=== PATIENT | female | born 1930 | race Caucasian/White ===

== ENCOUNTER 2018-03-28 13:56 | Outpatient (CLI) | payer MEDICARE, OTHER | END 2018-03-28 13:57 | disposition critical access hospital (66) | LOC: EMS 13:56 | PROVIDERS: ATTEND Surgery | DX: R53.1 Weakness (principal); R53.83 Other fatigue | CPT/HCPCS: A0425; A0429 ==

== ENCOUNTER 2018-03-28 14:09 | Emergency (ER) | payer MEDICARE, OTHER ==
--- NOTE | 2018-03-28 14:53 | ED Physician Documentation ---
History of Present Illness - Stated complaint Stated Complaint: FEVER - Chief complaint Chief Complaint: Fever - History obtained from History obtained from: Family - History of Present Illness Timing: Today Pain level max: 0 Pain level now: 0 - Additonal information Additional information: 87-year-old female with history of hypertension, pericardial cyst, asthma here from [facility] via EMS with son and daughter at the bedside who reported that patient had a fever today and was acting "lethargic". Patient and family denies any report of coughing, vomiting, diarrhea, headache. Denies any recent trauma or travel. Patient also has history of dementia so is unable to give good history but family the bedside provided more information. Review of Systems Unable to obtain: Dementia Ten Systems: 10 systems reviewed and negative Constitutional: reports: Fever. denies: Chills, Myalgias Ears: denies: Ear pain Nose: denies: Rhinorrhea / runny nose, Congestion Throat: denies: Sore throat Cardiac: denies: Chest pain / pressure Respiratory: denies: Dyspnea, Cough GI: denies: Abdominal Pain, Nausea, Vomiting, Diarrhea : denies: Dysuria, Frequency Skin: denies: Rash Musculoskeletal: reports: Other (Uses cane for walking). denies: Neck pain, Back pain, Extremity pain, Joint pain Neurologic: reports: Confused (Chronic related to dementia but currently on on baseline per family). denies: Generalized weakness, Focal weakness, Difficulty speaking, Syncope, Seizure, Altered mental status, Unresponsive, Headache, Head injury, LOC PD PAST MEDICAL HISTORY - Past Medical History Cardiovascular: Hypertension, High cholesterol, Other Respiratory: Asthma Neuro: Dementia Endocrine/Autoimmune: None GI: None RAILCAR SWITCHER: None : None HEENT: None Musculoskeletal: None Other Past Medical History: pericardial cyst - Past Surgical History Past Surgical History: Yes Ortho: Knee replacement /RAILCAR SWITCHER: Mastectomy - Present Medications Home Medications: Ambulatory Orders Medication Instructions Recorded Confirmed Aspirin 03/28/18 Atorvastatin [Lipitor] 03/28/18 Calcium Carbonate/Vitamin D3 03/28/18 [Oyster Shell 250 mg + Vit D Tb] Cephalexin [Keflex] 500 mg PO TID 7 Days #21 capsule 03/28/18 Donepezil [Aricept] 10 mg PO DAILY 03/28/18 03/28/18 Fluticasone 44 Mcg [Flovent] 03/28/18 Fluticasone 44 Mcg [Flovent] 1 puffs INH BID 03/28/18 03/28/18 Ipratropium [Atrovent] 1 puffs INH Q6H 03/28/18 03/28/18 Lisinopril/Hydrochlorothiazide 03/28/18 [Lisinopril-Hctz 20-25 mg Tab] Memantine HCl 10 mg PO 03/28/18 Triamterene/Hydrochlorothiazid 03/28/18 [Triamterene-Hctz 75-50 mg Tab] - Allergies Allergies/Adverse Reactions: Allergies Allergy/AdvReac Type Severity Reaction Status Date / Time No Known Drug Allergies Allergy Verified 03/28/18 16:27 - Social History Does the pt smoke?: No Smoking Status: Never smoker Does the pt drink ETOH?: No Does the pt have substance abuse?: No - Immunizations Immunizations are current?: Yes - POLST Patient has POLST: No PD ED PE NORMAL - General General: No acute distress, Well developed/nourished, Other (Awake and alert. Oriented to her name and birthday and family members at the bedside.) - HEENT HEENT: Atraumatic, PERRL, EOMI, Moist mucous membranes, Pharynx benign - Neck Neck: Supple, no meningeal sign - Cardiac Cardiac: RRR, No murmur - Respiratory Respiratory: No respiratory distress, Clear bilaterally - Abdomen Abdomen: Normal bowel sounds, Soft, Non tender, Non distended - Derm Derm: Normal color, Warm and dry, No rash, Other (Right hand dorsum with purplish ecchymosis that is nontender and no drainage nor swelling.) - Extremities Extremities: No deformity, No tenderness to palpate, Normal ROM s pain, No edema - Neuro Neuro: No motor deficit, No sensory deficit, Normal speech, Other (Awake alert oriented to her name and children at the bedside. Follows simple directions.Cooperative and pleasant. Clear speech. No pronator drift. Strength all extremities 5/5.) Eye Opening: Spontaneous Motor: Obeys Commands Verbal: Confused GCS Score: 14 - Psych Psych: Normal mood, Normal affect Results - Vitals Vitals: Vital Signs - 24 hr 03/28/18 14:12 Temperature 37.8 C H Heart Rate 84 Respiratory 16 Rate Blood Pressure 159/66 H O2 Saturation 96 Oxygen O2 Source Room air - Labs Labs: Laboratory Tests 03/28/18 03/28/18 03/28/18 15:04 15:04 15:04 WBC 16.6 H RBC 4.29 Hgb 12.1 Hct 36.3 L MCV 84.6 MCH 28.3 MCHC 33.4 RDW 14.0 Plt Count 179 MPV 7.4 L Neut # (Auto) 15.2 H Lymph # (Auto) 0.3 L [place] # (Auto) 1.0 Eos # (Auto) 0.0 Baso # (Auto) 0.0 Absolute Nucleated RBC 0.00 Nucleated RBC % 0.0 Sodium 131 L Potassium 3.2 L Chloride 93 L Carbon Dioxide 27 Anion Gap 11.0 BUN 31 H Creatinine 1.2 H Estimated GFR (MDRD) 42 L Glucose 200 H Lactic Acid 2.0 Calcium 9.4 Total Bilirubin 0.7 AST 27 ALT 15 Alkaline Phosphatase 43 Total Protein 7.5 Albumin 3.7 Globulin 3.8 Albumin/Globulin Ratio 1.0 Lipase 25 Urine Color Urine Clarity Urine pH Ur Specific [place] Urine Protein Urine Glucose (UA) Urine Ketones Urine Occult Blood Urine Nitrite Urine Bilirubin Urine Urobilinogen Ur Leukocyte Esterase Urine RBC Urine WBC Ur Squamous Epith Cells Urine Bacteria Ur Microscopic Review Urine Culture Comments 03/28/18 15:48 WBC RBC Hgb Hct MCV MCH MCHC RDW Plt Count MPV Neut # (Auto) Lymph # (Auto) [place] # (Auto) Eos # (Auto) Baso # (Auto) Absolute Nucleated RBC Nucleated RBC % Sodium Potassium Chloride Carbon Dioxide Anion Gap BUN Creatinine Estimated GFR (MDRD) Glucose Lactic Acid Calcium Total Bilirubin AST ALT Alkaline Phosphatase Total Protein Albumin Globulin Albumin/Globulin Ratio Lipase Urine Color DARK YELLOW Urine Clarity HAZY Urine pH 6.0 Ur Specific [place] 1.020 Urine Protein TRACE Urine Glucose (UA) NEGATIVE Urine Ketones NEGATIVE Urine Occult Blood SMALL H Urine Nitrite NEGATIVE Urine Bilirubin NEGATIVE Urine Urobilinogen 0.2 (NORMAL) Ur Leukocyte Esterase TRACE H Urine RBC 0-5 Urine WBC 6-10 H Ur Squamous Epith Cells FEW Squamous Urine Bacteria None Seen Ur Microscopic Review INDICATED Urine Culture Comments INDICATED PD MEDICAL DECISION MAKING - ED course Complexity details: re-evaluated patient ([id number] ), considered differential (UTI, pneumonia, sepsis), d/w patient, d/w family Departure - Departure Disposition: 01 Home, Self Care Clinical Impression: Hypokalemia Fever Qualifiers: Encounter type: initial encounter UTI (urinary tract infection) Qualifiers: Urinary tract infection type: acute cystitis Hematuria presence: without hematuria Qualified Code(s): N30.00 - Acute cystitis without hematuria Condition: Stable Instructions: ED Fever Control, ED Potassium Deficiency, ED UTI Cystitis Female Prescriptions: Cephalexin [Keflex] 500 mg PO TID 7 Days #21 capsule Comments: Drink 6 glasses of water a day. Take the antibiotics for your urinary tract infection. Blood cultures and urine cultures are pending. Eat foods that are high in potassium. Have your primary doctor recheck your potassium level on Friday. If worse return to the emergency room.
[2018-03-28 15:20] LABS: BASOPHILS % (AUTO) 0.1 %; HGB - HEMOGLOBIN 12.1 g/dL (12.0-16.0); LYMPHOCYTES # (AUTO) 0.3 10^3/uL (1.5-3.5); LYMPHOCYTES % (AUTO) 2.1 %; MEAN CORPUSCULAR HEMOGLOBIN 28.3 pg (27.0-31.0); MEAN CORPUSCULAR HGB CONC 33.4 g/dL (32.0-36.0); MEAN CORPUSCULAR VOLUME 84.6 fL (81.0-99.0); MEAN PLATELET VOLUME 7.4 fL (7.9-10.8); MONOCYTES % (AUTO) 6.2 %; NEUTROPHILS # (AUTO) 15.2 10^3/uL (1.5-6.6); NEUTROPHILS % (AUTO) 91.6 %; PLT - PLATELET COUNT 179 10^3/uL (130-450); RED BLOOD COUNT 4.29 10^6/uL (4.20-5.40); WHITE BLOOD COUNT 16.6 x10^3/uL (4.8-10.8)
[2018-03-28 15:27] LABS: ALBUMIN 3.7 g/dL (3.2-5.5); BILIRUBIN,TOTAL 0.7 mg/dL (0.2-1.0); CALCIUM 9.4 mg/dL (8.5-10.3); CREATININE 1.2 mg/dL (0.4-1.0); TOTAL PROTEIN 7.5 g/dL (6.7-8.2)
--- NOTE | 2018-03-28 15:40 | XRAY Report ---
Reason: chest pain Procedure Date: 03/28/2018 Accession Number: [id number] / [id number] Procedure: XR - Chest 1 View X-Ray CPT Code: 79988 FULL RESULT: EXAM: CHEST RADIOGRAPHY EXAM DATE: 03/28/2018 03:10 PM. CLINICAL HISTORY: Chest pain. COMPARISON: None. TECHNIQUE: 1 view. FINDINGS: Lungs/Pleura: Right cardiophrenic angle fat pad versus atelectasis.. No pleural effusion. No pneumothorax. Plan the mid diaphragms. Mediastinum: Within exam limitations, the cardiomediastinal contour is normal. Other: None. IMPRESSION: Right basilar atelectasis versus fat pad RADIA
[2018-03-28 16:02] LABS: BILIRUBIN,URINE NEGATIVE (NEGATIVE); GLUCOSE, URINE (UA) NEGATIVE (NEGATIVE); KETONES,URINE (UA) NEGATIVE (NEGATIVE); LEUKOCYTE ESTERASE, URINE TRACE (NEGATIVE); NITRITE,URINE NEGATIVE (NEGATIVE); OCCULT BLOOD,URINE SMALL (NEGATIVE); PROTEIN,URINE TRACE mg/dL (NEGATIVE); UROBILINOGEN,URINE 0.2 (NORMAL) E.U./dL (NORMAL)
[2018-03-28 16:04] LABS: CLARITY,URINE HAZY (CLEAR)
[2018-03-28 16:13] LABS: BACTERIA,URINE None Seen /HPF (None Seen); RBC,URINE 0-5 /HPF (0-5); SQUAMOUS EPITHELIAL CELL,UR FEW Squamous (<= Few)
[2018-03-28] MEDS ORDERED: cefTRIAXone 1 GM in SODIUM CHLORIDE 0.9% MINIBAG 100 ML IV STA (16:16)
[2018-03-28] MEDS ORDERED: SODIUM CHLORIDE 0.9% 500 ML IV ONE (16:16)
[2018-03-28] MEDS ORDERED: POTASSIUM CHLORIDE 20 MEQ TABLET PO STA (16:17)
[2018-03-28] MEDS ORDERED: ACETAMINOPHEN 325 MG TABLET PO STA (17:22)
[2018-03-28 17:49] VITALS: BP 148/55
== END 2018-03-28 17:57 | disposition home or self-care (01) ==
LOC: EDUNIT# → ED 14:09
DX: E87.6 Hypokalemia (principal); R50.9 Fever, unspecified; N30.00 Acute cystitis without hematuria; I10 Essential (primary) hypertension; F03.90 Unspecified dementia, unspecified severity, without behavioral disturbance, psychotic disturbance, mood disturbance, and anxiety
CPT/HCPCS: 36415; 71045; 80053; 81001; 83605; 83690; 85025; 87040; 87086; 87181; 96365; 99283; A9270; 81003

== ENCOUNTER 2018-03-29 09:55 | Outpatient (CLI) | payer MEDICARE, OTHER | END 2018-03-29 09:56 | disposition critical access hospital (66) | LOC: EMS 09:55 | PROVIDERS: ATTEND Surgery | DX: R53.1 Weakness (principal); R41.0 Disorientation, unspecified | CPT/HCPCS: A0425; A0429 ==

== ENCOUNTER 2018-03-29 10:15 | Inpatient (IN) | payer MEDICARE, OTHER ==
[2018-03-29] MEDS ORDERED: VANCOMYCIN INJ 1.5 GM in SODIUM CHLORIDE 0.9% 500 ML IV STA (10:19)
--- NOTE | 2018-03-29 10:20 | ED Physician Documentation ---
History of Present Illness - Stated complaint Stated Complaint: WEAKNESS - History obtained from History obtained from: Patient, EMS - History of Present Illness Timing: Today (This is a leonard but demented 87-year-old woman who was called back from assisted living because she was seen last night with a fever and weakness. She had a white count of 16,000 and her blood cultures are both preliminarily positive for staph. She did have a fever this morning of 101. She is a poor historian, she complains of some breathing difficulties that been going on for years. When asked her if she has a cough she responds "not if I can help it." She does not remember being here last night.) Review of Systems Unable to obtain: Dementia PD PAST MEDICAL HISTORY - Past Medical History Cardiovascular: Hypertension, High cholesterol, Other Respiratory: Asthma Neuro: Dementia Endocrine/Autoimmune: None GI: None MR TEACHER: None : None HEENT: None Musculoskeletal: None - Past Surgical History Past Surgical History: Yes Ortho: Knee replacement /MR TEACHER: Mastectomy - Present Medications Home Medications: Ambulatory Orders Medication Instructions Recorded Confirmed Aspirin 03/28/18 Atorvastatin [Lipitor] 03/28/18 Calcium Carbonate/Vitamin D3 03/28/18 [Oyster Shell 250 mg + Vit D Tb] Cephalexin [Keflex] 500 mg PO TID 7 Days #21 capsule 03/28/18 Donepezil [Aricept] 10 mg PO DAILY 03/28/18 03/28/18 Fluticasone 44 Mcg [Flovent] 03/28/18 Fluticasone 44 Mcg [Flovent] 1 puffs INH BID 03/28/18 03/28/18 Ipratropium [Atrovent] 1 puffs INH Q6H 03/28/18 03/28/18 Lisinopril/Hydrochlorothiazide 03/28/18 [Lisinopril-Hctz 20-25 mg Tab] Memantine HCl 10 mg PO 03/28/18 Triamterene/Hydrochlorothiazid 03/28/18 [Triamterene-Hctz 75-50 mg Tab] - Allergies Allergies/Adverse Reactions: Allergies Allergy/AdvReac Type Severity Reaction Status Date / Time No Known Drug Allergies Allergy Verified 03/28/18 16:27 - Social History Does the pt smoke?: No Smoking Status: Never smoker Does the pt drink ETOH?: No Does the pt have substance abuse?: No - Immunizations Immunizations are current?: Yes - POLST Patient has POLST: No PD ED PE NORMAL - Vitals Vital signs reviewed: Yes - General General: Other (Alert, cooperative, NAD) - HEENT HEENT: PERRL, EOMI - Neck Neck: Supple, no meningeal sign, No bony TTP - Cardiac Cardiac: RRR, No murmur - Respiratory Respiratory: Other (Diminished at bases.) - Abdomen Abdomen: Soft, Non tender - Back Back: No CVA TTP, No spinal TTP - Derm Derm: Other (Some small picked at lesions on the legs without evidence of ce llulitis.) - Extremities Extremities: No edema, No calf tenderness / cord - Neuro 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 2-12 intact Eye Opening: Spontaneous Motor: Obeys Commands Verbal: Confused GCS Score: 14 - Psych Psych: Normal mood, Normal affect Results - Vitals Vitals: Vital Signs - 24 hr 03/29/18 03/29/18 03/29/18 10:19 10:25 11:06 Temperature 37.0 C 101.2 C H Heart Rate 100 87 Respiratory 16 24 Rate Blood Pressure 160/103 H 166/68 H O2 Saturation 94 98 Oxygen O2 Source Nasal cannula - Labs Labs: Laboratory Tests 03/29/18 03/29/18 03/29/18 10:34 10:34 10:34 WBC 12.2 H RBC 4.35 Hgb 12.4 Hct 37.2 MCV 85.5 MCH 28.6 MCHC 33.4 RDW 13.9 Plt Count 145 MPV 7.4 L Neut # (Auto) 10.9 H Lymph # (Auto) 0.5 L [place] # (Auto) 0.7 Eos # (Auto) 0.0 Baso # (Auto) 0.0 Absolute Nucleated RBC 0.01 Nucleated RBC % 0.1 Sodium 132 L Potassium 3.3 L Chloride 94 L Carbon Dioxide 28 Anion Gap 10.0 BUN 33 H Creatinine 1.1 H Estimated GFR (MDRD) 47 L Glucose 159 H Lactic Acid 1.5 Calcium 9.2 PD MEDICAL DECISION MAKING - ED course ED course: 87-year-old woman who returns as requested for positive blood cultures with staph. She appears well. Labs will repeat be repeated and she is placed on vancomycin. Spoke with Dr. Rincon for admission at 10:25 AM Departure - Departure Disposition: [facility] DC/Xfer Clinical Impression: Bacteremia Condition: Serious
[2018-03-29] MEDS ORDERED: oxyCODONE 5 MG TABLET PO PRN (10:44)
[2018-03-29] MEDS ORDERED: ONDANSETRON 4 MG/2 ML VIAL IVP PRN (10:44)
[2018-03-29] MEDS ORDERED: PROCHLORPERAZINE 10 MG/2 ML VIAL IVP PRN (10:44)
[2018-03-29] MEDS ORDERED: PROMETHAZINE 25 MG/1 ML VIAL IM PRN (10:44)
[2018-03-29 10:45] LABS: BASOPHILS % (AUTO) 0.1 %; HGB - HEMOGLOBIN 12.4 g/dL (12.0-16.0); LYMPHOCYTES # (AUTO) 0.5 10^3/uL (1.5-3.5); LYMPHOCYTES % (AUTO) 4.3 %; MEAN CORPUSCULAR HEMOGLOBIN 28.6 pg (27.0-31.0); MEAN CORPUSCULAR HGB CONC 33.4 g/dL (32.0-36.0); MEAN CORPUSCULAR VOLUME 85.5 fL (81.0-99.0); MEAN PLATELET VOLUME 7.4 fL (7.9-10.8); MONOCYTES # (AUTO) 0.7 10^3/uL (0.0-1.0); NEUTROPHILS # (AUTO) 10.9 10^3/uL (1.5-6.6); NEUTROPHILS % (AUTO) 89.6 %; PLT - PLATELET COUNT 145 10^3/uL (130-450); RED BLOOD COUNT 4.35 10^6/uL (4.20-5.40); RED CELL DISTRIBUTION WIDTH 13.9 % (12.0-15.0); WHITE BLOOD COUNT 12.2 x10^3/uL (4.8-10.8)
[2018-03-29 10:52] LABS: CALCIUM 9.2 mg/dL (8.5-10.3); CREATININE 1.1 mg/dL (0.4-1.0)
[2018-03-29] MEDS ORDERED: VANCOMYCIN 1 GM VIAL ONE (10:52)
[2018-03-29] MEDS ORDERED: SODIUM CHLORIDE 0.9% 500 ML IV ONE (10:53)
[2018-03-29] MEDS ORDERED: IPRATROPIUM/ALBUTEROL 3 ML NEB INH STA (11:09)
[2018-03-29] MEDS ORDERED: cefTRIAXone 1 GM in SODIUM CHLORIDE 0.9% MINIBAG 100 ML IV SCH (13:00)
[2018-03-29] MEDS: NS W/20 MEQ KCL 1,000 ML IV SCH (14:09)
--- NOTE | 2018-03-29 16:32 | HISTORY & PHYSICAL EXAMINATION ---
Chief Complaint - Chief Complaint Chief Complaint: Fever History of Present Illness - Admitted From Admitted From:: Emergency Department - History Obtained From Records Reviewed: Yes History obtained from: Patient and medical records Exam Limitations: Patient has dementia and is a poor historian - History of Present Illness HPI Comment/Other: Patient is an 87-year-old female with a past medical history significant for hyp ertension, hyperlipidemia, pericardial cyst, dementia, history of breast cancer status post mastectomy, osteoarthritis status post knee replacement and asthma who lives at [facility] on [facility] and presented to the emergency department with fever. The patient is a poor historian secondary to her dementia and most of the history is provided by the medical records. The patient was in her normal state of health until yesterday afternoon when the patient appeared lethargic at her assisted living facility. At that time the patient was also noted to have a fever of 103 F. She was sent from the assisted living facility to the emergency department. On arrival to the emergency department the patient was found to have a leukocytosis of 16.6 but was afebrile in the emergency department and had a lactic acid of just 1.5. The patient did have a mild renal failure with a creatinine of 1.2 and BUN of 31. The patient's workup revealed that she had a urinary tract infection therefore she was given a dose of IV antibiotics in the emergency department and IV fluids. The patient appeared to have perked up and was discharged back to the assisted living facility with oral antibiotics. During the workup in the emergency department the patient did have blood cultures drawn. This morning the lab called the emergency department to report that the patient's blood cultures were positive for gram-positive cocci in clusters likely to be staph aureus. The emergency room physician called [facility] and asked for the patient to be brought back to the emergency department given her positive blood cultures. The [facility] facility reported that this morning the patient was slightly hypoxic with oxygen saturation of 87% and continued to be febrile. The patient herself does not know why she is in the hospital and does not even know that she is in the hospital as she states she thinks that she is still at [facility]. She does not have any complaints and is alert when I spoke with her. The patient denies any headaches, blurred vision, runny nose, sore throat, nasal congestion, chest pain, shortness of air, cough, orthopnea, PND, increased lower extremity swelling, abdominal pain, nausea, vomiting, dysuria, diarrhea, increased urinary frequency, muscle aches, joint pain, joint swelling, back pain, neck stiffness, recent unintentional weight loss, changes in her appetite, skin changes, skin rash, polyuria, polydipsia, night sweats or any focal neurologic deficits. On presentation to the emergency department the patient was febrile with a temperature of 101.2 F, tachycardic with a heart rate of 100 and slightly hypertensive with a blood pressure 160/103 3. The patient was saturating at 94% on room air but then did drop her oxygen saturation to 84% and was placed on 2 L of oxygen. The patient underwent routine lab work and was found to have a leukocytosis with a WBC of 12.2, mild hyponatremia with a sodium of 132, hypokalemia with a potassium of 3.3 and a mildly elevated creatinine of 1.1 with a BUN of 33. The patient did have a chest x-ray from the prior day which showed a right basilar atelectasis versus fat pad. No x-ray was done in the emergency department today despite her hypoxia. The patient was admitted to the [facility] for bacteremia with staph aureus. She did not have any obvious cellulitis or source for a staph aureus bacteremia. She will undergo an echocardiogram and further blood cultures during her hospitalization. She was given a dose of IV vancomycin in the emergency department. History - Past Medical History Cardiovascular: reports: Hypertension, High cholesterol, Other Respiratory: reports: Asthma Neuro: reports: Dementia Endocrine/Autoimmune: reports: None GI: reports: None ESCROW AGENT: reports: None : reports: None HEENT: reports: None Musculoskeletal: reports: Osteoarthritis Other Past Medical History: Breast cancer status post mastectomy. Pericardial cyst - Past Surgical History Ortho: reports: Knee replacement /ESCROW AGENT: reports: Mastectomy - Family & Social History Family History: Mother: (Father at a young age of coronary artery disease), CAD, Father: , CAD, Sister: Living arrangement: Assisted living Living Situation: With caregiver(s) Social History Notes: The patient lives at an assisted living facility called [facility]. She previously lived with her son in [place] but was moved to the assisted living facility due to worsening dementia. The patient is and has 2 children 1 son and 1 daughter. 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 She was born in [place] where she went to high school and then moved to [facility] as her dad moved here to work in shipyards. She has never smoked, she does not drink alcohol and denies any illicit drug use. - POLST Patient has POLST: No POLST Status: DNR Meds/Allgy - Home Medications Home Medications: Ambulatory Orders Medication Instructions Recorded Confirmed Aspirin 81 mg PO DAILY 03/28/18 03/29/18 Atorvastatin [Lipitor] 10 mg PO QPM 03/28/18 03/29/18 Donepezil [Aricept] 10 mg PO QPM 03/28/18 03/29/18 Ipratropium [Atrovent] 1 puffs INH BID 03/28/18 03/29/18 Memantine HCl 10 mg PO DAILY 03/28/18 03/29/18 Triamterene/Hydrochlorothiazid 1 tab PO DAILY 03/28/18 03/29/18 [Triamterene-Hctz 75-50 mg Tab] Albuterol Sulf [Ventolin Hfa 2 puffs INH QID PRN 03/29/18 03/29/18 Inhaler] Calcium Carbonate/Vitamin D3 1 tab PO TID 03/29/18 03/29/18 [Calcium 500-Vit D3 200 Tablet] Cholecalciferol (Vitamin D3) 400 unit PO BID 03/29/18 03/29/18 [Vitamin D3] Fluticasone 110 Mcg [Flovent] 2 puffs INH BID 03/29/18 03/29/18 Lisinopril 20 mg PO BID 03/29/18 03/29/18 amLODIPine [Norvasc] 2.5 mg PO DAILY 03/29/18 03/29/18 - Allergies Allergies/Adverse Reactions: Allergies Allergy/AdvReac Type Severity Reaction Status Date / Time No Known Drug Allergies Allergy Verified 03/28/18 16:27 Review of Systems - Other Findings Other Findings: A comprehensive review of systems was performed the pertinent positives and negatives are stated above in the HPI and the remainder of the review of systems is negative. Prior Level of Functionality: The patient has dementia and is mostly dependent for her activities of daily living. She lives at an assisted living facility [facility]. Exam - Vital Signs Reviewed Vital Signs: Yes Vital Signs: Vital Signs x48h Temp Pulse Pulse Resp BP BP Pulse Ox 03/29/18 15:34 36.5 C 89 147/55 H 98 03/29/18 14:53 101.2 C H 81 17 98 03/29/18 12:00 81 17 149/55 H 98 03/29/18 11:22 91 18 03/29/18 11:06 87 24 166/68 H 98 03/29/18 10:25 101.2 C H 03/29/18 10:19 37.0 C 100 16 160/103 H 94 - Physical Exam General Appearance: positive: No acute distress, Alert Eyes Bilateral: positive: Normal inspection, PERRL, EOMI, No lid inflammation, Conjunctivae nml, No scleral icterus ENT: positive: ENT inspection nml, Pharynx nml, Dry mucous membranes. negative: Purulent nasal drainage, Pharyngeal erythema, Oral lesions Neck: positive: Nml inspection, Thyroid nml, No JVD, Trachea midline. negative: Thyromegaly, Lymphadenopathy (R), Lymphadenopathy (L), Carotid bruit, Tracheal deviation Respiratory: positive: Chest non-tender, No respiratory distress, Rales (Bases) Cardiovascular: positive: Regular rate & rhythm, No gallop, Systolic murmur Peripheral Pulses: positive: 2+ Abdomen: positive: Non-tender, No organomegaly, Nml bowel sounds, No distention. negative: Guarding, Rebound, Hepatomegaly Back: positive: Nml inspection. negative: CVA tenderness (R), CVA tenderness (L) Skin: positive: Color nml, No rash, Warm, Dry. negative: Cyanosis, Diaphoresis, Pallor Extremities: positive: Non-tender, Full ROM, Nml appearance, No pedal edema Neurologic/Psychiatric: positive: CN's nml (2-12), Motor nml, Sensation nml, Mood/affect nml, Disoriented to place, Disoriented to time Conclusion/Plan - Problem List (1) Bacteremia due to Gram-positive bacteria Conclusion/Plan: Patient presented with fever and leukocytosis as well as decreased level of consciousness yesterday. Patient was thought to have urinary tract infection and responded well to IV antibiotics and fluids and was sent back to assisted living facility. At that time patient underwent blood culture which returned back positive today and patient was brought back to the emergency department. The patient continues to have fevers. Patient's blood cultures are growing gram-positive cocci in clusters likely staph aureus. Patient given vancomycin IV in the emergency department and admitted. The source of the staph aureus bacteremia is unclear at this point. The patient's urine culture from yesterday is polymicrobial and she does not have any skin soft tissue infections that are obvious. The patient does have a history of a pericardial cyst which makes me wonder if patient could have endocarditis as the source. Plan: IV vancomycin IV fluids Repeat blood cultures daily Await culture and sensitivities to de-escalate antibiotics Echocardiogram Repeat chest x-ray Patient will need 14 days of antibiotics from date of negative blood culture. (2) UTI (urinary tract infection) Conclusion/Plan: The patient was found to have a positive urine analysis on presentation to the emergency department yesterday and was given IV ceftriaxone and discharged back to her assisted living facility with Keflex orally. It appears that the culture from yesterday is growing less than 10,000 polymicrobial growth which likely suggests a contaminant in her urine culture. Given that the patient did have presentation with fever and does have bacteremia we will treat her for possible urinary tract infection with ceftriaxone IV. We will follow-up blood cultures and de-escalate antibiotics accordingly. Qualifiers: Urinary tract infection type: acute cystitis Hematuria presence: without hematuria Qualified Code(s): N30.00 - Acute cystitis without hematuria (3) AASHISH (acute kidney injury) Conclusion/Plan: The patient appeared to be dehydrated on examination with hypo-natremia and hypokalemia patient's BUN was also elevated and is elevated at 1.1. Patient appears to have acute kidney injury likely due to ongoing infection and bacteremia. Patient will be given IV fluids and we will continue to monitor the patient's creatinine. We will avoid any nephrotoxic agents. (4) Hypokalemia Conclusion/Plan: The patient is hypokalemic on presentation with a potassium of 3.3. This is likely secondary to the patient being slightly dehydrated from her infection. The patient's potassium will be replaced and will continue to monitor her potassium while she is hospitalized. (5) Hyponatremia Conclusion/Plan: Patient's sodium on presentation is 132. Patient has hypovolemic hyponatremia. Patient was given IV fluids and we will continue to monitor the patient's sodium. (6) Dementia Conclusion/Plan: The patient has a history of dementia and is on Aricept and memantine at home. We will continue these medications while she is hospitalized. We will need to watch out for delirium and sundowning. The patient will need to be frequently oriented. She has very poor memory. Qualifiers: Dementia type: unspecified type Dementia behavioral disturbance: without behavioral disturbance Qualified Code(s): F03.90 - Unspecified dementia without behavioral disturbance (7) Hypertension Conclusion/Plan: The patient has a history of hypertension and patient's blood pressure is elevated on presentation. Despite the patient being bacteremic she does not appear to be septic at this time as her blood pressure is elevated and lactic acid is normal. Patient will be continued on her antihypertensive medications for now. We will continue to monitor the patient's blood pressure and titrate medications as needed. Qualifiers: Hypertension type: essential hypertension Qualified Code(s): I10 - Essential (primary) hypertension (8) Asthma Conclusion/Plan: The patient has a history of asthma and is on albuterol as needed, Atrovent as needed along with Flovent at home. While the patient is hospitalized we will place the patient on budesonide nebulizer twice daily along with duo nebs as needed. Currently the patient is on 2 L of oxygen as she was hypoxic on presentation. She is not wheezing on examination. We will repeat a chest x-ray to confirm that the patient does not have a pneumonia as the initial chest x- ray did not show evidence of pneumonia. Qualifiers: Asthma severity: unspecified severity Asthma persistence: unspecified Asthma complication type: unspecified Qualified Code(s): J45.909 - Unspecified asthma, uncomplicated (9) Hyperlipidemia Conclusion/Plan: The patient has a history of hyperlipidemia and is on Lipitor at home. Currently she appears to be stable and we will continue her home dose of Lipitor. Qualifiers: Hyperlipidemia type: unspecified Qualified Code(s): E78.5 - Hyperlipidemia, unspecified - Lab Results Lab results reviewed: Yes Fish Bones: 03/29/18 10:34 03/29/18 10:34 Other Lab Results: Laboratory Results WBC 12.2 x10^3/uL (4.8-10.8) H 03/29/18 10:34 RBC 4.35 10^6/uL (4.20-5.40) 03/29/18 10:34 Hgb 12.4 g/dL (12.0-16.0) 03/29/18 10:34 Hct 37.2 % (37.0-47.0) 03/29/18 10:34 MCV 85.5 fL (81.0-99.0) 03/29/18 10:34 MCH 28.6 pg (27.0-31.0) 03/29/18 10:34 MCHC 33.4 g/dL (32.0-36.0) 03/29/18 10:34 RDW 13.9 % (12.0-15.0) 03/29/18 10:34 Plt Count 145 10^3/uL (130-450) 03/29/18 10:34 MPV 7.4 fL (7.9-10.8) L 03/29/18 10:34 Neut # (Auto) 10.9 10^3/uL (1.5-6.6) H 03/29/18 10:34 Lymph # (Auto) 0.5 10^3/uL (1.5-3.5) L 03/29/18 10:34 Quay # (Auto) 0.7 10^3/uL (0.0-1.0) 03/29/18 10:34 Eos # (Auto) 0.0 10^3/uL (0.0-0.7) 03/29/18 10:34 Baso # (Auto) 0.0 10^3/uL (0.0-0.1) 03/29/18 10:34 Absolute Nucleated RBC 0.01 x10^3/uL 03/29/18 10:34 Nucleated RBC % 0.1 /100WBC 03/29/18 10:34 Sodium 132 mmol/L (135-145) L 03/29/18 10:34 Potassium 3.3 mmol/L (3.5-5.0) L 03/29/18 10:34 Chloride 94 mmol/L (101-111) L 03/29/18 10:34 Carbon Dioxide 28 mmol/L (21-32) 03/29/18 10:34 Anion Gap 10.0 (6-13) 03/29/18 10:34 BUN 33 mg/dL (6-20) H 03/29/18 10:34 Creatinine 1.1 mg/dL (0.4-1.0) H 03/29/18 10:34 Estimated GFR (MDRD) 47 (>89) L 03/29/18 10:34 Glucose 159 mg/dL (70-100) H 03/29/18 10:34 Lactic Acid 1.5 mmol/L (0.5-2.2) 03/29/18 10:34 Calcium 9.2 mg/dL (8.5-10.3) 03/29/18 10:34 - Diagnostic Imaging Results Diagnostic Imaging Results: positive: Final report reviewed Diagnostic Imaging Results Comments: Chest x-ray Impression: Right basilar atelectasis versus fat pad Core Measures - Anticipated LOS I expect patient to be DC'd or transferred within 96 hours.: Yes - DVT/VTE - Prophylaxis VTE/DVT Prophylaxis med ordered at admit?: Yes
[2018-03-29] MEDS: SODIUM CHLORIDE FLUSH 0.9% 10 ML SYRINGE IVP SCH (17:46)
[2018-03-29] MEDS: cefTRIAXone 1 GM in SODIUM CHLORIDE 0.9% MINIBAG 100 ML IV SCH (17:46)
[2018-03-29] MEDS: SACCHAROMYCES BOULARDII 250 MG CAPSULE PO SCH (17:46)
[2018-03-29] MEDS: IBUPROFEN 600 MG TABLET PO PRN (18:55)
--- NOTE | 2018-03-29 19:28 | XRAY Report ---
Reason: Hypoxia Procedure Date: 03/29/2018 Accession Number: [id number] / [id number] Procedure: XR - Chest 1 View X-Ray CPT Code: 26065 FULL RESULT: EXAM: CHEST RADIOGRAPHY EXAM DATE: 03/29/2018 04:48 PM. CLINICAL HISTORY: Worsening hypoxia.. COMPARISON: CHEST 1 VIEW 03/28/2018 3:10 PM. TECHNIQUE: 1 view. FINDINGS: Lungs/Pleura: Mild increasing linear opacities at the right base, otherwise no focal opacities evident. No pleural effusion. No pneumothorax. Mediastinum: Within exam limitations, the cardiomediastinal contour is normal. Other: No acute bony abnormalities noted. IMPRESSION: Worsening right base atelectasis. RADIA
[2018-03-29] MEDS: CHOLECALCIFEROL 400 UNIT TABLET PO SCH (20:39)
[2018-03-29] MEDS: FAMOTIDINE 20 MG TABLET PO SCH (20:39)
[2018-03-29] MEDS: LISINOPRIL 20 MG TABLET PO SCH (20:39)
[2018-03-29] MEDS: ATORVASTATIN 10 MG TABLET PO SCH (20:39)
[2018-03-30] MEDS: NS W/20 MEQ KCL 1,000 ML IV SCH ×3 (00:39→12:24)
[2018-03-30] MEDS: BUDESONIDE 0.5 MG/2 ML NEB INH SCH ×3 (01:31→20:04)
[2018-03-30] MEDS: SODIUM CHLORIDE FLUSH 0.9% 10 ML SYRINGE IVP SCH ×3 (02:20→16:04)
[2018-03-30] MEDS: VANCOMYCIN INJ 1 GM in SODIUM CHLORIDE 0.9% 250 ML IV SCH ×2 (04:18→23:01)
[2018-03-30 05:45] LABS: BASOPHILS % (AUTO) 0.3 %; EOSINOPHILS % (AUTO) 0.6 %; HGB - HEMOGLOBIN 11.1 g/dL (12.0-16.0); LYMPHOCYTES # (AUTO) 0.7 10^3/uL (1.5-3.5); LYMPHOCYTES % (AUTO) 10.1 %; MEAN CORPUSCULAR HEMOGLOBIN 28.4 pg (27.0-31.0); MEAN CORPUSCULAR HGB CONC 32.9 g/dL (32.0-36.0); MEAN CORPUSCULAR VOLUME 86.3 fL (81.0-99.0); MEAN PLATELET VOLUME 7.7 fL (7.9-10.8); MONOCYTES # (AUTO) 0.8 10^3/uL (0.0-1.0); MONOCYTES % (AUTO) 11.5 %; NEUTROPHILS # (AUTO) 5.2 10^3/uL (1.5-6.6); NEUTROPHILS % (AUTO) 77.5 %; PLT - PLATELET COUNT 119 10^3/uL (130-450); RED BLOOD COUNT 3.92 10^6/uL (4.20-5.40); RED CELL DISTRIBUTION WIDTH 14.1 % (12.0-15.0); WHITE BLOOD COUNT 6.8 x10^3/uL (4.8-10.8)
[2018-03-30 05:53] LABS: ALBUMIN 2.6 g/dL (3.2-5.5); ALBUMIN/GLOBULIN RATIO 0.8 (1.0-2.2); BILIRUBIN,TOTAL 0.6 mg/dL (0.2-1.0); CREATININE 0.8 mg/dL (0.4-1.0); TOTAL PROTEIN 5.8 g/dL (6.7-8.2)
[2018-03-30] MEDS: MEMANTINE 5 MG TABLET PO SCH (08:51)
[2018-03-30] MEDS: POLYETHYLENE GLYCOL 3350 17 GM PACKET PO SCH (08:51)
[2018-03-30] MEDS: CHOLECALCIFEROL 400 UNIT TABLET PO SCH ×2 (08:51→21:23)
[2018-03-30] MEDS: amLODIPine 5 MG TABLET PO SCH (08:51)
[2018-03-30] MEDS: SACCHAROMYCES BOULARDII 250 MG CAPSULE PO SCH ×2 (08:51→16:06)
[2018-03-30] MEDS: ASPIRIN CHEW 81 MG TABLET PO SCH (08:51)
[2018-03-30] MEDS: LISINOPRIL 20 MG TABLET PO SCH ×2 (08:51→22:01)
[2018-03-30] MEDS: TRIAMT/HCTZ 37.5 MG/25 MG CAPSULE PO SCH (08:52)
[2018-03-30] MEDS: ENOXAPARIN 40 MG/0.4 ML SYRINGE SUBQ SCH (08:57)
[2018-03-30] MEDS: DONEPEZIL 5 MG TABLET PO SCH (08:57)
[2018-03-30] MEDS: cefTRIAXone 1 GM in SODIUM CHLORIDE 0.9% MINIBAG 100 ML IV SCH (16:03)
--- NOTE | 2018-03-30 19:15 | PROVIDER PROGRESS NOTE ---
Assessment/Plan - Problem List (1) Bacteremia due to Gram-positive bacteria Assessment/Plan: Patient presented with fever and leukocytosis as well as decreased level of consciousness yesterday. Patient was thought to have urinary tract infection and responded well to IV antibiotics and fluids and was sent back to assisted living facility. At that time patient underwent blood culture which returned back positive and patient was brought back to the emergency department. The patient continued to have fevers. Patient's blood cultures are growing staph aureus with sensitives to follow. The patient's urine culture growing polymicrobial and she does not have any skin soft tissue infections that are obvious. The patients echo does not show endocarditis. Plan: Continue IV vancomycin IV fluids Repeat blood cultures positive Awaiting sensitivities to de-escalate antibiotics Echocardiogram Repeat chest x-ray Patient will need at least 14 days of antibiotics from date of negative blood culture. (2) UTI (urinary tract infection) Conclusion/Plan: The patient was found to have a positive urine analysis on presentation to the emergency department yesterday and was given IV ceftriaxone and discharged back to her assisted living facility with Keflex orally. It appears that the culture from yesterday is growing less than 10,000 polymicrobial growth which likely suggests a contaminant in her urine culture. Given that the patient did have presentation with fever and does have bacteremia we will treat her for possible urinary tract infection with ceftriaxone IV. We will follow-up blood cultures and de-escalate antibiotics accordingly. Qualifiers: Urinary tract infection type: acute cystitis Hematuria presence: without hematuria Qualified Code(s): N30.00 - Acute cystitis without hematuria (3) AASHISH (acute kidney injury) Conclusion/Plan: Resolved with IVFs (4) Hypokalemia Conclusion/Plan: Worse today down to 3.1 Replace Monitor (5) Hyponatremia Conclusion/Plan: Patient's sodium on presentation is 132 down to 130 today. Patient has hypo volemic hyponatremia. Patient will continue on IV fluids and we will continue to monitor the patient's sodium. (6) Dementia Conclusion/Plan: The patient has a history of dementia and is on Aricept and memantine at home. We will continue these medications while she is hospitalized. We will need to watch out for delirium and sundowning. The patient will need to be frequently oriented. She has very poor memory. Qualifiers: Dementia type: unspecified type Dementia behavioral disturbance: without b ehavioral disturbance Qualified Code(s): F03.90 - Unspecified dementia without behavioral disturbance (7) Hypertension Conclusion/Plan: The patient has a history of hypertension and patient's blood pressure is elevated on presentation. Despite the patient being bacteremic she does not appear to be septic at this time as her blood pressure is elevated and lactic acid is normal. Patient will be continued on her antihypertensive medications for now. We will continue to monitor the patient's blood pressure and titrate medications as needed. Qualifiers: Hypertension type: essential hypertension Qualified Code(s): I10 - Essential (primary) hypertension (8) Asthma Conclusion/Plan: The patient has a history of asthma and is on albuterol as needed, Atrovent as needed along with Flovent at home. While the patient is hospitalized we will place the patient on budesonide nebulizer twice daily along with duo nebs as needed. Currently the patient is on 2 L of oxygen as she was hypoxic on presentation. She is not wheezing on examination. We will repeat a chest x-ray to confirm that the patient does not have a pneumonia as the initial chest x-ray did not show evidence of pneumonia. Qualifiers: Asthma severity: unspecified severity Asthma persistence: unspecified Asthma complication type: unspecified Qualified Code(s): J45.909 - Unspecified asthma, uncomplicated (9) Hyperlipidemia Conclusion/Plan: The patient has a history of hyperlipidemia and is on Lipitor at home. Currently she appears to be stable and we will continue her home dose of Lipitor. Qualifiers: Hyperlipidemia type: unspecified Qualified Code(s): E78.5 - Hyperlipidemia, unspecified - Current Meds Current Meds: Current Medications Generic Name Dose Route Start Last Admin Trade Name Mtq PRN Reason Stop Dose Admin Amlodipine Besylate 2.5 mg 03/30/18 09:00 03/30/18 08:51 Norvasc PO 2.5 mg DAILY ZAY Administration Aspirin 81 mg 03/30/18 09:00 03/30/18 08:51 [facility] [place] Aspirin PO 81 mg DAILY ZAY Administration Atorvastatin Calcium 10 mg 03/29/18 21:00 03/29/18 20:39 Lipitor PO 10 mg QPM ZAY Administration Budesonide 0.5 mg 03/29/18 19:00 03/30/18 08:07 Pulmicort INH 0.5 mg RTBID ZAY Administration Cholecalciferol 400 unit 03/29/18 21:00 03/30/18 08:51 Vitamin D3 PO 400 unit BID ZAY Administration Donepezil HCl 10 mg 03/30/18 09:00 03/30/18 08:57 Aricept PO 10 mg DAILY ZAY Administration Enoxaparin Sodium 40 mg 03/30/18 09:00 03/30/18 08:57 Lovenox SUBQ 40 mg DAILY ZAY Administration Famotidine 20 mg 03/29/18 21:00 03/29/18 20:39 Pepcid PO 20 mg QPM ZAY Administration Potassium Chloride/Sodium Chloride 1,000 mls @ 100 mls/hr 03/29/18 11:00 03/30/18 12:24 Normal Saline 0.9% W/20 Meq Kcl IV 100 mls/hr .Q10H ZAY Administration Vancomycin HCl 1 gm/ Sodium 250 mls @ 167 mls/hr 03/30/18 05:00 03/30/18 06:00 Chloride IV Infused Q18H ZAY Infusion Protocol Ceftriaxone Sodium 1 gm/ 100 mls @ 200 mls/hr 03/29/18 16:00 03/30/18 16:35 Sodium Chloride IV Infused Q24H ZAY Infusion Ibuprofen 600 mg 03/29/18 10:44 03/29/18 18:55 Motrin PO 600 mg Q6HR PRN Administration Pain 1 to 4 Lisinopril 20 mg 03/29/18 21:00 03/30/18 08:51 Zestril PO 20 mg BID ZAY Administration Memantine 10 mg 03/30/18 09:00 03/30/18 08:51 Namenda PO 10 mg DAILY ZAY Administration Polyethylene Glycol 17 gm 03/30/18 09:00 03/30/18 08:51 Miralax PO 17 gm DAILY ZAY Administration Saccharomyces Boulardii 250 mg 03/29/18 17:00 03/30/18 16:06 Florastor PO 250 mg BIDWM ZAY Administration Sodium Chloride 10 ml 03/29/18 17:00 03/30/18 16:04 Normal Saline Flush 0.9% IVP 10 ml 0100,0900,1700 ZAY Administration Triamterene/HCTZ 2 cap 03/30/18 09:00 03/30/18 08:52 Dyazide PO 2 cap DAILY ZAY Administration - Lab Result Lab results reviewed: Yes Fish Bone Diagrams: 03/30/18 05:28 03/30/18 05:28 - Diagnostic Imaging Results Diagnostic Imaging Results: Final report reviewed - Additional Planning Condition/Complexity: Guarded My Orders: My Active Orders 03/29/18 19:00 Budesonide [Pulmicort] 0.5 mg INH RTBID 03/29/18 21:00 Atorvastatin [Lipitor] 10 mg PO QPM Cholecalciferol [Vitamin D3] 400 unit PO BID Famotidine [Pepcid] 20 mg PO QPM Lisinopril [Zestril] 20 mg PO BID 03/30/18 05:00 Vancomycin Inj [Vancomycin] 1 gm Sodium Chloride 0.9% [Normal Saline 0.9%] 250 ml IV Q18H 03/30/18 09:00 Aspirin Chewable [[facility] Is[facility]ro Aspirin] 81 mg PO DAILY Donepezil [Aricept] 10 mg PO DAILY Enoxaparin [Lovenox] 40 mg SUBQ DAILY Memantine [Namenda] 10 mg PO DAILY Polyethylene Glycol 3350 [Miralax] 17 gm PO DAILY Triamterene/Hdyrochlor 37.5/25 [Dyazide] 2 cap PO DAILY amLODIPine [Norvasc] 2.5 mg PO DAILY 03/30/18 14:15 CULTURE, BLOOD #1 [RM] Routine 03/30/18 16:02 Echo Transthoracic Complete [ECHO] Routine 03/30/18 16:10 CULTURE, BLOOD #2 [RM] Routine 03/31/18 05:00 CBC - COMP BLD CT W/AUTO DIFF [HEME] DAILYLAB COMPREHENSIVE METABOLIC PANEL [CHEM] DAILYLAB 03/31/18 16:30 VANCOMYCIN TROUGH [CHEM] Timed 04/01/18 05:00 CBC - COMP BLD CT W/AUTO DIFF [HEME] DAILYLAB COMPREHENSIVE METABOLIC PANEL [CHEM] DAILYLAB Plan Discussed with:: Patient Time Spent: 31-60 minutes Subjective - Subjective Patient Reports: Feeling Better, Resting Comfortably, Cough, Other (No fevers overnight.) Nursing Reports: No Complaints Objective Vital Signs: Vital Signs - 24 hr 03/29/18 03/30/18 03/30/18 20:42 00:00 06:45 Temperature 37.0 C 36.5 C Heart Rate Heart Rate [ 74 64 Brachial] Respiratory 16 18 Rate Blood Pressure 127/45 L 113/57 L [Right Brachial artery] O2 Saturation 96 95 95 03/30/18 03/30/18 03/30/18 08:00 15:54 16:54 Temperature 36.2 C L 37.1 C Heart Rate 75 Heart Rate [ 65 92 94 Brachial] Respiratory 20 24 Rate Blood Pressure 131/60 H 190/73 H 141/66 H [Right Brachial artery] O2 Saturation 100 96 Oxygen O2 Source Nasal cannula I&O (Last 24 Hrs): Intake and Output Totals x24h 03/28/18 03/29/18 03/30/18 23:59 23:59 23:59 Intake Total 2340 3510 Balance 2340 3510 General: Alert, Cooperative, No acute distress, Other (Oriented x2) HEENT: Atraumatic, PERRLA, EOMI, Other (Dry mucus membranes) Neck: Supple, No JVD, No thyromegaly, +2 carotid pulse wo bruit, No LAD Lymphatic: no adenopathy Neuro: Alert, Non Focal, CN 2-12 Grossly Intact Cardiovascular: Regular rate, Normal S1, Normal S2, No murmurs Respiratory: Chest non-tender, No respiratory distress, Breath sounds nml Abdomen: Normal bowel sounds, Soft, No tenderness, No hepatospenomegaly Extremities: No clubbing, No cyanosis, No edema, Normal pulses Skin: No rashes, No breakdown - Results Results: Laboratory Results WBC 6.8 x10^3/uL (4.8-10.8) 03/30/18 05:28 RBC 3.92 10^6/uL (4.20-5.40) L 03/30/18 05:28 Hgb 11.1 g/dL (12.0-16.0) L 03/30/18 05:28 Hct 33.9 % (37.0-47.0) L 03/30/18 05:28 MCV 86.3 fL (81.0-99.0) 03/30/18 05:28 MCH 28.4 pg (27.0-31.0) 03/30/18 05:28 MCHC 32.9 g/dL (32.0-36.0) 03/30/18 05:28 RDW 14.1 % (12.0-15.0) 03/30/18 05:28 Plt Count 119 10^3/uL (130-450) L 03/30/18 05:28 MPV 7.7 fL (7.9-10.8) L 03/30/18 05:28 Neut # (Auto) 5.2 10^3/uL (1.5-6.6) 03/30/18 05:28 Lymph # (Auto) 0.7 10^3/uL (1.5-3.5) L 03/30/18 05:28 Zavala # (Auto) 0.8 10^3/uL (0.0-1.0) 03/30/18 05:28 Eos # (Auto) 0.0 10^3/uL (0.0-0.7) 03/30/18 05:28 Baso # (Auto) 0.0 10^3/uL (0.0-0.1) 03/30/18 05:28 Absolute Nucleated RBC 0.00 x10^3/uL 03/30/18 05:28 Nucleated RBC % 0.0 /100WBC 03/30/18 05:28 Sodium 130 mmol/L (135-145) L 03/30/18 05:28 Potassium 3.1 mmol/L (3.5-5.0) L 03/30/18 05:28 Chloride 100 mmol/L (101-111) L 03/30/18 05:28 Carbon Dioxide 26 mmol/L (21-32) 03/30/18 05:28 Anion Gap 4.0 (6-13) L 03/30/18 05:28 BUN 33 mg/dL (6-20) H 03/30/18 05:28 Creatinine 0.8 mg/dL (0.4-1.0) 03/30/18 05:28 Estimated GFR (MDRD) 68 (>89) L 03/30/18 05:28 Glucose 120 mg/dL (70-100) H 03/30/18 05:28 Lactic Acid 1.5 mmol/L (0.5-2.2) 03/29/18 10:34 Calcium 8.0 mg/dL (8.5-10.3) L 03/30/18 05:28 Total Bilirubin 0.6 mg/dL (0.2-1.0) 03/30/18 05:28 AST 27 IU/L (10-42) 03/30/18 05:28 ALT 20 IU/L (10-60) 03/30/18 05:28 Alkaline Phosphatase 36 IU/L (42-121) L 03/30/18 05:28 Total Protein 5.8 g/dL (6.7-8.2) L 03/30/18 05:28 Albumin 2.6 g/dL (3.2-5.5) L 03/30/18 05:28 Globulin 3.2 g/dL (2.1-4.2) 03/30/18 05:28 Albumin/Globulin Ratio 0.8 (1.0-2.2) L 03/30/18 05:28 ABX Reporting Has patient been on IV antibiotics over the past 48 hours?: No Current Medications - Current Medications Current Medications: Active Medications Generic Name Dose Route Start Last Admin Trade Name Freq PRN Reason Stop Dose Admin Acetaminophen 650 mg 03/29/18 10:44 Tylenol PO Q4HR PRN Pain 1 to 4 Albuterol/Ipratropium 3 ml 03/29/18 10:44 Duoneb INH Q4HR PRN Wheezing Amlodipine Besylate 2.5 mg 03/30/18 09:00 03/30/18 08:51 Norvasc PO 2.5 mg DAILY ZAY Administration Aspirin 81 mg 03/30/18 09:00 03/30/18 08:51 [facility] [place] Aspirin PO 81 mg DAILY ZAY Administration Atorvastatin Calcium 10 mg 03/29/18 21:00 03/29/18 20:39 Lipitor PO 10 mg QPM ZAY Administration Budesonide 0.5 mg 03/29/18 19:00 03/30/18 08:07 Pulmicort INH 0.5 mg RTBID ZAY Administration Cholecalciferol 400 unit 03/29/18 21:00 03/30/18 08:51 Vitamin D3 PO 400 unit BID ZAY Administration Donepezil HCl 10 mg 03/30/18 09:00 03/30/18 08:57 Aricept PO 10 mg DAILY ZAY Administration Enoxaparin Sodium 40 mg 03/30/18 09:00 03/30/18 08:57 Lovenox SUBQ 40 mg DAILY ZAY Administration Famotidine 20 mg 03/29/18 21:00 03/29/18 20:39 Pepcid PO 20 mg QPM ZAY Administration Potassium Chloride/Sodium Chloride 1,000 mls @ 100 mls/hr 03/29/18 11:00 03/30/18 12:24 Normal Saline 0.9% W/20 Meq Kcl IV 100 mls/hr .Q10H ZAY Administration Vancomycin HCl 1 gm/ Sodium 250 mls @ 167 mls/hr 03/30/18 05:00 03/30/18 06:00 Chloride IV Infused Q18H ZAY Infusion Protocol Ceftriaxone Sodium 1 gm/ 100 mls @ 200 mls/hr 03/29/18 16:00 03/30/18 16:35 Sodium Chloride IV Infused Q24H ZAY Infusion Ibuprofen 600 mg 03/29/18 10:44 03/29/18 18:55 Motrin PO 600 mg Q6HR PRN Administration Pain 1 to 4 Lisinopril 20 mg 03/29/18 21:00 03/30/18 08:51 Zestril PO 20 mg BID ZAY Administration Memantine 10 mg 03/30/18 09:00 03/30/18 08:51 Namenda PO 10 mg DAILY ZAY Administration Ondansetron HCl 4 mg 03/29/18 10:44 Zofran Inj IVP Q6HR PRN Nausea / Vomiting Oxycodone HCl 5 mg 03/29/18 10:44 Roxicodone PO Q4HR PRN Pain 5 to 7 Polyethylene Glycol 17 gm 03/30/18 09:00 03/30/18 08:51 Miralax PO 17 gm DAILY ZAY Administration Prochlorperazine Edisylate 10 mg 03/29/18 10:44 Compazine Inj IVP Q6HR PRN Nausea / Vomiting Promethazine HCl 25 mg 03/29/18 10:44 Phenergan Inj IM Q6HR PRN Nausea / Vomiting Saccharomyces Boulardii 250 mg 03/29/18 17:00 03/30/18 16:06 Florastor PO 250 mg BIDWM ZAY Administration Sodium Chloride 10 ml 03/29/18 10:44 Normal Saline Flush 0.9% IVP PRN PRN NEEDED PER PROVIDER ORDERS Sodium Chloride 10 ml 03/29/18 17:00 03/30/18 16:04 Normal Saline Flush 0.9% IVP 10 ml 0100,0900,1700 ZAY Administration Triamterene/HCTZ 2 cap 03/30/18 09:00 03/30/18 08:52 Dyazide PO 2 cap DAILY ZAY Administration Aspirin 81 mg PO DAILY 03/28/18 Atorvastatin [Lipitor] 10 mg PO QPM 03/28/18 Donepezil [Aricept] 10 mg PO QPM 03/28/18 Ipratropium [Atrovent] 1 puffs INH BID 03/28/18 Memantine HCl 10 mg PO DAILY 03/28/18 Triamterene/Hydrochlorothiazid [Triamterene-Hctz 75-50 mg Tab] 1 tab PO DAILY 03/28/18 Albuterol Sulf [Ventolin Hfa Inhaler] 2 puffs INH QID PRN 03/29/18 Calcium Carbonate/Vitamin D3 [Calcium 500-Vit D3 200 Tablet] 1 tab PO TID 03/29/18 Cholecalciferol (Vitamin D3) [Vitamin D3] 400 unit PO BID 03/29/18 Fluticasone 110 Mcg [Flovent] 2 puffs INH BID 03/29/18 Lisinopril 20 mg PO BID 03/29/18 amLODIPine [Norvasc] 2.5 mg PO DAILY 03/29/18
[2018-03-30] MEDS: IPRATROPIUM/ALBUTEROL 3 ML NEB INH PRN (20:04)
[2018-03-30] MEDS: FAMOTIDINE 20 MG TABLET PO SCH (21:23)
[2018-03-30] MEDS: ATORVASTATIN 10 MG TABLET PO SCH (21:23)
[2018-03-30] MEDS ORDERED: FUROSEMIDE 20 MG/2 ML VIAL IVP SCH (23:21)
[2018-03-31] MEDS: SODIUM CHLORIDE FLUSH 0.9% 10 ML SYRINGE IVP SCH ×3 (00:42→19:10)
[2018-03-31] MEDS: NS W/20 MEQ KCL 1,000 ML IV SCH ×3 (02:12→18:55)
[2018-03-31 06:32] LABS: BASOPHILS % (AUTO) 0.1 %; EOSINOPHILS % (AUTO) 0.1 %; HGB - HEMOGLOBIN 10.8 g/dL (12.0-16.0); LYMPHOCYTES # (AUTO) 0.7 10^3/uL (1.5-3.5); LYMPHOCYTES % (AUTO) 9.5 %; MEAN CORPUSCULAR HEMOGLOBIN 28.1 pg (27.0-31.0); MEAN CORPUSCULAR HGB CONC 32.6 g/dL (32.0-36.0); MEAN CORPUSCULAR VOLUME 86.2 fL (81.0-99.0); MEAN PLATELET VOLUME 8.5 fL (7.9-10.8); NEUTROPHILS # (AUTO) 5.9 10^3/uL (1.5-6.6); NEUTROPHILS % (AUTO) 77.3 %; PLT - PLATELET COUNT 121 10^3/uL (130-450); RED BLOOD COUNT 3.84 10^6/uL (4.20-5.40); RED CELL DISTRIBUTION WIDTH 14.1 % (12.0-15.0); WHITE BLOOD COUNT 7.6 x10^3/uL (4.8-10.8)
[2018-03-31 06:44] LABS: ALBUMIN 2.6 g/dL (3.2-5.5); ALBUMIN/GLOBULIN RATIO 0.8 (1.0-2.2); BILIRUBIN,TOTAL 0.8 mg/dL (0.2-1.0); CALCIUM 8.1 mg/dL (8.5-10.3); CREATININE 0.8 mg/dL (0.4-1.0); TOTAL PROTEIN 5.9 g/dL (6.7-8.2)
[2018-03-31] MEDS: BUDESONIDE 0.5 MG/2 ML NEB INH SCH ×2 (07:45→21:13)
[2018-03-31] MEDS: IPRATROPIUM/ALBUTEROL 3 ML NEB INH PRN ×2 (07:45→21:13)
[2018-03-31] MEDS ORDERED: IOVERSOL 320 100 ML VIAL IVP ONE ×3 (09:00→13:44)
--- NOTE | 2018-03-31 09:27 | XRAY Report ---
Reason: Bacteremia Procedure Date: 03/31/2018 Accession Number: [id number] / [id number] Procedure: XR - Chest 1 View X-Ray CPT Code: 45504 FULL RESULT: EXAM: CHEST RADIOGRAPHY EXAM DATE: 03/31/2018 09:03 AM. CLINICAL HISTORY: Bacteremia. COMPARISON: CHEST 1 VIEW 03/29/2018 4:37 PM. TECHNIQUE: 1 view. FINDINGS: Evaluation of lung bases is precluded by overlying pannus. Lungs/Pleura: There are questionable air bronchograms in the left infrahilar region. No pleural effusion. No pneumothorax. Lung volumes appear high. Mediastinum: Within exam limitations, the cardiomediastinal contour is normal. Other: None. IMPRESSION: Question interval development of airspace disease in the left infrahilar region, possible pneumonia. Otherwise, stable appearance of the limited radiograph with impression of high lung volumes. RAD[facility]
[2018-03-31] MEDS: MEMANTINE 5 MG TABLET PO SCH (10:13)
[2018-03-31] MEDS: amLODIPine 5 MG TABLET PO SCH (10:14)
[2018-03-31] MEDS: SACCHAROMYCES BOULARDII 250 MG CAPSULE PO SCH ×2 (10:14→18:18)
[2018-03-31] MEDS: DONEPEZIL 5 MG TABLET PO SCH (10:14)
[2018-03-31] MEDS: ASPIRIN CHEW 81 MG TABLET PO SCH (10:15)
[2018-03-31] MEDS: LISINOPRIL 20 MG TABLET PO SCH ×2 (10:15→20:52)
[2018-03-31] MEDS: CHOLECALCIFEROL 400 UNIT TABLET PO SCH ×2 (10:15→20:52)
[2018-03-31] MEDS: ENOXAPARIN 40 MG/0.4 ML SYRINGE SUBQ SCH (10:16)
[2018-03-31] MEDS: TRIAMT/HCTZ 37.5 MG/25 MG CAPSULE PO SCH (10:16)
[2018-03-31] MEDS: POTASSIUM CHLOR 10 MEQ/100 ML 10 MEQ/100 ML BAG IV SCH ×2 (10:17→19:11)
[2018-03-31] MEDS: POLYETHYLENE GLYCOL 3350 17 GM PACKET PO SCH (10:30)
[2018-03-31] MEDS ORDERED: POTASSIUM CHLORIDE INJ 40 MEQ in SODIUM CHLORIDE 0.9% 500 ML IV ONE (11:30)
[2018-03-31] MEDS ORDERED: IOVERSOL 320 50 ML VIAL ONE (11:32)
[2018-03-31] MEDS ORDERED: IOVERSOL 320 50 ML VIAL PO ONE (13:44)
[2018-03-31 14:28] LABS: BILIRUBIN,URINE NEGATIVE (NEGATIVE); GLUCOSE, URINE (UA) NEGATIVE (NEGATIVE); KETONES,URINE (UA) NEGATIVE (NEGATIVE); LEUKOCYTE ESTERASE, URINE NEGATIVE (NEGATIVE); NITRITE,URINE NEGATIVE (NEGATIVE); OCCULT BLOOD,URINE TRACE-LYSE (NEGATIVE); PROTEIN,URINE NEGATIVE (NEGATIVE); UROBILINOGEN,URINE 0.2 (NORMAL) E.U./dL (NORMAL)
[2018-03-31 14:33] LABS: CLARITY,URINE CLEAR (CLEAR)
--- NOTE | 2018-03-31 14:41 | CT Report ---
Reason: Staph aureus persistent bacteremia - no source Procedure Date: 03/31/2018 Accession Number: [id number] / [id number] Procedure: CT - Abdomen/Pelvis W/ CPT Code: FULL RESULT: EXAM: CT ABDOMEN AND PELVIS EXAM DATE: 03/31/2018 01:42 PM. CLINICAL HISTORY: Staph aureus persistent bacteremia - no source. COMPARISONS: None. TECHNIQUE: Routine helical CT imaging was performed through the abdomen and pelvis. IV contrast: ISOVUE 300 100mL. Enteric contrast: No. Reconstructions: Coronal and sagittal. In accordance with CT protocol optimization, one or more of the following dose reduction techniques were utilized for this exam: automated exposure control, adjustment of mA and/or KV based on patient size, or use of iterative reconstructive technique. FINDINGS: Lung Bases: Trace pleural effusions with minimal right basilar consolidation. There is a right subpulmonic loculated effusion anteriorly. Liver: Normal. No masses. Gallbladder/Bile Ducts: Unremarkable. Spleen: Normal. Pancreas: Normal. Adrenal Glands: Normal. Kidneys: Normal. No masses or hydronephrosis. Peritoneal Cavity/Bowel: There is a periumbilical hernia which contains a portion of colon, approximately 2 cm neck. Diverticulosis without diverticulitis. No free fluid, free air or adenopathy. No masses or acute inflammatory process. Pelvic Organs: Normal. The bladder and visualized pelvic organs are within normal limits. Vasculature: No aneurysms or other significant abnormality. Bones: No significant abnormality. Other: None. IMPRESSION: Loculated predominantly right subpulmonic effusion with scant consolidation. Periumbilical hernia containing a portion of colon, approximately 2 cm neck. RADIA
--- NOTE | 2018-03-31 16:16 | PROVIDER PROGRESS NOTE ---
Assessment/Plan - Problem List (1) Bacteremia due to Gram-positive bacteria Assessment/Plan: Patient presented with fever and leukocytosis as well as decreased level of consciousness yesterday. Patient was thought to have urinary tract infection and responded well to IV antibiotics and fluids and was sent back to assisted living facility. At that time patient underwent blood culture which returned back positive and patient was brought back to the emergency department. The patient continued to have fevers. Patient's blood cultures are growing staph aureus with sensitives to follow. The patient's urine culture growing polymicrobial and she does not have any skin soft tissue infections that are obvious. The patients echo does not show endocarditis. Patient has persistently positive blood cultures from 03/28, 03/29 and 03/30 Cultures from 03/28 and 03/29 are growing Staph Aureus which is resistant to Penicillin Cultures from 03/30 are showing gram positive cocci different from Staph Aureus Only possible source found so far is loculated predominantly right subpulmonic effusion with consolidation We will get X rays of bilateral knees as patient had knee pain prior to hospitalization and had left knee replacement Plan: Change abx to IV Levaquin and stop vanco and ceftriaxone Repeat blood cultures daily Patient will need at least 14 days of antibiotics from date of negative blood culture. (2) Pneumonia Conclusion/Plan: Patient has been having worsening cough and hypoxia over the last 2 days Repeat CXR today showed possible pneumonia and CT abd showed a right subpulmonic loculated effusion which is likely a parapneumonic effusion Patient on 1L of O2 Possible source of bacteremia Plan: Repeat Blood cx IV levaquin Supplemental O2 Thoracentesis with pleural fluid cx, cell count and diff, cytology (3) UTI (urinary tract infection) Conclusion/Plan: The patient was found to have a positive urine analysis on presentation to the emergency department yesterday and was given IV ceftriaxone and discharged back to her assisted living facility with Keflex orally. It appears that the culture from yesterday is growing less than 10,000 polymicrobial growth which likely suggests a contaminant in her urine culture. Given that the patient did have presentation with fever and does have bacteremia we will treat her for possible urinary tract infection with Levaquin. Repeat UA is negative. Qualifiers: Urinary tract infection type: acute cystitis Hematuria presence: without hematuria Qualified Code(s): N30.00 - Acute cystitis without hematuria (4) AASHISH (acute kidney injury) Conclusion/Plan: Resolved with IVFs (5) Hypokalemia Conclusion/Plan: Worse today down to 3.0 Replace with IV and PO potassium Monitor (6) Hyponatremia Conclusion/Plan: Patient's sodium on presentation is 132 down to 130 today. Patient has hypovolemic hyponatremia. Patient will continue on IV fluids and we will continue to monitor the patient's sodium. Could also be secondary to pneumonia and parapneumonic effusion which could be causing SIADH. (7) Dementia Conclusion/Plan: The patient has a history of dementia and is on Aricept and memantine at home. We will continue these medications while she is hospitalized. We will need to watch out for delirium and sundowning. The patient will need to be frequently oriented. She has very poor memory. Qualifiers: Dementia type: unspecified type Dementia behavioral disturbance: without behavioral disturbance Qualified Code(s): F03.90 - Unspecified dementia without behavioral disturbance (8) Hypertension Conclusion/Plan: The patient has a history of hypertension and patient's blood pressure is elevated on presentation. Despite the patient being bacteremic she does not appear to be septic at this time as her blood pressure is elevated and lactic acid is normal. Patient will be continued on her antihypertensive medications for now. We will continue to monitor the patient's blood pressure and titrate medications as needed. Qualifiers: Hypertension type: essential hypertension Qualified Code(s): I10 - Essential (primary) hypertension (9) Asthma Conclusion/Plan: The patient has a history of asthma and is on albuterol as needed, Atrovent as needed along with Flovent at home. While the patient is hospitalized we will place the patient on budesonide nebulizer twice daily along with duo nebs as needed. X ray showed Pneumonia will manage as above. Qualifiers: Asthma severity: unspecified severity Asthma persistence: unspecified Asthma complication type: unspecified Qualified Code(s): J45.909 - Unspecified asthma, uncomplicated (10) Hyperlipidemia Conclusion/Plan: The patient has a history of hyperlipidemia and is on Lipitor at home. Currently she appears to be stable and we will continue her home dose of Lipit or. Qualifiers: Hyperlipidemia type: unspecified Qualified Code(s): E78.5 - Hyperlipidemia, unspecified - Current Meds Current Meds: Current Medications Generic Name Dose Route Start Last Admin Trade Name Freq PRN Reason Stop Dose Admin Albuterol/Ipratropium 3 ml 03/29/18 10:44 03/31/18 07:45 Duoneb INH 3 ml Q4HR PRN Administration Wheezing Amlodipine Besylate 2.5 mg 03/30/18 09:00 03/31/18 10:14 Norvasc PO 2.5 mg DAILY ZAY Administration Aspirin 81 mg 03/30/18 09:00 03/31/18 10:15 [facility] Is[place]ro Aspirin PO 81 mg DAILY ZAY Administration Atorvastatin Calcium 10 mg 03/29/18 21:00 03/30/18 21:23 Lipitor PO 10 mg QPM ZAY Administration Budesonide 0.5 mg 03/29/18 19:00 03/31/18 07:45 Pulmicort INH 0.5 mg RTBID ZAY Administration Cholecalciferol 400 unit 03/29/18 21:00 03/31/18 10:15 Vitamin D3 PO 400 unit BID ZAY Administration Donepezil HCl 10 mg 03/30/18 09:00 03/31/18 10:14 Aricept PO 10 mg DAILY ZAY Administration Enoxaparin Sodium 40 mg 03/30/18 09:00 03/31/18 10:16 Lovenox SUBQ 40 mg DAILY ZAY Administration Famotidine 20 mg 03/29/18 21:00 03/30/18 21:23 Pepcid PO 20 mg QPM ZAY Administration Vancomycin HCl 1 gm/ Sodium 250 mls @ 167 mls/hr 03/30/18 05:00 03/31/18 00:40 Chloride IV Infused Q18H ZAY Infusion Protocol Ceftriaxone Sodium 1 gm/ 100 mls @ 200 mls/hr 03/29/18 16:00 03/30/18 16:35 Sodium Chloride IV Infused Q24H ZAY Infusion Potassium Chloride/Sodium Chloride 1,000 mls @ 75 mls/hr 03/31/18 08:06 03/31/18 10:16 Normal Saline 0.9% W/20 Meq Kcl IV 75 mls/hr .[id number] ZAY Administration Ibuprofen 600 mg 03/29/18 10:44 03/29/18 18:55 Motrin PO 600 mg Q6HR PRN Administration Pain 1 to 4 Lisinopril 20 mg 03/29/18 21:00 03/31/18 10:15 Zestril PO 20 mg BID ZAY Administration Memantine 10 mg 03/30/18 09:00 03/31/18 10:13 Namenda PO 10 mg DAILY ZAY Administration Polyethylene Glycol 17 gm 03/30/18 09:00 03/31/18 10:30 Miralax PO 17 gm DAILY ZAY Administration Saccharomyces Shefalidii 250 mg 03/29/18 17:00 03/31/18 10:14 Florastor PO 250 mg BIDWM ZAY Administration Sodium Chloride 10 ml 03/29/18 17:00 03/31/18 10:17 Normal Saline Flush 0.9% IVP Not Given 0100,0900,1700 ZAY Triamterene/HCTZ 2 cap 03/30/18 09:00 03/31/18 10:16 Dyazide PO 2 cap DAILY ZAY Administration - Lab Result Lab results reviewed: Yes Fish Bone Diagrams: 03/31/18 06:05 03/31/18 06:05 - Diagnostic Imaging Results Diagnostic Imaging Results: Final report reviewed Diagnostic Imaging Results Comments: EXAM: CHEST RADIOGRAPHY EXAM DATE: 03/31/2018 09:03 AM. CLINICAL HISTORY: Bacteremia. COMPARISON: CHEST 1 VIEW 03/29/2018 4:37 PM. TECHNIQUE: 1 view. FINDINGS: Evaluation of lung bases is precluded by overlying pannus. Lungs/Pleura: There are questionable air bronchograms in the left infrahilar region. No pleural effusion. No pneumothorax. Lung volumes appear high. Mediastinum: Within exam limitations, the cardiomediastinal contour is normal. Other: None. IMPRESSION: Question interval development of airspace disease in the left infrahilar region, possible pneumonia. Otherwise, stable appearance of the limited radiograph with impression of high lung volumes. EXAM: [id number] CT/ABPEW ([id number]) Reason: Staph aureus persistent bacteremia - no source Procedure Date: 03/31/2018 Accession Number: [id number] / [id number] Procedure: CT - Abdomen/Pelvis W/ CPT Code: FULL RESULT: EXAM: CT ABDOMEN AND PELVIS EXAM DATE: 03/31/2018 01:42 PM. CLINICAL HISTORY: Staph aureus persistent bacteremia - no source. COMPARISONS: None. TECHNIQUE: Routine helical CT imaging was performed through the abdomen and pelvis. IV contrast: ISOVUE 300 100mL. Enteric contrast: No. Reconstructions: Coronal and sagittal. In accordance with CT protocol optimization, one or more of the following dose reduction techniques were utilized for this exam: automated exposure control, adjustment of mA and/or KV based on patient size, or use of iterative reconstructive technique. FINDINGS: Lung Bases: Trace pleural effusions with minimal right basilar consolidation. There is a right subpulmonic loculated effusion anteriorly. Liver: Normal. No masses. Gallbladder/Bile Ducts: Unremarkable. Spleen: Normal. Pancreas: Normal. Adrenal Glands: Normal. Kidneys: Normal. No masses or hydronephrosis. Peritoneal Cavity/Bowel: There is a periumbilical hernia which contains a portion of colon, approximately 2 cm neck. Diverticulosis without diverticulitis. No free fluid, free air or adenopathy. No masses or acute inflammatory process. Pelvic Organs: Normal. The bladder and visualized pelvic organs are within normal limits. Vasculature: No aneurysms or other significant abnormality. Bones: No significant abnormality. Other: None. IMPRESSION: Loculated predominantly right subpulmonic effusion with scant consolidation. Periumbilical hernia containing a portion of colon, approximately 2 cm neck. - Additional Planning Condition/Complexity: Guarded My Orders: My Active Orders 03/30/18 16:02 Echo Transthoracic Complete [ECHO] Routine 03/30/18 16:10 CULTURE, BLOOD #2 [RM] Routine 03/31/18 CULTURE, BLOOD #1 [RM] Stat CULTURE, BLOOD #2 [RM] Stat 03/31/18 08:06 Ns W/20 Meq KCl [Normal Saline 0.9% W/20 Meq KCl] 1,000 ml IV 75 mls/hr 03/31/18 15:03 Knee 2 View BILAT [XR] Stat 03/31/18 16:30 VANCOMYCIN TROUGH [CHEM] Timed 04/01/18 CELL COUNT, BF [BF] Stat CUL, ANAEROBIC (QUEST) [REFLAB] Stat 04/01/18 05:00 CBC - COMP BLD CT W/AUTO DIFF [HEME] DAILYLAB COMPREHENSIVE METABOLIC PANEL [CHEM] DAILYLAB 04/01/18 09:00 Thoracentesis Puncture [US] Stat CULTURE, BLOOD #2 [RM] DAILY 04/02/18 09:00 CULTURE, BLOOD #2 [RM] DAILY 04/03/18 09:00 CULTURE, BLOOD #2 [RM] DAILY 04/04/18 09:00 CULTURE, BLOOD #2 [RM] DAILY Plan Discussed with:: Patient, Family Time Spent: 31-60 minutes Subjective - Subjective Patient Reports: Feeling Better, Resting Comfortably, Shortness of Breath (Mild), Other (Poor memory. She denies any fever, chest pain or other pain.) Nursing Reports: No Complaints Objective Vital Signs: Vital Signs - 24 hr 03/30/18 03/30/18 03/30/18 15:54 16:54 20:04 Temperature 37.1 C Heart Rate 88 Heart Rate [ 92 94 Brachial] Respiratory 24 20 Rate Blood Pressure [Left Brachial artery] Blood Pressure 190/73 H 141/66 H [Right Brachial artery] O2 Saturation 96 03/31/18 03/31/18 03/31/18 00:00 07:45 11:11 Temperature 37.6 C H 37.3 C Heart Rate 66 Heart Rate [ 77 70 Brachial] Respiratory 22 16 18 Rate Blood Pressure 117/68 [Left Brachial artery] Blood Pressure 145/54 H [Right Brachial artery] O2 Saturation 98 98 03/31/18 15:31 Temperature 37.1 C Heart Rate Heart Rate [ 68 Brachial] Respiratory 16 Rate Blood Pressure 125/53 L [Left Brachial artery] Blood Pressure [Right Brachial artery] O2 Saturation 98 Oxygen O2 Source Nasal cannula I&O (Last 24 Hrs): Intake and Output Totals x24h 03/29/18 03/30/18 03/31/18 23:59 23:59 23:59 Intake Total 2340 4461.667 1323.333 Output Total 1625 Balance 2340 4461.667 -301.667 General: Alert, Cooperative, Mild distress (Short of breath), Other (Oriented x 2) HEENT: Atraumatic, PERRLA, EOMI, Other (Dry mucus membranes) Neck: Supple, No JVD, No thyromegaly, +2 carotid pulse wo bruit, No LAD Lymphatic: no adenopathy Neuro: Alert, Non Focal, CN 2-12 Grossly Intact, Other (Oriented x2) Cardiovascular: Regular rate, Normal S1, Normal S2, No murmurs Respiratory: Chest non-tender, Rhonchi (Right lower lung) Abdomen: Normal bowel sounds, Soft, No tenderness, No hepatospenomegaly, No masses Extremities: No clubbing, No cyanosis, No edema, Normal pulses Skin: No rashes, No breakdown - Results Results: Laboratory Results WBC 7.6 x10^3/uL (4.8-10.8) 03/31/18 06:05 RBC 3.84 10^6/uL (4.20-5.40) L 03/31/18 06:05 Hgb 10.8 g/dL (12.0-16.0) L 03/31/18 06:05 Hct 33.1 % (37.0-47.0) L 03/31/18 06:05 MCV 86.2 fL (81.0-99.0) 03/31/18 06:05 MCH 28.1 pg (27.0-31.0) 03/31/18 06:05 MCHC 32.6 g/dL (32.0-36.0) 03/31/18 06:05 RDW 14.1 % (12.0-15.0) 03/31/18 06:05 Plt Count 121 10^3/uL (130-450) L 03/31/18 06:05 MPV 8.5 fL (7.9-10.8) 03/31/18 06:05 Neut # (Auto) 5.9 10^3/uL (1.5-6.6) 03/31/18 06:05 Lymph # (Auto) 0.7 10^3/uL (1.5-3.5) L 03/31/18 06:05 [place] # (Auto) 1.0 10^3/uL (0.0-1.0) 03/31/18 06:05 Eos # (Auto) 0.0 10^3/uL (0.0-0.7) 03/31/18 06:05 Baso # (Auto) 0.0 10^3/uL (0.0-0.1) 03/31/18 06:05 Absolute Nucleated RBC 0.00 x10^3/uL 03/31/18 06:05 Nucleated RBC % 0.0 /100WBC 03/31/18 06:05 Sodium 130 mmol/L (135-145) L 03/31/18 06:05 Potassium 3.0 mmol/L (3.5-5.0) L 03/31/18 06:05 Chloride 97 mmol/L (101-111) L 03/31/18 06:05 Carbon Dioxide 27 mmol/L (21-32) 03/31/18 06:05 Anion Gap 6.0 (6-13) 03/31/18 06:05 BUN 24 mg/dL (6-20) H 03/31/18 06:05 Creatinine 0.8 mg/dL (0.4-1.0) 03/31/18 06:05 Estimated GFR (MDRD) 68 (>89) L 03/31/18 06:05 Glucose 131 mg/dL (70-100) H 03/31/18 06:05 Lactic Acid 1.5 mmol/L (0.5-2.2) 03/29/18 10:34 Calcium 8.1 mg/dL (8.5-10.3) L 03/31/18 06:05 Total Bilirubin 0.8 mg/dL (0.2-1.0) 03/31/18 06:05 AST 32 IU/L (10-42) 03/31/18 06:05 ALT 29 IU/L (10-60) 03/31/18 06:05 Alkaline Phosphatase 55 IU/L (42-121) 03/31/18 06:05 Total Protein 5.9 g/dL (6.7-8.2) L 03/31/18 06:05 Albumin 2.6 g/dL (3.2-5.5) L 03/31/18 06:05 Globulin 3.3 g/dL (2.1-4.2) 03/31/18 06:05 Albumin/Globulin Ratio 0.8 (1.0-2.2) L 03/31/18 06:05 Urine Color YELLOW 03/31/18 10:41 Urine Clarity CLEAR (CLEAR) 03/31/18 10:41 Urine pH 6.0 PH (5.0-7.5) 03/31/18 10:41 Ur Specific [place] 1.020 (1.002-1.030) 03/31/18 10:41 Urine Protein NEGATIVE mg/dL (NEGATIVE) 03/31/18 10:41 Urine Glucose (UA) NEGATIVE mg/dL (NEGATIVE) 03/31/18 10:41 Urine Ketones NEGATIVE mg/dL (NEGATIVE) 03/31/18 10:41 Urine Occult Blood TRACE-LYSE (NEGATIVE) 03/31/18 10:41 Urine Nitrite NEGATIVE (NEGATIVE) 03/31/18 10:41 Urine Bilirubin NEGATIVE (NEGATIVE) 03/31/18 10:41 Urine Urobilinogen 0.2 (NORMAL) E.U./dL (NORMAL) 03/31/18 10:41 Ur Leukocyte Esterase NEGATIVE (NEGATIVE) 03/31/18 10:41 Ur Microscopic Review NOT INDICATED 03/31/18 10:41 Urine Culture Comments NOT INDICATED 03/31/18 10:41 ABX Reporting Has patient been on IV antibiotics over the past 48 hours?: Yes Current Medications - Current Medications Current Medications: Laboratory Results WBC 7.6 x10^3/uL (4.8-10.8) 03/31/18 06:05 RBC 3.84 10^6/uL (4.20-5.40) L 03/31/18 06:05 Hgb 10.8 g/dL (12.0-16.0) L 03/31/18 06:05 Hct 33.1 % (37.0-47.0) L 03/31/18 06:05 MCV 86.2 fL (81.0-99.0) 03/31/18 06:05 MCH 28.1 pg (27.0-31.0) 03/31/18 06:05 MCHC 32.6 g/dL (32.0-36.0) 03/31/18 06:05 RDW 14.1 % (12.0-15.0) 03/31/18 06:05 Plt Count 121 10^3/uL (130-450) L 03/31/18 06:05 MPV 8.5 fL (7.9-10.8) 03/31/18 06:05 Neut # (Auto) 5.9 10^3/uL (1.5-6.6) 03/31/18 06:05 Lymph # (Auto) 0.7 10^3/uL (1.5-3.5) L 03/31/18 06:05 [place] # (Auto) 1.0 10^3/uL (0.0-1.0) 03/31/18 06:05 Eos # (Auto) 0.0 10^3/uL (0.0-0.7) 03/31/18 06:05 Baso # (Auto) 0.0 10^3/uL (0.0-0.1) 03/31/18 06:05 Absolute Nucleated RBC 0.00 x10^3/uL 03/31/18 06:05 Nucleated RBC % 0.0 /100WBC 03/31/18 06:05 Sodium 130 mmol/L (135-145) L 03/31/18 06:05 Potassium 3.0 mmol/L (3.5-5.0) L 03/31/18 06:05 Chloride 97 mmol/L (101-111) L 03/31/18 06:05 Carbon Dioxide 27 mmol/L (21-32) 03/31/18 06:05 Anion Gap 6.0 (6-13) 03/31/18 06:05 BUN 24 mg/dL (6-20) H 03/31/18 06:05 Creatinine 0.8 mg/dL (0.4-1.0) 03/31/18 06:05 Estimated GFR (MDRD) 68 (>89) L 03/31/18 06:05 Glucose 131 mg/dL (70-100) H 03/31/18 06:05 Lactic Acid 1.5 mmol/L (0.5-2.2) 03/29/18 10:34 Calcium 8.1 mg/dL (8.5-10.3) L 03/31/18 06:05 Total Bilirubin 0.8 mg/dL (0.2-1.0) 03/31/18 06:05 AST 32 IU/L (10-42) 03/31/18 06:05 ALT 29 IU/L (10-60) 03/31/18 06:05 Alkaline Phosphatase 55 IU/L (42-121) 03/31/18 06:05 Total Protein 5.9 g/dL (6.7-8.2) L 03/31/18 06:05 Albumin 2.6 g/dL (3.2-5.5) L 03/31/18 06:05 Globulin 3.3 g/dL (2.1-4.2) 03/31/18 06:05 Albumin/Globulin Ratio 0.8 (1.0-2.2) L 03/31/18 06:05 Urine Color YELLOW 03/31/18 10:41 Urine Clarity CLEAR (CLEAR) 03/31/18 10:41 Urine pH 6.0 PH (5.0-7.5) 03/31/18 10:41 Ur Specific [place] 1.020 (1.002-1.030) 03/31/18 10:41 Urine Protein NEGATIVE mg/dL (NEGATIVE) 03/31/18 10:41 Urine Glucose (UA) NEGATIVE mg/dL (NEGATIVE) 03/31/18 10:41 Urine Ketones NEGATIVE mg/dL (NEGATIVE) 03/31/18 10:41 Urine Occult Blood TRACE-LYSE (NEGATIVE) 03/31/18 10:41 Urine Nitrite NEGATIVE (NEGATIVE) 03/31/18 10:41 Urine Bilirubin NEGATIVE (NEGATIVE) 03/31/18 10:41 Urine Urobilinogen 0.2 (NORMAL) E.U./dL (NORMAL) 03/31/18 10:41 Ur Leukocyte Esterase NEGATIVE (NEGATIVE) 03/31/18 10:41 Ur Microscopic Review NOT INDICATED 03/31/18 10:41 Urine Culture Comments NOT INDICATED 03/31/18 10:41
--- NOTE | 2018-03-31 16:22 | XRAY Report ---
Reason: Bacteremia, knee pain concern for knee effusion Procedure Date: 03/31/2018 Accession Number: [id number] / [id number] Procedure: XR - Knee 2 View BILAT CPT Code: FULL RESULT: EXAMS: 1. Right Knee Radiography 2. Left Knee Radiography EXAM DATE:03/31/2018 03:45 PM. CLINICAL HISTORY:Bacteremia, knee pain concern for knee effusion. COMPARISON: None. TECHNIQUE: 2 views each. FINDINGS: Right Knee: Bones: Osteopenia. No definite fracture or other bone lesion. Joints: 3 compartment joint space narrowing worst in the medial compartment with sclerosis and marginal osteophytosis. No definite effusion. Chondrocalcinosis, compatible with pseudogout. Soft Tissues: Vascular calcifications. Soft tissue calcifications adjacent to the lateral epicondyle. Otherwise unremarkable. Left Knee: Bones: Osteopenia. No definite fracture or other bone lesion. Joints: Medial hemiarthroplasty in anatomic alignment. No abnormal lucency associated with the prosthesis. Joint space narrowing elsewhere with marginal osteophytes and chondrocalcinosis. No definite effusion. Soft Tissues: Vascular calcifications. IMPRESSION: 1. Postoperative changes on the left. 2. Marked degenerative changes bilaterally. 3. Calcific periarthritis on the right. RADIA
[2018-03-31] MEDS ORDERED: POTASSIUM CHLOR 10 MEQ/100 ML 10 MEQ/100 ML BAG IV SCH (18:00)
[2018-03-31] MEDS: levoFLOXacin 750 MG/150 ML 750 MG/150 ML BAG IV SCH (20:52)
[2018-03-31] MEDS: FAMOTIDINE 20 MG TABLET PO SCH (20:52)
[2018-03-31] MEDS: ATORVASTATIN 10 MG TABLET PO SCH (20:52)
[2018-03-31] MEDS: SODIUM CHLORIDE FLUSH 0.9% 10 ML SYRINGE IVP PRN (21:00)
[2018-04-01] MEDS: SODIUM CHLORIDE FLUSH 0.9% 10 ML SYRINGE IVP SCH ×3 (01:23→18:11)
[2018-04-01 05:45] LABS: BASOPHILS % (AUTO) 0.2 %; EOSINOPHILS % (AUTO) 0.5 %; LYMPHOCYTES # (AUTO) 1.2 10^3/uL (1.5-3.5); LYMPHOCYTES % (AUTO) 13.1 %; MEAN CORPUSCULAR HEMOGLOBIN 28.1 pg (27.0-31.0); MEAN CORPUSCULAR HGB CONC 32.7 g/dL (32.0-36.0); MEAN CORPUSCULAR VOLUME 85.7 fL (81.0-99.0); MONOCYTES # (AUTO) 1.3 10^3/uL (0.0-1.0); MONOCYTES % (AUTO) 15.1 %; NEUTROPHILS # (AUTO) 6.3 10^3/uL (1.5-6.6); NEUTROPHILS % (AUTO) 71.1 %; PLT - PLATELET COUNT 131 10^3/uL (130-450); RED BLOOD COUNT 3.57 10^6/uL (4.20-5.40); RED CELL DISTRIBUTION WIDTH 14.1 % (12.0-15.0); WHITE BLOOD COUNT 8.8 x10^3/uL (4.8-10.8)
[2018-04-01 06:09] LABS: ALBUMIN 2.4 g/dL (3.2-5.5); ALBUMIN/GLOBULIN RATIO 0.8 (1.0-2.2); BILIRUBIN,TOTAL 0.7 mg/dL (0.2-1.0); CREATININE 0.7 mg/dL (0.4-1.0); TOTAL PROTEIN 5.6 g/dL (6.7-8.2)
[2018-04-01 06:32] LABS: PLATELET ESTIMATE, MANUAL NORMAL (130-450,000) (NORMAL); RBC MORPHOLOGY (MULTIPLE) NORMAL APPEARANCE (NORMAL)
[2018-04-01 06:33] LABS: DIFFERENTIAL COMMENT MANUAL=AUTO DIFF
[2018-04-01] MEDS: POLYETHYLENE GLYCOL 3350 17 GM PACKET PO SCH (08:11)
[2018-04-01] MEDS: ENOXAPARIN 40 MG/0.4 ML SYRINGE SUBQ SCH ×2 (08:11→08:21)
[2018-04-01] MEDS: CHOLECALCIFEROL 400 UNIT TABLET PO SCH ×2 (08:12→20:08)
[2018-04-01] MEDS: SACCHAROMYCES BOULARDII 250 MG CAPSULE PO SCH ×2 (08:12→18:11)
[2018-04-01] MEDS: LISINOPRIL 20 MG TABLET PO SCH ×2 (08:12→20:08)
[2018-04-01] MEDS: DONEPEZIL 5 MG TABLET PO SCH (08:12)
[2018-04-01] MEDS: amLODIPine 5 MG TABLET PO SCH (08:12)
[2018-04-01] MEDS: TRIAMT/HCTZ 37.5 MG/25 MG CAPSULE PO SCH (08:13)
[2018-04-01] MEDS: ASPIRIN CHEW 81 MG TABLET PO SCH (08:13)
[2018-04-01] MEDS: MEMANTINE 5 MG TABLET PO SCH (08:13)
[2018-04-01 09:15] LABS: INR 1.3 (0.8-1.2); PT - PROTHROMBIN TIME 14.7 secs (9.9-12.6)
[2018-04-01] MEDS ORDERED: BACITRACIN OINT TOP PRN (10:45)
[2018-04-01] MEDS: IPRATROPIUM/ALBUTEROL 3 ML NEB INH PRN (11:20)
[2018-04-01] MEDS: BUDESONIDE 0.5 MG/2 ML NEB INH SCH ×2 (11:20→19:48)
[2018-04-01 14:58] LABS: BF COLOR YELLOW; BF SOURCE PLEURAL; CC,BF RBC 682 /mm^3; EOSINOPHILS %,BODY FLUID 0 %; LYMPHOCYTES %,BODY FLUID 6; MACROPHAGES %,BODY FLUID 10 %; MESOTHELIAL %, BF 4 %; MONOCYTES %,BODY FLUID 5 %
[2018-04-01 15:01] LABS: CC,BF RBC 6558 /mm^3; LYMPHOCYTES %,BODY FLUID 4
[2018-04-01 15:02] LABS: BF COLOR YELLOW; BF SOURCE PLEURAL; MACROPHAGES %,BODY FLUID 2 %; MESOTHELIAL %, BF 2 %
--- NOTE | 2018-04-01 15:07 | PROVIDER PROGRESS NOTE ---
Assessment/Plan - Problem List (1) Bacteremia due to Gram-positive bacteria Assessment/Plan: Patient presented with fever and leukocytosis as well as decreased level of consciousness yesterday. Patient was thought to have urinary tract infection and responded well to IV antibiotics and fluids and was sent back to assisted living facility. At that time patient underwent blood culture which returned back positive and patient was brought back to the emergency department. The patient continued to have fevers. Patient's blood cultures are growing staph aureus with sensitives to follow. The patient's urine culture growing polymicrobial and she does not have any skin soft tissue infections that are o bvious. The patients echo does not show endocarditis. Bilateral Knee x rays negative for effusion. Patient has persistently positive blood cultures from 03/28, 03/29 and 03/30 Cultures from 03/28, 03/29 and 03/30 are growing Staph Aureus which is resistant to Penicillin Cultures from 03/31 still pending today but not positive so far Likely source found so far is loculated predominantly right subpulmonic effusion with consolidation Plan: IV Levaquin Repeat blood cultures daily Patient will need at least 14 days of antibiotics from date of negative blood culture. Thoracentesis done today with fluid taken from both right and left pleural effusions if positive for infection may need chest tube and General surgery says this would need sub-specialty care not available at this hospital (2) Pneumonia Conclusion/Plan: Patient has been having worsening cough and hypoxia over the last 2 days Repeat CXR today showed possible pneumonia and CT abd showed a right subpulmonic loculated effusion which is likely a parapneumonic effusion Patient on 1L of O2 Possible source of bacteremia Plan: Repeat Blood cx daily IV levaquin Supplemental O2 Thoracentesis with pleural fluid cx, cell count and diff, cytology bilateral done today Awaiting peritoneal fluid studies (3) UTI (urinary tract infection) Conclusion/Plan: The patient was found to have a positive urine analysis on presentation to the emergency department yesterday and was given IV ceftriaxone and discharged back to her assisted living facility with Keflex orally. It appears that the culture from yesterday is growing less than 10,000 polymicrobial growth which likely suggests a contaminant in her urine culture. Given that the patient did have presentation with fever and does have bacteremia we will treat her for possible urinary tract infection with Levaquin. Repeat UA is negative. Qualifiers: Urinary tract infection type: acute cystitis Hematuria presence: without hematuria Qualified Code(s): N30.00 - Acute cystitis without hematuria (4) AASHISH (acute kidney injury) Conclusion/Plan: Resolved with IVFs (5) Hypokalemia Conclusion/Plan: Resolved with K replacement Monitor (6) Hyponatremia Conclusion/Plan: Worsening today down to 127. Appears to be euvolemic. 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 Stop IVFs and monitor. (7) Dementia Conclusion/Plan: The patient has a history of dementia and is on Aricept and memantine at home. We will continue these medications while she is hospitalized. We will need to watch out for delirium and sundowning. The patient will need to be frequently oriented. She has very poor memory. Qualifiers: Dementia type: unspecified type Dementia behavioral disturbance: without behavioral disturbance Qualified Code(s): F03.90 - Unspecified dementia without behavioral disturbance (8) Hypertension Conclusion/Plan: The patient has a history of hypertension and patient's blood pressure is elevated on presentation. Despite the patient being bacteremic she does not appear to be septic at this time as her blood pressure is elevated and lactic acid is normal. Patient will be continued on her antihypertensive medications for now. We will continue to monitor the patient's blood pressure and titrate medications as needed. Well controlled Qualifiers: Hypertension type: essential hypertension Qualified Code(s): I10 - Essential (primary) hypertension (9) Asthma Conclusion/Plan: The patient has a history of asthma and is on albuterol as needed, Atrovent as needed along with Flovent at home. While the patient is hospitalized we will place the patient on budesonide nebulizer twice daily along with duo nebs as needed. X ray showed Pneumonia will manage as above. Qualifiers: Asthma severity: unspecified severity Asthma persistence: unspecified Asthma complication type: unspecified Qualified Code(s): J45.909 - Unspecified asthma, uncomplicated (10) Hyperlipidemia Conclusion/Plan: The patient has a history of hyperlipidemia and is on Lipitor at home. Currently she appears to be stable and we will continue her home dose of Lipitor. Qualifiers: Hyperlipidemia type: unspecified Qualified Code(s): E78.5 - Hyperlipidemia, unspecified - Current Meds Current Meds: Current Medications Generic Name Dose Route Start Last Admin Trade Name Freq PRN Reason Stop Dose Admin Albuterol/Ipratropium 3 ml 11/18/18 10:44 04/01/18 11:20 Duoneb INH 3 ml Q4HR PRN Administration Wheezing Amlodipine Besylate 2.5 mg 03/30/18 09:00 04/01/18 08:12 Norvasc PO 2.5 mg DAILY ZAY Administration Aspirin 81 mg 03/30/18 09:00 04/01/18 08:13 [facility] Aspirin PO 81 mg DAILY ZAY Administration Atorvastatin Calcium 10 mg 03/29/18 21:00 03/31/18 20:52 Lipitor PO 10 mg QPM ZAY Administration Budesonide 0.5 mg 03/29/18 19:00 04/01/18 11:20 Pulmicort INH 0.5 mg RTBID ZAY Administration Cholecalciferol 400 unit 03/29/18 21:00 04/01/18 08:12 Vitamin D3 PO 400 unit BID ZAY Administration Donepezil HCl 10 mg 03/30/18 09:00 04/01/18 08:12 Aricept PO 10 mg DAILY ZAY Administration Enoxaparin Sodium 40 mg 03/30/18 09:00 04/01/18 08:21 Lovenox SUBQ Not Given DAILY [facility] Famotidine 20 mg 03/29/18 21:00 03/31/18 20:52 Pepcid PO 20 mg QPM ZAY Administration Levofloxacin 750 mg in 150 mls @ 100 mls/hr 03/31/18 16:00 03/31/18 22:22 Levaquin 750 Mg/150 Ml IV Infused Q48H ZAY Infusion Ibuprofen 600 mg 03/29/18 10:44 03/29/18 18:55 Motrin PO 600 mg Q6HR PRN Administration Pain 1 to 4 Lisinopril 20 mg 03/29/18 21:00 04/01/18 08:12 Zestril PO 20 mg BID ZAY Administration Memantine 10 mg 03/30/18 09:00 04/01/18 08:13 Namenda PO 10 mg DAILY ZAY Administration Polyethylene Glycol 17 gm 03/30/18 09:00 04/01/18 08:11 Miralax PO 17 gm DAILY ZAY Administration Saccharomyces Boulardii 250 mg 03/29/18 17:00 04/01/18 08:12 Florastor PO 250 mg BIDWM ZAY Administration Sodium Chloride 10 ml 03/29/18 10:44 03/31/18 21:00 Normal Saline Flush 0.9% IVP 10 ml PRN PRN Administration NEEDED PER PROVIDER ORDERS Sodium Chloride 10 ml 03/29/18 17:00 04/01/18 08:14 Normal Saline Flush 0.9% IVP Not Given 0100,0900,1700 ZAY Triamterene/HCTZ 2 cap 03/30/18 09:00 04/01/18 08:13 Dyazide PO 2 cap DAILY ZAY Administration - Lab Result Lab results reviewed: Yes Fish Bone Diagrams: 04/01/18 05:30 04/01/18 05:30 - Diagnostic Imaging Results Diagnostic Imaging Results: Final report reviewed - Additional Planning Condition/Complexity: Guarded My Orders: My Active Orders 03/31/18 16:00 levoFLOXacin 750 MG/150 ML [Levaquin 750 mg/150 ml] 750 mg in 150 ml IV Q48H 03/31/18 17:00 CULTURE, BLOOD #1 [RM] Stat 03/31/18 17:08 CULTURE, BLOOD #2 [RM] Stat 04/01/18 05:00 LDH - LACTATE DEHYDROGENASE [CHEM] Urgent 04/01/18 08:46 Miscellaneous Laboratory Order [LAB] Urgent 04/01/18 09:00 Thoracentesis Puncture [US] Stat CULTURE, BLOOD #2 [RM] DAILY 04/01/18 10:45 Bacitracin Oint [Bacitracin] 1 packet TOP PRN PRN 04/01/18 12:00 CELL COUNT, BF [BF] Stat CELL COUNT, BF [BF] Stat CUL, ANAEROBIC (QUEST) [REFLAB] Stat CUL, ANAEROBIC (QUEST) [REFLAB] Stat CUL,BODY FLUID(AEROBIC) [RM] Stat MISC TEST QUEST REFRIG [REFLAB] Routine MISC TEST QUEST REFRIG [REFLAB] Routine MISC TEST QUEST REFRIG [REFLAB] Routine MISC TEST QUEST REFRIG [REFLAB] Routine MISC TEST QUEST REFRIG [REFLAB] Routine MISC TEST QUEST REFRIG [REFLAB] Routine 04/01/18 12:01 CUL,BODY FLUID(AEROBIC) [RM] Stat 04/01/18 12:02 Thoracentesis Puncture [US] Stat 04/01/18 13:42 Miscellaneous Laboratory Order [LAB] Urgent 04/02/18 09:00 CULTURE, BLOOD #2 [RM] DAILY 04/03/18 09:00 CULTURE, BLOOD #2 [RM] DAILY 04/04/18 09:00 CULTURE, BLOOD #2 [RM] DAILY Plan Discussed with:: Patient, Family Time Spent: Greater than 60 minutes Subjective - Subjective Patient Reports: Feeling Better, Resting Comfortably, No Complaints, Cough (She does have cough but no current complants of cough.), Shortness of Breath (No SOB) Nursing Reports: No Complaints Objective Vital Signs: Vital Signs - 24 hr 03/31/18 03/31/18 03/31/18 15:31 20:48 21:14 Temperature 37.1 C 37.5 C Heart Rate 65 Heart Rate [ 68 66 Brachial] Respiratory 16 24 16 Rate Blood Pressure 125/53 L 138/48 H [Left Brachial artery] Blood Pressure [Right Brachial artery] O2 Saturation 98 94 03/31/18 04/01/18 04/01/18 23:30 08:00 11:20 Temperature 37.1 C 37.1 C Heart Rate 78 Heart Rate [ 75 71 Brachial] Respiratory 16 22 16 Rate Blood Pressure [Left Brachial artery] Blood Pressure 116/52 L 124/56 L [Right Brachial artery] O2 Saturation 99 94 Oxygen O2 Source Room air I&O (Last 24 Hrs): Intake and Output Totals x24h 03/30/18 03/31/18 04/01/18 23:59 23:59 23:59 Intake Total 4461.667 4002.083 2031.25 Output Total 2225 1200 Balance 4461.667 1777.083 831.25 General: Alert, Cooperative, No acute distress, Other (Oriented x1, pleasantly demented) HEENT: Atraumatic, PERRLA, EOMI, Mucous membr. moist/pink Neck: Supple, No JVD, No thyromegaly, +2 carotid pulse wo bruit, No LAD Lymphatic: no adenopathy Neuro: Alert, CN 2-12 Grossly Intact, Other (Oriented x 1) Cardiovascular: Regular rate, Normal S1, Normal S2, No murmurs Respiratory: Chest non-tender, No respiratory distress, Rhonchi (Bilateral lower lobes) Abdomen: Normal bowel sounds, Soft, No tenderness, No hepatospenomegaly Extremities: No clubbing, No cyanosis, No edema, Normal pulses Skin: No rashes, No breakdown - Results Results: Laboratory Results WBC 8.8 x10^3/uL (4.8-10.8) 04/01/18 05:30 RBC 3.57 10^6/uL (4.20-5.40) L 04/01/18 05:30 Hgb 10.0 g/dL (12.0-16.0) L 04/01/18 05:30 Hct 30.6 % (37.0-47.0) L 04/01/18 05:30 MCV 85.7 fL (81.0-99.0) 04/01/18 05:30 MCH 28.1 pg (27.0-31.0) 04/01/18 05:30 MCHC 32.7 g/dL (32.0-36.0) 04/01/18 05:30 RDW 14.1 % (12.0-15.0) 04/01/18 05:30 Plt Count 131 10^3/uL (130-450) 04/01/18 05:30 MPV 8.0 fL (7.9-10.8) 04/01/18 05:30 Neut # (Auto) 6.3 10^3/uL (1.5-6.6) 04/01/18 05:30 Lymph # (Auto) 1.2 10^3/uL (1.5-3.5) L 04/01/18 05:30 [place] # (Auto) 1.3 10^3/uL (0.0-1.0) H 04/01/18 05:30 Eos # (Auto) 0.0 10^3/uL (0.0-0.7) 04/01/18 05:30 Baso # (Auto) 0.0 10^3/uL (0.0-0.1) 04/01/18 05:30 Absolute Nucleated RBC 0.01 x10^3/uL 04/01/18 05:30 Band Neuts % (Manual) Not Reportable 04/01/18 05:30 Abnorm Lymph % (Manual) Not Reportable 04/01/18 05:30 Nucleated RBC % 0.1 /100WBC 04/01/18 05:30 Neutrophils # (Manual) Not Reportable 04/01/18 05:30 Lymphocytes # (Manual) Not Reportable 04/01/18 05:30 Monocytes # (Manual) Not Reportable 04/01/18 05:30 Eosinophils # (Manual) Not Reportable 04/01/18 05:30 Basophils # (Manual) Not Reportable 04/01/18 05:30 Differential Comment MANUAL=AUTO DIFF 04/01/18 05:30 Platelet Estimate NORMAL (130-450,000) (NORMAL) 04/01/18 05:30 RBC Morph Micro Appear NORMAL APPEARANCE (NORMAL) 04/01/18 05:30 PT 14.7 secs (9.9-12.6) H 04/01/18 09:00 INR 1.3 (0.8-1.2) H 04/01/18 09:00 Sodium 127 mmol/L (135-145) L 04/01/18 05:30 Potassium 3.6 mmol/L (3.5-5.0) 04/01/18 05:30 Chloride 95 mmol/L (101-111) L 04/01/18 05:30 Carbon Dioxide 26 mmol/L (21-32) 04/01/18 05:30 Anion Gap 6.0 (6-13) 04/01/18 05:30 BUN 21 mg/dL (6-20) H 04/01/18 05:30 Creatinine 0.7 mg/dL (0.4-1.0) 04/01/18 05:30 Estimated GFR (MDRD) 79 (>89) L 04/01/18 05:30 Glucose 111 mg/dL (70-100) H 04/01/18 05:30 Lactic Acid 1.5 mmol/L (0.5-2.2) 03/29/18 10:34 Calcium 8.0 mg/dL (8.5-10.3) L 04/01/18 05:30 Total Bilirubin 0.7 mg/dL (0.2-1.0) 04/01/18 05:30 AST 33 IU/L (10-42) 04/01/18 05:30 ALT 31 IU/L (10-60) 04/01/18 05:30 Alkaline Phosphatase 58 IU/L (42-121) 04/01/18 05:30 Total Protein 5.6 g/dL (6.7-8.2) L 04/01/18 05:30 Albumin 2.4 g/dL (3.2-5.5) L 04/01/18 05:30 Globulin 3.2 g/dL (2.1-4.2) 04/01/18 05:30 Albumin/Globulin Ratio 0.8 (1.0-2.2) L 04/01/18 05:30 Urine Color YELLOW 03/31/18 10:41 Urine Clarity CLEAR (CLEAR) 03/31/18 10:41 Urine pH 6.0 PH (5.0-7.5) 03/31/18 10:41 Ur Specific [place] 1.020 (1.002-1.030) 03/31/18 10:41 Urine Protein NEGATIVE mg/dL (NEGATIVE) 03/31/18 10:41 Urine Glucose (UA) NEGATIVE mg/dL (NEGATIVE) 03/31/18 10:41 Urine Ketones NEGATIVE mg/dL (NEGATIVE) 03/31/18 10:41 Urine Occult Blood TRACE-LYSE (NEGATIVE) 03/31/18 10:41 Urine Nitrite NEGATIVE (NEGATIVE) 03/31/18 10:41 Urine Bilirubin NEGATIVE (NEGATIVE) 03/31/18 10:41 Urine Urobilinogen 0.2 (NORMAL) E.U./dL (NORMAL) 03/31/18 10:41 Ur Leukocyte Esterase NEGATIVE (NEGATIVE) 03/31/18 10:41 Ur Microscopic Review NOT INDICATED 03/31/18 10:41 Urine Culture Comments NOT INDICATED 03/31/18 10:41 Fluid WBC /mm^3 04/01/18 12:00 ABX Reporting Has patient been on IV antibiotics over the past 48 hours?: Yes Current Medications - Current Medications Current Medications: Active Medications Generic Name Dose Route Start Last Admin Trade Name Mtq PRN Reason Stop Dose Admin Acetaminophen 650 mg 03/29/18 10:44 Tylenol PO Q4HR PRN Pain 1 to 4 Albuterol/Ipratropium 3 ml 03/29/18 10:44 04/01/18 11:20 Duoneb INH 3 ml Q4HR PRN Administration Wheezing Amlodipine Besylate 2.5 mg 03/30/18 09:00 04/01/18 08:12 Norvasc PO 2.5 mg DAILY ZAY Administration Aspirin 81 mg 03/30/18 09:00 04/01/18 08:13 [facility] Aspirin PO 81 mg DAILY ZAY Administration Atorvastatin Calcium 10 mg 03/29/18 21:00 03/31/18 20:52 Lipitor PO 10 mg QPM [facility] Administration Bacitracin 1 packet 04/01/18 10:45 Bacitracin TOP PRN PRN Skin Care Budesonide 0.5 mg 03/29/18 19:00 04/01/18 11:20 Pulmicort INH 0.5 mg RTBID ZAY Administration Cholecalciferol 400 unit 03/29/18 21:00 04/01/18 08:12 Vitamin D3 PO 400 unit BID [facility] Administration Donepezil HCl 10 mg 03/30/18 09:00 04/01/18 08:12 Aricept PO 10 mg DAILY [facility] Administration Enoxaparin Sodium 40 mg 03/30/18 09:00 04/01/18 08:21 Lovenox SUBQ Not Given DAILY [facility] Famotidine 20 mg 03/29/18 21:00 03/31/18 20:52 Pepcid PO 20 mg QPM [facility] Administration Levofloxacin 750 mg in 150 mls @ 100 mls/hr 03/31/18 16:00 03/31/18 22:22 Levaquin 750 Mg/150 Ml IV Infused Q48H [facility] Infusion Ibuprofen 600 mg 03/29/18 10:44 03/29/18 18:55 Motrin PO 600 mg Q6HR PRN Administration Pain 1 to 4 Lisinopril 20 mg 03/29/18 21:00 04/01/18 08:12 Zestril PO 20 mg BID [facility] Administration Memantine 10 mg 03/30/18 09:00 04/01/18 08:13 Namenda PO 10 mg DAILY [facility] Administration Ondansetron HCl 4 mg 03/29/18 10:44 Zofran Inj IVP Q6HR PRN Nausea / Vomiting Oxycodone HCl 5 mg 03/29/18 10:44 Roxicodone PO Q4HR PRN Pain 5 to 7 Polyethylene Glycol 17 gm 03/30/18 09:00 04/01/18 08:11 Miralax PO 17 gm DAILY [facility] Administration Prochlorperazine Edisylate 10 mg 03/29/18 10:44 Compazine Inj IVP Q6HR PRN Nausea / Vomiting Promethazine HCl 25 mg 03/29/18 10:44 Phenergan Inj IM Q6HR PRN Nausea / Vomiting Saccharomyces Boulardii 250 mg 03/29/18 17:00 04/01/18 08:12 Florastor PO 250 mg BIDWM ZAY Administration Sodium Chloride 10 ml 03/29/18 10:44 03/31/18 21:00 Normal Saline Flush 0.9% IVP 10 ml PRN PRN Administration NEEDED PER PROVIDER ORDERS Sodium Chloride 10 ml 03/29/18 17:00 04/01/18 08:14 Normal Saline Flush 0.9% IVP Not Given 0100,0900,1700 ZAY Triamterene/HCTZ 2 cap 03/30/18 09:00 04/01/18 08:13 Dyazide PO 2 cap DAILY ZAY Administration Aspirin 81 mg PO DAILY 03/28/18 Atorvastatin [Lipitor] 10 mg PO QPM 03/28/18 Donepezil [Aricept] 10 mg PO QPM 03/28/18 Ipratropium [Atrovent] 1 puffs INH BID 03/28/18 Memantine HCl 10 mg PO DAILY 03/28/18 Triamterene/Hydrochlorothiazid [Triamterene-Hctz 75-50 mg Tab] 1 tab PO DAILY 03/28/18 Albuterol Sulf [Ventolin Hfa Inhaler] 2 puffs INH QID PRN 03/29/18 Calcium Carbonate/Vitamin D3 [Calcium 500-Vit D3 200 Tablet] 1 tab PO TID 03/29/18 Cholecalciferol (Vitamin D3) [Vitamin D3] 400 unit PO BID 03/29/18 Fluticasone 110 Mcg [Flovent] 2 puffs INH BID 03/29/18 Lisinopril 20 mg PO BID 03/29/18 amLODIPine [Norvasc] 2.5 mg PO DAILY 03/29/18
--- NOTE | 2018-04-01 16:21 | Ultrasound Report ---
Reason: Loculated Right pleural effusion with bactremia Procedure Date: 04/01/2018 Accession Number: [id number] / [id number] Procedure: US - Thoracentesis Puncture CPT Code: FULL RESULT: EXAM: Thoracentesis Puncture, Thoracentesis Puncture DATE: 04/01/2018 1:37 PM CLINICAL HISTORY: Loculated Right and left pleural effusion with bactremia COMPARISON: None. TECHNIQUE/FINDINGS: The risks, benefits, and alternatives of the procedure were discussed with the patient as well as the patient's son Heber. All questions were answered. Written and verbal consent were obtained. Focused ultrasound of the right and left thorax was performed confirming what appear to be somewhat loculated pleural effusions. Under sterile technique and live ultrasound guidance a Yueh catheter needle combination was then advanced into the right pleural space following local anesthesia with lidocaine and a sample was obtained. Postprocedural ultrasound images demonstrated no immediate complication. An occlusive sterile dressing was applied. Under sterile technique and live ultrasound guidance a Yueh catheter needle comminution was then advanced into the right pleural space following local anesthesia with lidocaine and a sample was obtained. Postprocedure ultrasound images demonstrated no immediate consultation. An occlusive dressing was applied. The 2 separately labeled samples identified bilaterally were submitted to microbiology/pathology for analysis. The patient appeared to tolerate the procedure well. IMPRESSION: Bilateral image guided diagnostic thoracentesis. RADIA
--- NOTE | 2018-04-01 16:21 | Ultrasound Report ---
Reason: Left lung effusion Procedure Date: 04/01/2018 Accession Number: [id number] / [id number] Procedure: US - Thoracentesis Puncture CPT Code: FULL RESULT: EXAM: Thoracentesis Puncture, Thoracentesis Puncture DATE: 04/01/2018 1:37 PM CLINICAL HISTORY: Loculated Right and left pleural effusion with bactremia COMPARISON: None. TECHNIQUE/FINDINGS: The risks, benefits, and alternatives of the procedure were discussed with the patient as well as the patient's son Heber. All questions were answered. Written and verbal consent were obtained. Focused ultrasound of the right and left thorax was performed confirming what appear to be somewhat loculated pleural effusions. Under sterile technique and live ultrasound guidance a Yueh catheter needle combination was then advanced into the right pleural space following local anesthesia with lidocaine and a sample was obtained. Postprocedural ultrasound images demonstrated no immediate complication. An occlusive sterile dressing was applied. Under sterile technique and live ultrasound guidance a Yueh catheter needle comminution was then advanced into the right pleural space following local anesthesia with lidocaine and a sample was obtained. Postprocedure ultrasound images demonstrated no immediate consultation. An occlusive dressing was applied. The 2 separately labeled samples identified bilaterally were submitted to microbiology/pathology for analysis. The patient appeared to tolerate the procedure well. IMPRESSION: Bilateral image guided diagnostic thoracentesis. [facility]
[2018-04-01] MEDS: BUFFERED LIDOCAINE 10 ML SYRINGE IU SCH ×2 (17:27→17:28)
[2018-04-01] MEDS: FAMOTIDINE 20 MG TABLET PO SCH (20:08)
[2018-04-01] MEDS: ATORVASTATIN 10 MG TABLET PO SCH (20:08)
[2018-04-01] MEDS: ACETAMINOPHEN 325 MG TABLET PO PRN (20:33)
[2018-04-02] MEDS: SODIUM CHLORIDE FLUSH 0.9% 10 ML SYRINGE IVP SCH ×3 (01:14→16:19)
[2018-04-02] MEDS: IBUPROFEN 600 MG TABLET PO PRN (02:55)
[2018-04-02] MEDS: BUDESONIDE 0.5 MG/2 ML NEB INH SCH ×2 (07:28→20:07)
[2018-04-02] MEDS: IPRATROPIUM/ALBUTEROL 3 ML NEB INH PRN (07:28)
[2018-04-02] MEDS: POLYETHYLENE GLYCOL 3350 17 GM PACKET PO SCH (08:52)
[2018-04-02] MEDS: MEMANTINE 5 MG TABLET PO SCH (08:52)
[2018-04-02] MEDS: TRIAMT/HCTZ 37.5 MG/25 MG CAPSULE PO SCH (08:53)
[2018-04-02] MEDS: amLODIPine 5 MG TABLET PO SCH (08:53)
[2018-04-02] MEDS: DONEPEZIL 5 MG TABLET PO SCH (08:53)
[2018-04-02] MEDS: LISINOPRIL 20 MG TABLET PO SCH ×2 (08:53→20:34)
[2018-04-02] MEDS: CHOLECALCIFEROL 400 UNIT TABLET PO SCH ×2 (08:53→20:34)
[2018-04-02] MEDS: ASPIRIN CHEW 81 MG TABLET PO SCH (08:54)
[2018-04-02] MEDS: ENOXAPARIN 40 MG/0.4 ML SYRINGE SUBQ SCH (08:54)
[2018-04-02] MEDS: SACCHAROMYCES BOULARDII 250 MG CAPSULE PO SCH ×2 (08:54→16:19)
[2018-04-02 09:15] LABS: BASOPHILS % (AUTO) 0.2 %; EOSINOPHILS % (AUTO) 0.4 %; HGB - HEMOGLOBIN 11.6 g/dL (12.0-16.0); LYMPHOCYTES # (AUTO) 1.4 10^3/uL (1.5-3.5); LYMPHOCYTES % (AUTO) 14.6 %; MEAN CORPUSCULAR HEMOGLOBIN 28.7 pg (27.0-31.0); MEAN CORPUSCULAR HGB CONC 34.1 g/dL (32.0-36.0); MEAN CORPUSCULAR VOLUME 84.1 fL (81.0-99.0); MEAN PLATELET VOLUME 8.1 fL (7.9-10.8); MONOCYTES # (AUTO) 0.8 10^3/uL (0.0-1.0); MONOCYTES % (AUTO) 8.3 %; NEUTROPHILS # (AUTO) 7.6 10^3/uL (1.5-6.6); NEUTROPHILS % (AUTO) 76.5 %; PLT - PLATELET COUNT 188 10^3/uL (130-450); RED BLOOD COUNT 4.05 10^6/uL (4.20-5.40); WHITE BLOOD COUNT 9.9 x10^3/uL (4.8-10.8)
[2018-04-02 09:24] LABS: ALBUMIN 2.8 g/dL (3.2-5.5); ALBUMIN/GLOBULIN RATIO 0.8 (1.0-2.2); ALKALINE PHOSPHATASE 69 IU/L (42-121); ALT ALANINE AMINOTRANSFERASE 34 IU/L (10-60); AST ASPARTATE AMINOTRANSFERASE 34 IU/L (10-42); BILIRUBIN,TOTAL 0.9 mg/dL (0.2-1.0); BUN - BLOOD UREA NITROGEN 20 mg/dL (6-20); CALCIUM 8.7 mg/dL (8.5-10.3); CARBON DIOXIDE - CO2 29 mmol/L (21-32); CHLORIDE 92 mmol/L (101-111); CREATININE 0.8 mg/dL (0.4-1.0); GFR - MDRD 68 (>89); GLUCOSE 188 mg/dL (70-100); SODIUM 128 mmol/L (135-145); TOTAL PROTEIN 6.3 g/dL (6.7-8.2)
[2018-04-02] MEDS ORDERED: SODIUM CHLORIDE 0.9% 1,000 ML IV SCH (10:00)
[2018-04-02] MEDS ORDERED: POTASSIUM CHLOR 10 MEQ/100 ML 10 MEQ/100 ML BAG IV SCH (10:00)
[2018-04-02] MEDS: POTASSIUM CHLORIDE 20 MEQ TABLET PO SCH ×2 (10:39→20:33)
--- NOTE | 2018-04-02 15:05 | PROVIDER PROGRESS NOTE ---
Assessment/Plan - Problem List (1) Bacteremia due to Gram-positive bacteria Assessment/Plan: Patient presented with fever and leukocytosis as well as decreased level of consciousness yesterday. Patient was thought to have urinary tract infection and responded well to IV antibiotics and fluids and was sent back to assisted living facility. At that time patient underwent blood culture which returned back positive and patient was brought back to the emergency department. The patient continued to have fevers. Patient's blood cultures are growing staph aureus with sensitives to follow. The patient's urine culture growing polymicrobial and she does not have any skin soft tissue infections that are o bvious. The patients echo does not show endocarditis. Bilateral Knee x rays negative for effusion. Patient has persistently positive blood cultures from 03/28, 03/29 and 03/30 Cultures from 03/28, 03/29 and 03/30 are growing Staph Aureus which is resistant to Penicillin in 2 out of 2 bottles Cultures from 03/31 growing Staph aureus in 1 out of 2 bottles Cultures from 04/01 negative so far Likely source found so far is loculated predominantly right subpulmonic effusion with consolidation Thoracentesis done yesterday with bilateral effusions drained so far cultures are negative but still pending Clinically patient continues to be stable with no leukocytosis and no fevers and otherwise appears well without any complaints Plan: IV Levaquin Repeat blood cultures daily Patient will need at least 14 days of antibiotics from date of negative blood culture. Today ID was consulted on MED CON with [facility] for further recommendations but have not yet heard back from them will likely receive call tomorrow as today is (2) Pneumonia Conclusion/Plan: Patient had been having worsening cough and hypoxia Repeat CXR showed possible pneumonia and CT abd showed a right subpulmonic loculated effusion which is likely a parapneumonic effusion On RA now Possible source of bacteremia Thoracentesis done yesterday with cultures pending Plan: Repeat Blood cx daily IV levaquin Supplemental O2 as needed Awaiting pleural fluid cultures (3) UTI (urinary tract infection) Conclusion/Plan: The patient was found to have a positive urine analysis on presentation to the emergency department yesterday and was given IV ceftriaxone and discharged back to her assisted living facility with Keflex orally. It appears that the culture from yesterday is growing less than 10,000 polymicrobial growth which likely suggests a contaminant in her urine culture. Given that the patient did have presentation with fever and does have bacteremia we will treat her for possible urinary tract infection with Levaquin. Repeat UA is negative. Qualifiers: Urinary tract infection type: acute cystitis Hematuria presence: without hematuria Qualified Code(s): N30.00 - Acute cystitis without hematuria (4) AASHISH (acute kidney injury) Conclusion/Plan: Resolved with IVFs (5) Hypokalemia Conclusion/Plan: K is 3.0 Replace K Unclear source of K loss as normal renal function, no diarrhea, no vomiting and normal CT abd. (6) Hyponatremia Conclusion/Plan: Improved today to 128. Appears to be euvolemic. 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 Stopped IVFs and monitoring may need to fluid restrict if it continues (7) Dementia Conclusion/Plan: The patient has a history of dementia and is on Aricept and memantine at home. We will continue these medications while she is hospitalized. We will need to watch out for delirium and sundowning. The patient will need to be frequently oriented. She has very poor memory. Qualifiers: Dementia type: unspecified type Dementia behavioral disturbance: without behavioral disturbance Qualified Code(s): F03.90 - Unspecified dementia without behavioral disturbance (8) Hypertension Conclusion/Plan: The patient has a history of hypertension and patient's blood pressure is maria c vated on presentation. Despite the patient being bacteremic she does not appear to be septic at this time as her blood pressure is elevated and lactic acid is normal. Patient will be continued on her antihypertensive medications for now. We will continue to monitor the patient's blood pressure and titrate medications as needed. Well controlled Qualifiers: Hypertension type: essential hypertension Qualified Code(s): I10 - Essential (primary) hypertension (9) Asthma Conclusion/Plan: The patient has a history of asthma and is on albuterol as needed, Atrovent as needed along with Flovent at home. While the patient is hospitalized we will place the patient on budesonide nebulizer twice daily along with duo nebs as needed. X ray showed Pneumonia will manage as above. Qualifiers: Asthma severity: unspecified severity Asthma persistence: unspecified Asthma complication type: unspecified Qualified Code(s): J45.909 - Unspecified asthma, uncomplicated (10) Hyperlipidemia Conclusion/Plan: The patient has a history of hyperlipidemia and is on Lipitor at home. Currently she appears to be stable and we will continue her home dose of Lip itor. Qualifiers: Hyperlipidemia type: unspecified Qualified Code(s): E78.5 - Hyperlipidemia, unspecified - Current Meds Current Meds: Current Medications Generic Name Dose Route Start Last Admin Trade Name Freq PRN Reason Stop Dose Admin Acetaminophen 650 mg 03/29/18 10:44 04/01/18 20:33 Tylenol PO 650 mg Q4HR PRN Administration Pain 1 to 4 Albuterol/Ipratropium 3 ml 03/29/18 10:44 04/02/18 07:28 Duoneb INH 3 ml Q4HR PRN Administration Wheezing Amlodipine Besylate 2.5 mg 03/30/18 09:00 04/02/18 08:53 Norvasc PO 2.5 mg DAILY ZAY Administration Aspirin 81 mg 03/30/18 09:00 04/02/18 08:54 [facility] Aspirin PO 81 mg DAILY ZAY Administration Atorvastatin Calcium 10 mg 03/29/18 21:00 04/01/18 20:08 Lipitor PO 10 mg QPM ZAY Administration Budesonide 0.5 mg 03/29/18 19:00 04/02/18 07:28 Pulmicort INH 0.5 mg RTBID ZAY Administration Cholecalciferol 400 unit 03/29/18 21:00 04/02/18 08:53 Vitamin D3 PO 400 unit BID ZAY Administration Donepezil HCl 10 mg 03/30/18 09:00 04/02/18 08:53 Aricept PO 10 mg DAILY ZAY Administration Enoxaparin Sodium 40 mg 03/30/18 09:00 04/02/18 08:54 Lovenox SUBQ 40 mg DAILY ZAY Administration Famotidine 20 mg 03/29/18 21:00 04/01/18 20:08 Pepcid PO 20 mg QPM ZYA Administration Levofloxacin 750 mg in 150 mls @ 100 mls/hr 03/31/18 16:00 03/31/18 22:22 Levaquin 750 Mg/150 Ml IV Infused Q48H ZAY Infusion Sodium Chloride 1,000 mls @ 0 mls/hr 04/02/18 10:00 04/02/18 12:46 Normal Saline 0.9% IV 0 mls/hr .Q0M ZAY Infusion TKO Ibuprofen 600 mg 03/29/18 10:44 04/02/18 02:55 Motrin PO 600 mg Q6HR PRN Administration Pain 1 to 4 Lisinopril 20 mg 03/29/18 21:00 04/02/18 08:53 Zestril PO 20 mg BID ZAY Administration Memantine 10 mg 03/30/18 09:00 04/02/18 08:52 Namenda PO 10 mg DAILY ZAY Administration Polyethylene Glycol 17 gm 03/30/18 09:00 04/02/18 08:52 Miralax PO 17 gm DAILY ZAY Administration Potassium Chloride 40 meq 04/02/18 11:00 04/02/18 10:39 K-Dur PO 40 meq BID ZAY Administration Saccharomyces Boulardii 250 mg 03/29/18 17:00 04/02/18 08:54 Florastor PO 250 mg BIDWM ZAY Administration Sodium Chloride 10 ml 03/29/18 10:44 03/31/18 21:00 Normal Saline Flush 0.9% IVP 10 ml PRN PRN Administration NEEDED PER PROVIDER ORDERS Sodium Chloride 10 ml 03/29/18 17:00 04/02/18 08:54 Normal Saline Flush 0.9% IVP 10 ml 0100,0900,1700 ZAY Administration Triamterene/HCTZ 2 cap 03/30/18 09:00 04/02/18 08:53 Dyazide PO 2 cap DAILY ZAY Administration - Lab Result Lab results reviewed: Yes Fish Bone Diagrams: 04/02/18 08:57 04/02/18 08:57 - Diagnostic Imaging Results Diagnostic Imaging Results: Final report reviewed - Additional Planning Condition/Complexity: Stable My Orders: My Active Orders 04/02/18 08:57 CULTURE, BLOOD #2 [RM] DAILY 04/02/18 10:00 Sodium Chloride 0.9% [Normal Saline 0.9%] 1,000 ml IV TKO 04/02/18 11:00 Potassium Chloride [K-Dur] 40 meq PO BID 04/03/18 05:00 CBC - COMP BLD CT W/AUTO DIFF [HEME] DAILYLAB CMP, RFLX TO IONIZED CA IF [CHEM] DAILYLAB MAGNESIUM [CHEM] DAILYLAB PHOSPHORUS [CHEM] DAILYLAB 04/03/18 09:00 CULTURE, BLOOD #2 [RM] DAILY 04/04/18 05:00 CBC - COMP BLD CT W/AUTO DIFF [HEME] DAILYLAB CMP, RFLX TO IONIZED CA IF [CHEM] DAILYLAB MAGNESIUM [CHEM] DAILYLAB PHOSPHORUS [CHEM] DAILYLAB 04/04/18 09:00 CULTURE, BLOOD #2 [RM] DAILY 04/05/18 05:00 CBC - COMP BLD CT W/AUTO DIFF [HEME] DAILYLAB CMP, RFLX TO IONIZED CA IF [CHEM] DAILYLAB MAGNESIUM [CHEM] DAILYLAB PHOSPHORUS [CHEM] DAILYLAB Consult/Specialty: Infectious Disease Plan Discussed with:: Patient Time Spent: 31-60 minutes Subjective - Subjective Patient Reports: Resting Comfortably, No Complaints, Other (Patient has no complaints this morning. Denies any fevers, chills, cough, shortness of breath, chest pain, vomiting, diarrhea or pain.) Nursing Reports: No Complaints Objective Vital Signs: Vital Signs - 24 hr 04/01/18 04/01/18 04/01/18 15:40 19:48 23:59 Temperature 36.8 C 36.7 C Heart Rate 80 Heart Rate [ 69 63 Brachial] Respiratory 20 20 20 Rate Blood Pressure 136/51 H [Left Brachial artery] Blood Pressure 148/56 H [Right Brachial artery] O2 Saturation 98 92 04/02/18 04/02/18 04/02/18 07:32 07:36 09:03 Temperature 36.7 C 36.7 C Heart Rate 74 60 Heart Rate [ 60 Brachial] Respiratory 18 18 18 Rate Blood Pressure [Left Brachial artery] Blood Pressure 141/54 H [Right Brachial artery] O2 Saturation 94 94 Oxygen O2 Source Room air I&O (Last 24 Hrs): Intake and Output Totals x24h 03/31/18 04/01/18 04/02/18 23:59 23:59 23:59 Intake Total 4002.083 2531.25 1058.667 Output Total 2225 1750 2000 Balance 1777.083 781.25 -941.333 General: Alert, Cooperative, No acute distress, Other (Oriented x1) HEENT: Atraumatic, PERRLA, EOMI, Mucous membr. moist/pink Neck: Supple, No JVD, No thyromegaly, +2 carotid pulse wo bruit, No LAD Lymphatic: no adenopathy Neuro: Alert, Non Focal, CN 2-12 Grossly Intact, Oriented Times 3 Cardiovascular: Regular rate, Normal S1, Normal S2, No murmurs Respiratory: Chest non-tender, No respiratory distress, Breath sounds nml Abdomen: Normal bowel sounds, Soft, No tenderness, No hepatospenomegaly, No masses Extremities: No clubbing, No cyanosis, No edema, Normal pulses Skin: No rashes, No breakdown - Results Results: Laboratory Results WBC 9.9 x10^3/uL (4.8-10.8) 04/02/18 08:57 RBC 4.05 10^6/uL (4.20-5.40) L 04/02/18 08:57 Hgb 11.6 g/dL (12.0-16.0) L 04/02/18 08:57 Hct 34.1 % (37.0-47.0) L 04/02/18 08:57 MCV 84.1 fL (81.0-99.0) 04/02/18 08:57 MCH 28.7 pg (27.0-31.0) 04/02/18 08:57 MCHC 34.1 g/dL (32.0-36.0) 04/02/18 08:57 RDW 14.0 % (12.0-15.0) 04/02/18 08:57 Plt Count 188 10^3/uL (130-450) 04/02/18 08:57 MPV 8.1 fL (7.9-10.8) 04/02/18 08:57 Neut # (Auto) 7.6 10^3/uL (1.5-6.6) H 04/02/18 08:57 Lymph # (Auto) 1.4 10^3/uL (1.5-3.5) L 04/02/18 08:57 [place] # (Auto) 0.8 10^3/uL (0.0-1.0) 04/02/18 08:57 Eos # (Auto) 0.0 10^3/uL (0.0-0.7) 04/02/18 08:57 Baso # (Auto) 0.0 10^3/uL (0.0-0.1) 04/02/18 08:57 Absolute Nucleated RBC 0.00 x10^3/uL 04/02/18 08:57 Band Neuts % (Manual) Not Reportable 04/01/18 05:30 Abnorm Lymph % (Manual) Not Reportable 04/01/18 05:30 Nucleated RBC % 0.0 /100WBC 04/02/18 08:57 Neutrophils # (Manual) Not Reportable 04/01/18 05:30 Lymphocytes # (Manual) Not Reportable 04/01/18 05:30 Monocytes # (Manual) Not Reportable 04/01/18 05:30 Eosinophils # (Manual) Not Reportable 04/01/18 05:30 Basophils # (Manual) Not Reportable 04/01/18 05:30 Differential Comment MANUAL=AUTO DIFF 04/01/18 05:30 Platelet Estimate NORMAL (130-450,000) (NORMAL) 04/01/18 05:30 RBC Morph Micro Appear NORMAL APPEARANCE (NORMAL) 04/01/18 05:30 PT 14.7 secs (9.9-12.6) H 04/01/18 09:00 INR 1.3 (0.8-1.2) H 04/01/18 09:00 Sodium 128 mmol/L (135-145) L 04/02/18 08:57 Potassium 3.0 mmol/L (3.5-5.0) L 04/02/18 08:57 Chloride 92 mmol/L (101-111) L 04/02/18 08:57 Carbon Dioxide 29 mmol/L (21-32) 04/02/18 08:57 Anion Gap 7.0 (6-13) 04/02/18 08:57 BUN 20 mg/dL (6-20) 04/02/18 08:57 Creatinine 0.8 mg/dL (0.4-1.0) 04/02/18 08:57 Estimated GFR (MDRD) 68 (>89) L 04/02/18 08:57 Glucose 188 mg/dL (70-100) H 04/02/18 08:57 Lactic Acid 1.5 mmol/L (0.5-2.2) 03/29/18 10:34 Calcium 8.7 mg/dL (8.5-10.3) 04/02/18 08:57 Ionized Calcium NO 04/02/18 08:57 Total Bilirubin 0.9 mg/dL (0.2-1.0) 04/02/18 08:57 AST 34 IU/L (10-42) 04/02/18 08:57 ALT 34 IU/L (10-60) 04/02/18 08:57 Alkaline Phosphatase 69 IU/L (42-121) 04/02/18 08:57 Lactate Dehydrogenase 157 IU/L (91-225) 04/01/18 17:15 Total Protein 6.3 g/dL (6.7-8.2) L 04/02/18 08:57 Albumin 2.8 g/dL (3.2-5.5) L 04/02/18 08:57 Globulin 3.5 g/dL (2.1-4.2) 04/02/18 08:57 Albumin/Globulin Ratio 0.8 (1.0-2.2) L 04/02/18 08:57 Urine Color YELLOW 03/31/18 10:41 Urine Clarity CLEAR (CLEAR) 03/31/18 10:41 Urine pH 6.0 PH (5.0-7.5) 03/31/18 10:41 Ur Specific [place] 1.020 (1.002-1.030) 03/31/18 10:41 Urine Protein NEGATIVE mg/dL (NEGATIVE) 03/31/18 10:41 Urine Glucose (UA) NEGATIVE mg/dL (NEGATIVE) 03/31/18 10:41 Urine Ketones NEGATIVE mg/dL (NEGATIVE) 03/31/18 10:41 Urine Occult Blood TRACE-LYSE (NEGATIVE) 03/31/18 10:41 Urine Nitrite NEGATIVE (NEGATIVE) 03/31/18 10:41 Urine Bilirubin NEGATIVE (NEGATIVE) 03/31/18 10:41 Urine Urobilinogen 0.2 (NORMAL) E.U./dL (NORMAL) 03/31/18 10:41 Ur Leukocyte Esterase NEGATIVE (NEGATIVE) 03/31/18 10:41 Ur Microscopic Review NOT INDICATED 03/31/18 10:41 Urine Culture Comments NOT INDICATED 03/31/18 10:41 Fluid Source PLEURAL 04/01/18 12:00 Fluid Color YELLOW 04/01/18 12:00 Fluid Clarity HAZY 04/01/18 12:00 Fluid WBC 2492 /mm^3 04/01/18 12:00 Fluid RBC 6558 /mm^3 04/01/18 12:00 Fluid Neutrophils % 92 % 04/01/18 12:00 Fluid Lymphocytes % 4 04/01/18 12:00 Fluid Monocytes % 5 % 04/01/18 12:00 Fluid Eosinophils % 0 % 04/01/18 12:00 Fluid Macrophages % 2 % 04/01/18 12:00 Fld Mesothelial Cell % 2 % 04/01/18 12:00 ABX Reporting Has patient been on IV antibiotics over the past 48 hours?: Yes Current Medications - Current Medications Current Medications: Active Medications Generic Name Dose Route Start Last Admin Trade Name Freq PRN Reason Stop Dose Admin Acetaminophen 650 mg 03/29/18 10:44 04/01/18 20:33 Tylenol PO 650 mg Q4HR PRN Administration Pain 1 to 4 Albuterol/Ipratropium 3 ml 03/29/18 10:44 04/02/18 07:28 Duoneb INH 3 ml Q4HR PRN Administration Wheezing Amlodipine Besylate 2.5 mg 03/30/18 09:00 04/02/18 08:53 Norvasc PO 2.5 mg DAILY ZAY Administration Aspirin 81 mg 03/30/18 09:00 04/02/18 08:54 [facility] Aspirin PO 81 mg DAILY ZAY Administration Atorvastatin Calcium 10 mg 03/29/18 21:00 04/01/18 20:08 Lipitor PO 10 mg QPM ZAY Administration Bacitracin 1 packet 04/01/18 10:45 Bacitracin TOP PRN PRN Skin Care Budesonide 0.5 mg 03/29/18 19:00 04/02/18 07:28 Pulmicort INH 0.5 mg RTBID ZAY Administration Cholecalciferol 400 unit 03/29/18 21:00 04/02/18 08:53 Vitamin D3 PO 400 unit BID ZAY Administration Donepezil HCl 10 mg 03/30/18 09:00 04/02/18 08:53 Aricept PO 10 mg DAILY ZAY Administration Enoxaparin Sodium 40 mg 03/30/18 09:00 04/02/18 08:54 Lovenox SUBQ 40 mg DAILY ZAY Administration Famotidine 20 mg 03/29/18 21:00 04/01/18 20:08 Pepcid PO 20 mg QPM ZAY Administration Levofloxacin 750 mg in 150 mls @ 100 mls/hr 03/31/18 16:00 03/31/18 22:22 Levaquin 750 Mg/150 Ml IV Infused Q48H ZAY Infusion Sodium Chloride 1,000 mls @ 0 mls/hr 04/02/18 10:00 04/02/18 12:46 Normal Saline 0.9% IV 0 mls/hr .Q0M ZAY Infusion TKO Ibuprofen 600 mg 03/29/18 10:44 04/02/18 02:55 Motrin PO 600 mg Q6HR PRN Administration Pain 1 to 4 Lisinopril 20 mg 03/29/18 21:00 04/02/18 08:53 Zestril PO 20 mg BID ZAY Administration Memantine 10 mg 03/30/18 09:00 04/02/18 08:52 Namenda PO 10 mg DAILY ZAY Administration Ondansetron HCl 4 mg 03/29/18 10:44 Zofran Inj IVP Q6HR PRN Nausea / Vomiting Oxycodone HCl 5 mg 03/29/18 10:44 Roxicodone PO Q4HR PRN Pain 5 to 7 Polyethylene Glycol 17 gm 03/30/18 09:00 04/02/18 08:52 Miralax PO 17 gm DAILY ZAY Administration Potassium Chloride 40 meq 04/02/18 11:00 04/02/18 10:39 K-Dur PO 40 meq BID ZAY Administration Prochlorperazine Edisylate 10 mg 03/29/18 10:44 Compazine Inj IVP Q6HR PRN Nausea / Vomiting Promethazine HCl 25 mg 03/29/18 10:44 Phenergan Inj IM Q6HR PRN Nausea / Vomiting Saccharomyces Boulardii 250 mg 03/29/18 17:00 04/02/18 08:54 Florastor PO 250 mg BIDWM ZAY Administration Sodium Chloride 10 ml 03/29/18 10:44 03/31/18 21:00 Normal Saline Flush 0.9% IVP 10 ml PRN PRN Administration NEEDED PER PROVIDER ORDERS Sodium Chloride 10 ml 03/29/18 17:00 04/02/18 08:54 Normal Saline Flush 0.9% IVP 10 ml 0100,0900,1700 ZAY Administration Triamterene/HCTZ 2 cap 03/30/18 09:00 04/02/18 08:53 Dyazide PO 2 cap DAILY ZAY Administration Aspirin 81 mg PO DAILY 03/28/18 Atorvastatin [Lipitor] 10 mg PO QPM 03/28/18 Donepezil [Aricept] 10 mg PO QPM 03/28/18 Ipratropium [Atrovent] 1 puffs INH BID 03/28/18 Memantine HCl 10 mg PO DAILY 03/28/18 Triamterene/Hydrochlorothiazid [Triamterene-Hctz 75-50 mg Tab] 1 tab PO DAILY 03/28/18 Albuterol Sulf [Ventolin Hfa Inhaler] 2 puffs INH QID PRN 03/29/18 Calcium Carbonate/Vitamin D3 [Calcium 500-Vit D3 200 Tablet] 1 tab PO TID 03/29/18 Cholecalciferol (Vitamin D3) [Vitamin D3] 400 unit PO BID 03/29/18 Fluticasone 110 Mcg [Flovent] 2 puffs INH BID 03/29/18 Lisinopril 20 mg PO BID 03/29/18 amLODIPine [Norvasc] 2.5 mg PO DAILY 03/29/18
[2018-04-02] MEDS: levoFLOXacin 750 MG/150 ML 750 MG/150 ML BAG IV SCH (16:19)
[2018-04-02] MEDS: FAMOTIDINE 20 MG TABLET PO SCH (20:34)
[2018-04-02] MEDS: ATORVASTATIN 10 MG TABLET PO SCH (20:34)
[2018-04-02] MEDS ORDERED: levoFLOXacin 250 MG TABLET PO SCH (23:00)
[2018-04-03] MEDS: SODIUM CHLORIDE FLUSH 0.9% 10 ML SYRINGE IVP SCH ×4 (04:00→17:10)
[2018-04-03 05:56] LABS: BASOPHILS % (AUTO) 0.2 %; EOSINOPHILS % (AUTO) 0.7 %; HGB - HEMOGLOBIN 10.9 g/dL (12.0-16.0); LYMPHOCYTES % (AUTO) 13.3 %; MEAN CORPUSCULAR HEMOGLOBIN 27.7 pg (27.0-31.0); MEAN CORPUSCULAR HGB CONC 32.4 g/dL (32.0-36.0); MEAN CORPUSCULAR VOLUME 85.7 fL (81.0-99.0); MEAN PLATELET VOLUME 7.4 fL (7.9-10.8); MONOCYTES % (AUTO) 9.9 %; NEUTROPHILS % (AUTO) 75.9 %; PLT - PLATELET COUNT 249 10^3/uL (130-450); RED BLOOD COUNT 3.94 10^6/uL (4.20-5.40); RED CELL DISTRIBUTION WIDTH 14.2 % (12.0-15.0); WHITE BLOOD COUNT 11.3 x10^3/uL (4.8-10.8)
[2018-04-03 05:58] LABS: ABNORMAL LYMPHS % (MANUAL) 0 %
[2018-04-03 06:02] LABS: ALBUMIN 2.5 g/dL (3.2-5.5); ALBUMIN/GLOBULIN RATIO 0.8 (1.0-2.2); ALKALINE PHOSPHATASE 64 IU/L (42-121); ALT ALANINE AMINOTRANSFERASE 35 IU/L (10-60); AST ASPARTATE AMINOTRANSFERASE 32 IU/L (10-42); BILIRUBIN,TOTAL 0.6 mg/dL (0.2-1.0); BUN - BLOOD UREA NITROGEN 17 mg/dL (6-20); CALCIUM 8.5 mg/dL (8.5-10.3); CARBON DIOXIDE - CO2 29 mmol/L (21-32); CHLORIDE 91 mmol/L (101-111); CREATININE 0.8 mg/dL (0.4-1.0); GFR - MDRD 68 (>89); GLUCOSE 156 mg/dL (70-100); MAGNESIUM 1.6 mg/dL (1.7-2.8); PHOSPHORUS 3.4 mg/dL (2.5-4.6); SODIUM 126 mmol/L (135-145); TOTAL PROTEIN 5.8 g/dL (6.7-8.2)
[2018-04-03 06:28] LABS: BAND NEUTROPHILS % (MANUAL) 1 %; LYMPHOCYTES # (MANUAL) 1.5 10^3/uL (1.5-3.5); LYMPHOCYTES % (MANUAL) 13 %; MONOCYTES # (MANUAL) 0.6 10^3/uL (0.0-1.0); NEUTROPHILS # (MANUAL) 9.3 10^3/uL (1.5-6.6); NEUTROPHILS % (MANUAL) 81 %; PLATELET ESTIMATE, MANUAL NORMAL (130-450,000) (NORMAL); RBC MORPHOLOGY (MULTIPLE) NORMAL APPEARANCE (NORMAL)
[2018-04-03 06:33] LABS: DIFFERENTIAL COMMENT MANUAL DIFFERENTIAL
[2018-04-03] MEDS: BUDESONIDE 0.5 MG/2 ML NEB INH SCH ×2 (07:19→18:14)
[2018-04-03] MEDS: ENOXAPARIN 40 MG/0.4 ML SYRINGE SUBQ SCH (08:48)
[2018-04-03] MEDS: amLODIPine 5 MG TABLET PO SCH (08:49)
[2018-04-03] MEDS: POLYETHYLENE GLYCOL 3350 17 GM PACKET PO SCH (08:49)
[2018-04-03] MEDS: TRIAMT/HCTZ 37.5 MG/25 MG CAPSULE PO SCH (08:49)
[2018-04-03] MEDS: SODIUM CHLORIDE FLUSH 0.9% 10 ML SYRINGE IVP PRN (08:50)
[2018-04-03] MEDS: SACCHAROMYCES BOULARDII 250 MG CAPSULE PO SCH ×2 (08:50→17:10)
[2018-04-03] MEDS: LISINOPRIL 20 MG TABLET PO SCH ×2 (08:50→20:11)
[2018-04-03] MEDS: POTASSIUM CHLORIDE 20 MEQ TABLET PO SCH (08:50)
[2018-04-03] MEDS: ASPIRIN CHEW 81 MG TABLET PO SCH (08:50)
[2018-04-03] MEDS: CHOLECALCIFEROL 400 UNIT TABLET PO SCH ×2 (08:50→20:11)
[2018-04-03] MEDS: DONEPEZIL 5 MG TABLET PO SCH (08:50)
[2018-04-03] MEDS: MEMANTINE 5 MG TABLET PO SCH (08:50)
--- NOTE | 2018-04-03 15:47 | PROVIDER PROGRESS NOTE ---
Assessment/Plan - Problem List (1) Bacteremia due to Staphylococcus aureus Assessment/Plan: The source of fevers and pos blood cultures x [address] Rincon called and left a message yesterday with ID at and I am awaiting a call back, to discuss management. Continue iv Levoflox antibiotics, possibly for a 2 week course. (2) Pleural effusion Assessment/Plan: S/P thoracentesis 2 days ago. No growth by culture data, as of yet. All other results are still pending. (3) Pneumonia Qualifiers: Laterality: left Lung location: lower lobe of lung Assessment/Plan: Respiratory status has improved. Continue iv Levoflox antibiotics. (4) Hyponatremia Assessment/Plan: Na has dropped today. Will stop Triampterene for BP control, and increase Amlodipine if needed. Will monitor BMP daily. (5) UTI (urinary tract infection) Qualifiers: Urinary tract infection type: acute cystitis Hematuria presence: without hematuria Qualified Code(s): N30.00 - Acute cystitis without hematuria Assessment/Plan: Pt on Levaquin for abnormal U/A. Continue for a 7 day course. (6) Dementia Qualifiers: Dementia type: unspecified type Dementia behavioral disturbance: without behavioral disturbance Qualified Code(s): F03.90 - Unspecified dementia without behavioral disturbance Assessment/Plan: Stable. Continue Namenda and Aricept. - Current Meds Current Meds: Current Medications Generic Name Dose Route Start Last Admin Trade Name Freq PRN Reason Stop Dose Admin Acetaminophen 650 mg 03/29/18 10:44 04/01/18 20:33 Tylenol PO 650 mg Q4HR PRN Administration Pain 1 to 4 Albuterol/Ipratropium 3 ml 03/29/18 10:44 04/02/18 07:28 Duoneb INH 3 ml Q4HR PRN Administration Wheezing Amlodipine Besylate 2.5 mg 03/30/18 09:00 04/03/18 08:49 Norvasc PO 2.5 mg DAILY ZAY Administration Aspirin 81 mg 03/30/18 09:00 04/03/18 08:50 [facility] Aspirin PO 81 mg DAILY ZAY Administration Atorvastatin Calcium 10 mg 03/29/18 21:00 04/02/18 20:34 Lipitor PO 10 mg QPM ZAY Administration Budesonide 0.5 mg 03/29/18 19:00 04/03/18 07:19 Pulmicort INH 0.5 mg RTBID ZAY Administration Cholecalciferol 400 unit 03/29/18 21:00 04/03/18 08:50 Vitamin D3 PO 400 unit BID ZAY Administration Donepezil HCl 10 mg 03/30/18 09:00 04/03/18 08:50 Aricept PO 10 mg DAILY ZAY Administration Enoxaparin Sodium 40 mg 03/30/18 09:00 04/03/18 08:48 Lovenox SUBQ 40 mg DAILY ZAY Administration Famotidine 20 mg 03/29/18 21:00 04/02/18 20:34 Pepcid PO 20 mg QPM ZAY Administration Levofloxacin 750 mg in 150 mls @ 100 mls/hr 03/31/18 16:00 04/02/18 18:00 Levaquin 750 Mg/150 Ml IV Infused Q48H ZAY Infusion Sodium Chloride 1,000 mls @ 0 mls/hr 04/02/18 10:00 04/02/18 18:38 Normal Saline 0.9% IV Infused .Q0M ZAY Infusion TKO Ibuprofen 600 mg 03/29/18 10:44 04/02/18 02:55 Motrin PO 600 mg Q6HR PRN Administration Pain 1 to 4 Lisinopril 20 mg 03/29/18 21:00 04/03/18 08:50 Zestril PO 20 mg BID ZAY Administration Memantine 10 mg 03/30/18 09:00 04/03/18 08:50 Namenda PO 10 mg DAILY ZAY Administration Polyethylene Glycol 17 gm 03/30/18 09:00 04/03/18 08:49 Miralax PO 17 gm DAILY ZAY Administration Potassium Chloride 40 meq 04/02/18 11:00 04/03/18 08:50 K-Dur PO 40 meq BID ZAY Administration Saccharomyces Boulardii 250 mg 03/29/18 17:00 04/03/18 08:50 Florastor PO 250 mg BIDWM ZAY Administration Sodium Chloride 10 ml 03/29/18 10:44 04/03/18 08:50 Normal Saline Flush 0.9% IVP 10 ml PRN PRN Administration NEEDED PER PROVIDER ORDERS Sodium Chloride 10 ml 03/29/18 17:00 04/03/18 09:02 Normal Saline Flush 0.9% IVP Not Given 0100,0900,1700 [facility] Triamterene/HCTZ 2 cap 03/30/18 09:00 04/03/18 08:49 Dyazide PO 2 cap DAILY ZAY Administration - Lab Result Fish Bone Diagrams: 04/03/18 05:35 04/03/18 05:35 Subjective - Subjective Patient Reports: No Complaints Nursing Reports: Other (Patient is only oriented to self) Objective Vital Signs: Vital Signs - 24 hr 04/02/18 04/02/18 04/03/18 15:47 20:35 00:15 Temperature 36.4 C L 37.1 C Heart Rate Heart Rate [ 72 73 67 Brachial] Respiratory 20 18 Rate Blood Pressure [Left Brachial artery] Blood Pressure 147/47 H 170/66 H 140/50 H [Right Brachial artery] O2 Saturation 95 94 04/03/18 04/03/18 04/03/18 07:25 08:00 15:23 Temperature 36.8 C 36.8 C Heart Rate 75 Heart Rate [ 72 84 Brachial] Respiratory 16 22 20 Rate Blood Pressure 144/62 H 143/64 H [Left Brachial artery] Blood Pressure [Right Brachial artery] O2 Saturation 94 95 Oxygen O2 Source Room air I&O (Last 24 Hrs): Intake and Output Totals x24h 04/01/18 04/02/18 04/03/18 23:59 23:59 23:59 Intake Total 2531.25 1708.667 810 Output Total 1750 2850 1850 Balance 781.25 -1141.333 -1040 General: Alert HEENT: Mucous membr. moist/pink Neck: Supple Neuro: Non Focal Cardiovascular: Regular rate, No murmurs Respiratory: No respiratory distress Abdomen: Soft Extremities: No edema - Results Results: Laboratory Results WBC 11.3 x10^3/uL (4.8-10.8) H 04/03/18 05:35 RBC 3.94 10^6/uL (4.20-5.40) L 04/03/18 05:35 Hgb 10.9 g/dL (12.0-16.0) L 04/03/18 05:35 Hct 33.7 % (37.0-47.0) L 04/03/18 05:35 MCV 85.7 fL (81.0-99.0) 04/03/18 05:35 MCH 27.7 pg (27.0-31.0) 04/03/18 05:35 MCHC 32.4 g/dL (32.0-36.0) 04/03/18 05:35 RDW 14.2 % (12.0-15.0) 04/03/18 05:35 Plt Count 249 10^3/uL (130-450) 04/03/18 05:35 MPV 7.4 fL (7.9-10.8) L 04/03/18 05:35 Neut # (Auto) [employer] 04/03/18 05:35 Lymph # (Auto) [employer] 04/03/18 05:35 [place] # (Auto) [employer] 04/03/18 05:35 Eos # (Auto) [employer] 04/03/18 05:35 Baso # (Auto) [employer] 04/03/18 05:35 Absolute Nucleated RBC [employer] 04/03/18 05:35 Total Counted 100 04/03/18 05:35 Band Neuts % (Manual) 1 % (0-10) 04/03/18 05:35 Abnorm Lymph % (Manual) 0 % 04/03/18 05:35 Nucleated RBC % [employer] 04/03/18 05:35 Neutrophils # (Manual) 9.3 10^3/uL (1.5-6.6) H 04/03/18 05:35 Lymphocytes # (Manual) 1.5 10^3/uL (1.5-3.5) 04/03/18 05:35 Monocytes # (Manual) 0.6 10^3/uL (0.0-1.0) 04/03/18 05:35 Eosinophils # (Manual) 0.0 10^3/uL (0-0.7) 04/03/18 05:35 Basophils # (Manual) 0.0 10^3/uL (0-0.1) 04/03/18 05:35 Differential Comment MANUAL DIFFERENTIAL 04/03/18 05:35 Platelet Estimate NORMAL (130-450,000) (NORMAL) 04/03/18 05:35 RBC Morph Micro Appear NORMAL APPEARANCE (NORMAL) 04/03/18 05:35 PT 14.7 secs (9.9-12.6) H 04/01/18 09:00 INR 1.3 (0.8-1.2) H 04/01/18 09:00 Sodium 126 mmol/L (135-145) L 04/03/18 05:35 Potassium 3.9 mmol/L (3.5-5.0) 04/03/18 05:35 Chloride 91 mmol/L (101-111) L 04/03/18 05:35 Carbon Dioxide 29 mmol/L (21-32) 04/03/18 05:35 Anion Gap 6.0 (6-13) 04/03/18 05:35 BUN 17 mg/dL (6-20) 04/03/18 05:35 Creatinine 0.8 mg/dL (0.4-1.0) 04/03/18 05:35 Estimated GFR (MDRD) 68 (>89) L 04/03/18 05:35 Glucose 156 mg/dL (70-100) H 04/03/18 05:35 Lactic Acid 1.5 mmol/L (0.5-2.2) 03/29/18 10:34 Calcium 8.5 mg/dL (8.5-10.3) 04/03/18 05:35 Ionized Calcium NO 04/03/18 05:35 Phosphorus 3.4 mg/dL (2.5-4.6) 04/03/18 05:35 Magnesium 1.6 mg/dL (1.7-2.8) L 04/03/18 05:35 Total Bilirubin 0.6 mg/dL (0.2-1.0) 04/03/18 05:35 AST 32 IU/L (10-42) 04/03/18 05:35 ALT 35 IU/L (10-60) 04/03/18 05:35 Alkaline Phosphatase 64 IU/L (42-121) 04/03/18 05:35 Lactate Dehydrogenase 157 IU/L (91-225) 04/01/18 17:15 Total Protein 5.8 g/dL (6.7-8.2) L 04/03/18 05:35 Albumin 2.5 g/dL (3.2-5.5) L 04/03/18 05:35 Globulin 3.3 g/dL (2.1-4.2) 04/03/18 05:35 Albumin/Globulin Ratio 0.8 (1.0-2.2) L 04/03/18 05:35 Urine Color YELLOW 03/31/18 10:41 Urine Clarity CLEAR (CLEAR) 03/31/18 10:41 Urine pH 6.0 PH (5.0-7.5) 03/31/18 10:41 Ur Specific [place] 1.020 (1.002-1.030) 03/31/18 10:41 Urine Protein NEGATIVE mg/dL (NEGATIVE) 03/31/18 10:41 Urine Glucose (UA) NEGATIVE mg/dL (NEGATIVE) 03/31/18 10:41 Urine Ketones NEGATIVE mg/dL (NEGATIVE) 03/31/18 10:41 Urine Occult Blood TRACE-LYSE (NEGATIVE) 03/31/18 10:41 Urine Nitrite NEGATIVE (NEGATIVE) 03/31/18 10:41 Urine Bilirubin NEGATIVE (NEGATIVE) 03/31/18 10:41 Urine Urobilinogen 0.2 (NORMAL) E.U./dL (NORMAL) 03/31/18 10:41 Ur Leukocyte Esterase NEGATIVE (NEGATIVE) 03/31/18 10:41 Ur Microscopic Review NOT INDICATED 03/31/18 10:41 Urine Culture Comments NOT INDICATED 03/31/18 10:41 Fluid Source PLEURAL 04/01/18 12:00 Fluid Color YELLOW 04/01/18 12:00 Fluid Clarity HAZY 04/01/18 12:00 Fluid WBC 2492 /mm^3 04/01/18 12:00 Fluid RBC 6558 /mm^3 04/01/18 12:00 Fluid Neutrophils % 92 % 04/01/18 12:00 Fluid Lymphocytes % 4 04/01/18 12:00 Fluid Monocytes % 5 % 04/01/18 12:00 Fluid Eosinophils % 0 % 04/01/18 12:00 Fluid Macrophages % 2 % 04/01/18 12:00 Fld Mesothelial Cell % 2 % 04/01/18 12:00 ABX Reporting Has patient been on IV antibiotics over the past 48 hours?: Yes
[2018-04-03] MEDS: ATORVASTATIN 10 MG TABLET PO SCH (20:11)
[2018-04-03] MEDS: FAMOTIDINE 20 MG TABLET PO SCH (20:11)
[2018-04-04] MEDS: SODIUM CHLORIDE FLUSH 0.9% 10 ML SYRINGE IVP SCH ×3 (00:16→17:20)
[2018-04-04 05:56] LABS: BASOPHILS % (AUTO) 0.4 %; EOSINOPHILS % (AUTO) 1.5 %; LYMPHOCYTES % (AUTO) 18.7 %; MEAN CORPUSCULAR HEMOGLOBIN 27.9 pg (27.0-31.0); MEAN CORPUSCULAR HGB CONC 32.7 g/dL (32.0-36.0); MEAN CORPUSCULAR VOLUME 85.5 fL (81.0-99.0); MEAN PLATELET VOLUME 7.4 fL (7.9-10.8); MONOCYTES % (AUTO) 12.4 %; PLT - PLATELET COUNT 318 10^3/uL (130-450); RED BLOOD COUNT 3.94 10^6/uL (4.20-5.40); RED CELL DISTRIBUTION WIDTH 14.1 % (12.0-15.0); WHITE BLOOD COUNT 9.1 x10^3/uL (4.8-10.8)
[2018-04-04 06:09] LABS: ABNORMAL LYMPHS % (MANUAL) 0 %
[2018-04-04 06:13] LABS: ALBUMIN 2.8 g/dL (3.2-5.5); ALBUMIN/GLOBULIN RATIO 0.8 (1.0-2.2); ALKALINE PHOSPHATASE 65 IU/L (42-121); ALT ALANINE AMINOTRANSFERASE 38 IU/L (10-60); AST ASPARTATE AMINOTRANSFERASE 39 IU/L (10-42); BILIRUBIN,TOTAL 0.5 mg/dL (0.2-1.0); BUN - BLOOD UREA NITROGEN 16 mg/dL (6-20); CALCIUM 9.1 mg/dL (8.5-10.3); CARBON DIOXIDE - CO2 29 mmol/L (21-32); CHLORIDE 91 mmol/L (101-111); CREATININE 0.8 mg/dL (0.4-1.0); GFR - MDRD 68 (>89); GLUCOSE 129 mg/dL (70-100); MAGNESIUM 1.7 mg/dL (1.7-2.8); PHOSPHORUS 4.2 mg/dL (2.5-4.6); SODIUM 129 mmol/L (135-145); TOTAL PROTEIN 6.4 g/dL (6.7-8.2)
[2018-04-04 07:15] LABS: BAND NEUTROPHILS % (MANUAL) 3 %; DIFFERENTIAL COMMENT MANUAL DIFFERENTIAL; EOSINOPHILS # (MANUAL) 0.2 10^3/uL (0-0.7); LYMPHOCYTES # (MANUAL) 1.5 10^3/uL (1.5-3.5); LYMPHOCYTES % (MANUAL) 17 %; MONOCYTES # (MANUAL) 1.1 10^3/uL (0.0-1.0); NEUTROPHILS # (MANUAL) 6.3 10^3/uL (1.5-6.6); NEUTROPHILS % (MANUAL) 66 %; PLATELET ESTIMATE, MANUAL NORMAL (130-450,000) (NORMAL); RBC MORPHOLOGY (MULTIPLE) NORMAL APPEARANCE (NORMAL)
[2018-04-04] MEDS: BUDESONIDE 0.5 MG/2 ML NEB INH SCH ×2 (08:15→20:29)
[2018-04-04] MEDS: ENOXAPARIN 40 MG/0.4 ML SYRINGE SUBQ SCH (09:00)
[2018-04-04] MEDS: POLYETHYLENE GLYCOL 3350 17 GM PACKET PO SCH (09:00)
[2018-04-04] MEDS: SACCHAROMYCES BOULARDII 250 MG CAPSULE PO SCH ×2 (09:01→17:20)
[2018-04-04] MEDS: CHOLECALCIFEROL 400 UNIT TABLET PO SCH ×2 (09:01→20:47)
[2018-04-04] MEDS: ASPIRIN CHEW 81 MG TABLET PO SCH (09:01)
[2018-04-04] MEDS: amLODIPine 5 MG TABLET PO SCH (09:01)
[2018-04-04] MEDS: MEMANTINE 5 MG TABLET PO SCH (09:01)
[2018-04-04] MEDS: LISINOPRIL 20 MG TABLET PO SCH ×2 (09:01→20:47)
[2018-04-04] MEDS: DONEPEZIL 5 MG TABLET PO SCH (09:01)
[2018-04-04] MEDS: ATORVASTATIN 10 MG TABLET PO SCH (20:47)
[2018-04-04] MEDS: FAMOTIDINE 20 MG TABLET PO SCH (20:47)
[2018-04-05] MEDS: SODIUM CHLORIDE FLUSH 0.9% 10 ML SYRINGE IVP SCH ×4 (02:51→22:38)
[2018-04-05 06:06] LABS: BASOPHILS % (AUTO) 0.5 %; MEAN PLATELET VOLUME 7.1 fL (7.9-10.8); RED CELL DISTRIBUTION WIDTH 14.1 % (12.0-15.0)
[2018-04-05 06:17] LABS: EOSINOPHILS % (AUTO) 1.5 %; LYMPHOCYTES % (AUTO) 22.4 %; MEAN CORPUSCULAR HEMOGLOBIN 27.9 pg (27.0-31.0); MEAN CORPUSCULAR HGB CONC 32.5 g/dL (32.0-36.0); MONOCYTES % (AUTO) 9.9 %; NEUTROPHILS % (AUTO) 65.7 %; PLT - PLATELET COUNT 381 10^3/uL (130-450); RED BLOOD COUNT 3.92 10^6/uL (4.20-5.40); WHITE BLOOD COUNT 9.5 x10^3/uL (4.8-10.8)
[2018-04-05 06:19] LABS: ABNORMAL LYMPHS % (MANUAL) 0 %
[2018-04-05 06:30] LABS: ALBUMIN 2.8 g/dL (3.2-5.5); ALBUMIN/GLOBULIN RATIO 0.8 (1.0-2.2); ALKALINE PHOSPHATASE 59 IU/L (42-121); ALT ALANINE AMINOTRANSFERASE 40 IU/L (10-60); AST ASPARTATE AMINOTRANSFERASE 39 IU/L (10-42); BILIRUBIN,TOTAL 0.4 mg/dL (0.2-1.0); BUN - BLOOD UREA NITROGEN 15 mg/dL (6-20); CARBON DIOXIDE - CO2 31 mmol/L (21-32); CHLORIDE 93 mmol/L (101-111); CREATININE 0.8 mg/dL (0.4-1.0); GFR - MDRD 68 (>89); GLUCOSE 136 mg/dL (70-100); MAGNESIUM 1.7 mg/dL (1.7-2.8); PHOSPHORUS 3.9 mg/dL (2.5-4.6); SODIUM 131 mmol/L (135-145); TOTAL PROTEIN 6.1 g/dL (6.7-8.2)
[2018-04-05 07:14] LABS: BAND NEUTROPHILS % (MANUAL) 6 %; DIFFERENTIAL COMMENT MANUAL DIFFERENTIAL; EOSINOPHILS # (MANUAL) 0.1 10^3/uL (0-0.7); LYMPHOCYTES # (MANUAL) 1.7 10^3/uL (1.5-3.5); LYMPHOCYTES % (MANUAL) 18 %; METAMYELOCYTES % (MANUAL) 1 %; MONOCYTES # (MANUAL) 0.4 10^3/uL (0.0-1.0); MYELOCYTES % (MANUAL) 1 %; NEUTROPHILS # (MANUAL) 7.1 10^3/uL (1.5-6.6); NEUTROPHILS % (MANUAL) 69 %; PLATELET ESTIMATE, MANUAL NORMAL (130-450,000) (NORMAL); RBC MORPHOLOGY (MULTIPLE) NORMAL APPEARANCE (NORMAL)
[2018-04-05] MEDS: BUDESONIDE 0.5 MG/2 ML NEB INH SCH ×2 (07:58→20:40)
[2018-04-05] MEDS ORDERED: levoFLOXacin 750 MG/150 ML 750 MG/150 ML BAG IV SCH (09:00)
[2018-04-05] MEDS: ENOXAPARIN 40 MG/0.4 ML SYRINGE SUBQ SCH (09:05)
[2018-04-05] MEDS: MEMANTINE 5 MG TABLET PO SCH (09:05)
[2018-04-05] MEDS: SACCHAROMYCES BOULARDII 250 MG CAPSULE PO SCH ×2 (09:06→16:39)
[2018-04-05] MEDS: DONEPEZIL 5 MG TABLET PO SCH (09:06)
[2018-04-05] MEDS: ASPIRIN CHEW 81 MG TABLET PO SCH (09:06)
[2018-04-05] MEDS: amLODIPine 5 MG TABLET PO SCH (09:06)
[2018-04-05] MEDS: POLYETHYLENE GLYCOL 3350 17 GM PACKET PO SCH (09:06)
[2018-04-05] MEDS: LISINOPRIL 20 MG TABLET PO SCH ×2 (09:06→22:41)
[2018-04-05] MEDS: CHOLECALCIFEROL 400 UNIT TABLET PO SCH ×2 (09:06→22:42)
[2018-04-05] MEDS: SODIUM CHLORIDE FLUSH 0.9% 10 ML SYRINGE IVP PRN ×2 (12:41→15:11)
[2018-04-05] MEDS: ceFAZolin 1 GM in SODIUM CHLORIDE 0.9% MINIBAG 100 ML IV SCH ×2 (12:41→22:37)
[2018-04-05] MEDS ORDERED: LORazepam 0.5 MG TABLET PO SCH (14:35)
[2018-04-05] MEDS ORDERED: LORazepam 2 MG/ML VIAL IVP SCH (14:57)
[2018-04-05] MEDS ORDERED: IOVERSOL 320 100 ML VIAL IVP ONE ×2 (15:16→19:36)
--- NOTE | 2018-04-05 17:08 | PROVIDER PROGRESS NOTE ---
Assessment/Plan - Problem List (1) Bacteremia due to Staphylococcus aureus Assessment/Plan: I spoke to Dr Soraya Mcneal, ABHAY Woodard at , and reevviewed entire case with klarissa. She recommended imaging of the bilateral knee replacements and also the entire spine. Will get CT scans of those area. She also recommended changing Levaquin to Cefazolin iv. (2) Pleural effusion Assessment/Plan: No growth from pleural fluid to date. No resp sx. (3) Pneumonia Qualifiers: Laterality: left Lung location: lower lobe of lung Assessment/Plan: No respiratory symptoms. Will continue management. (4) Hyponatremia Assessment/Plan: Improved. (5) UTI (urinary tract infection) Qualifiers: Urinary tract infection type: acute cystitis Hematuria presence: without hematuria Qualified Code(s): N30.00 - Acute cystitis without hematuria Assessment/Plan: Continue antibiotics as above. (6) Dementia Qualifiers: Dementia type: unspecified type Dementia behavioral disturbance: without behavioral disturbance Qualified Code(s): F03.90 - Unspecified dementia without behavioral disturbance Assessment/Plan: Stable. Continue meds. - Current Meds Current Meds: Current Medications Generic Name Dose Route Start Last Admin Trade Name Freq PRN Reason Stop Dose Admin Acetaminophen 650 mg 03/29/18 10:44 04/01/18 20:33 Tylenol PO 650 mg Q4HR PRN Administration Pain 1 to 4 Albuterol/Ipratropium 3 ml 03/29/18 10:44 04/02/18 07:28 Duoneb INH 3 ml Q4HR PRN Administration Wheezing Amlodipine Besylate 2.5 mg 03/30/18 09:00 04/05/18 09:06 Norvasc PO 2.5 mg DAILY ZAY Administration Aspirin 81 mg 03/30/18 09:00 04/05/18 09:06 [facility] Aspirin PO 81 mg DAILY ZAY Administration Atorvastatin Calcium 10 mg 03/29/18 21:00 04/04/18 20:47 Lipitor PO 10 mg QPM ZAY Administration Budesonide 0.5 mg 03/29/18 19:00 04/05/18 07:58 Pulmicort INH 0.5 mg RTBID ZAY Administration Cholecalciferol 400 unit 03/29/18 21:00 04/05/18 09:06 Vitamin D3 PO 400 unit BID ZAY Administration Donepezil HCl 10 mg 03/30/18 09:00 04/05/18 09:06 Aricept PO 10 mg DAILY ZAY Administration Enoxaparin Sodium 40 mg 03/30/18 09:00 04/05/18 09:05 Lovenox SUBQ 40 mg DAILY ZAY Administration Famotidine 20 mg 03/29/18 21:00 04/04/18 20:47 Pepcid PO 20 mg QPM ZAY Administration Sodium Chloride 1,000 mls @ 0 mls/hr 04/02/18 10:00 04/02/18 18:38 Normal Saline 0.9% IV Infused .Q0M ZAY Infusion TKO Cefazolin Sodium 1 gm/ Sodium 100 mls @ 200 mls/hr 04/05/18 12:00 04/05/18 13:40 Chloride IV Infused Q8H ZAY Infusion Ibuprofen 600 mg 03/29/18 10:44 04/02/18 02:55 Motrin PO 600 mg Q6HR PRN Administration Pain 1 to 4 Lisinopril 20 mg 03/29/18 21:00 04/05/18 09:06 Zestril PO 20 mg BID ZAY Administration Memantine 10 mg 03/30/18 09:00 04/05/18 09:05 Namenda PO 10 mg DAILY ZAY Administration Polyethylene Glycol 17 gm 03/30/18 09:00 04/05/18 09:06 Miralax PO Not Given DAILY ZAY Saccharomyces Boulardii 250 mg 03/29/18 17:00 04/05/18 16:39 Florastor PO 250 mg BIDWM ZAY Administration Sodium Chloride 10 ml 03/29/18 10:44 04/05/18 15:11 Normal Saline Flush 0.9% IVP 10 ml PRN PRN Administration NEEDED PER PROVIDER ORDERS Sodium Chloride 10 ml 03/29/18 17:00 04/05/18 16:39 Normal Saline Flush 0.9% IVP 10 ml 0100,0900,1700 ZAY Administration - Lab Result Fish Bone Diagrams: 04/05/18 05:48 04/05/18 05:48 - Additional Planning My Orders: My Active Orders 04/05/18 11:05 PICC Line Care [RC] Q1D PICC Line Insert [RC] .ONCE 04/05/18 12:00 ceFAZolin [Ancef] 1 gm Sodium Chloride 0.9% Minibag [Normal Saline 0.9% M inibag] 100 ml IV Q8H 04/05/18 12:21 Cervical Spine W/ [CT] Routine Lumbar Spine W/ [CT] Routine Thoracic Spine W/ [CT] Routine 04/05/18 12:22 NPO [DIET] 04/05/18 12:25 Lower Extremity Bilat W/ [CT] Routine Subjective - Subjective Patient Reports: No Complaints Nursing Reports: Other (Unchanged confusion) Objective Vital Signs: Vital Signs - 24 hr 04/04/18 04/04/18 04/05/18 20:30 23:03 07:55 Temperature 36.4 C L Heart Rate 68 80 Heart Rate [ 76 Brachial] Respiratory 16 16 14 Rate Blood Pressure 149/56 H [Left Brachial artery] Blood Pressure [Right Brachial artery] O2 Saturation 93 04/05/18 04/05/18 08:00 16:24 Temperature 36.3 C L 36.5 C Heart Rate Heart Rate [ 77 86 Brachial] Respiratory 18 20 Rate Blood Pressure [Left Brachial artery] Blood Pressure 156/53 H 148/59 H [Right Brachial artery] O2 Saturation 93 96 Oxygen O2 Source Room air I&O (Last 24 Hrs): Intake and Output Totals x24h 04/03/18 04/04/18 04/05/18 23:59 23:59 23:59 Intake Total 1110 1170 850 Output Total 2350 1850 800 Balance -1240 -680 50 General: Alert, Other (Confused) HEENT: Mucous membr. moist/pink Neck: Supple Neuro: Disoriented, Non Focal Cardiovascular: Regular rate, No murmurs Respiratory: No respiratory distress, Breath sounds nml Abdomen: Soft Extremities: No edema - Results Results: Laboratory Results WBC 9.5 x10^3/uL (4.8-10.8) 04/05/18 05:48 RBC 3.92 10^6/uL (4.20-5.40) L 04/05/18 05:48 Hgb 11.0 g/dL (12.0-16.0) L 04/05/18 05:48 Hct 33.8 % (37.0-47.0) L 04/05/18 05:48 MCV 86.0 fL (81.0-99.0) 04/05/18 05:48 MCH 27.9 pg (27.0-31.0) 04/05/18 05:48 MCHC 32.5 g/dL (32.0-36.0) 04/05/18 05:48 RDW 14.1 % (12.0-15.0) 04/05/18 05:48 Plt Count 381 10^3/uL (130-450) 04/05/18 05:48 MPV 7.1 fL (7.9-10.8) L 04/05/18 05:48 Neut # (Auto) Not Reportable 04/05/18 05:48 Lymph # (Auto) Not Reportable 04/05/18 05:48 [place] # (Auto) Not Reportable 04/05/18 05:48 Eos # (Auto) Not Reportable 04/05/18 05:48 Baso # (Auto) Not Reportable 04/05/18 05:48 Absolute Nucleated RBC Not Reportable 04/05/18 05:48 Total Counted 100 04/05/18 05:48 Band Neuts % (Manual) 6 % (0-10) 04/05/18 05:48 Abnorm Lymph % (Manual) 0 % 04/05/18 05:48 Metamyelocytes % 1 % (-0) H 04/05/18 05:48 Myelocytes % 1 % (-0) H 04/05/18 05:48 Nucleated RBC % Not Reportable 04/05/18 05:48 Neutrophils # (Manual) 7.1 10^3/uL (1.5-6.6) H 04/05/18 05:48 Lymphocytes # (Manual) 1.7 10^3/uL (1.5-3.5) 04/05/18 05:48 Monocytes # (Manual) 0.4 10^3/uL (0.0-1.0) 04/05/18 05:48 Eosinophils # (Manual) 0.1 10^3/uL (0-0.7) 04/05/18 05:48 Basophils # (Manual) 0.0 10^3/uL (0-0.1) 04/05/18 05:48 Differential Comment MANUAL DIFFERENTIAL 04/05/18 05:48 Platelet Estimate NORMAL (130-450,000) (NORMAL) 04/05/18 05:48 RBC Morph Micro Appear NORMAL APPEARANCE (NORMAL) 04/05/18 05:48 PT 14.7 secs (9.9-12.6) H 04/01/18 09:00 INR 1.3 (0.8-1.2) H 04/01/18 09:00 Sodium 131 mmol/L (135-145) L 04/05/18 05:48 Potassium 3.7 mmol/L (3.5-5.0) 04/05/18 05:48 Chloride 93 mmol/L (101-111) L 04/05/18 05:48 Carbon Dioxide 31 mmol/L (21-32) 04/05/18 05:48 Anion Gap 7.0 (6-13) 04/05/18 05:48 BUN 15 mg/dL (6-20) 04/05/18 05:48 Creatinine 0.8 mg/dL (0.4-1.0) 04/05/18 05:48 Estimated GFR (MDRD) 68 (>89) L 04/05/18 05:48 Glucose 136 mg/dL (70-100) H 04/05/18 05:48 Lactic Acid 1.5 mmol/L (0.5-2.2) 03/29/18 10:34 Calcium 9.0 mg/dL (8.5-10.3) 04/05/18 05:48 Ionized Calcium NO 04/05/18 05:48 Phosphorus 3.9 mg/dL (2.5-4.6) 04/05/18 05:48 Magnesium 1.7 mg/dL (1.7-2.8) 04/05/18 05:48 Total Bilirubin 0.4 mg/dL (0.2-1.0) 04/05/18 05:48 AST 39 IU/L (10-42) 04/05/18 05:48 ALT 40 IU/L (10-60) 04/05/18 05:48 Alkaline Phosphatase 59 IU/L (42-121) 04/05/18 05:48 Lactate Dehydrogenase 157 IU/L (91-225) 04/01/18 17:15 Total Protein 6.1 g/dL (6.7-8.2) L 04/05/18 05:48 Albumin 2.8 g/dL (3.2-5.5) L 04/05/18 05:48 Globulin 3.3 g/dL (2.1-4.2) 04/05/18 05:48 Albumin/Globulin Ratio 0.8 (1.0-2.2) L 04/05/18 05:48 Urine Color YELLOW 03/31/18 10:41 Urine Clarity CLEAR (CLEAR) 03/31/18 10:41 Urine pH 6.0 PH (5.0-7.5) 03/31/18 10:41 Ur Specific [place] 1.020 (1.002-1.030) 03/31/18 10:41 Urine Protein NEGATIVE mg/dL (NEGATIVE) 03/31/18 10:41 Urine Glucose (UA) NEGATIVE mg/dL (NEGATIVE) 03/31/18 10:41 Urine Ketones NEGATIVE mg/dL (NEGATIVE) 03/31/18 10:41 Urine Occult Blood TRACE-LYSE (NEGATIVE) 03/31/18 10:41 Urine Nitrite NEGATIVE (NEGATIVE) 03/31/18 10:41 Urine Bilirubin NEGATIVE (NEGATIVE) 03/31/18 10:41 Urine Urobilinogen 0.2 (NORMAL) E.U./dL (NORMAL) 03/31/18 10:41 Ur Leukocyte Esterase NEGATIVE (NEGATIVE) 03/31/18 10:41 Ur Microscopic Review NOT INDICATED 03/31/18 10:41 Urine Culture Comments NOT INDICATED 03/31/18 10:41 Fluid Source PLEURAL 04/01/18 12:00 Fluid Color YELLOW 04/01/18 12:00 Fluid Clarity HAZY 04/01/18 12:00 Fluid WBC 2492 /mm^3 04/01/18 12:00 Fluid RBC 6558 /mm^3 04/01/18 12:00 Fluid Neutrophils % 92 % 04/01/18 12:00 Fluid Lymphocytes % 4 04/01/18 12:00 Fluid Monocytes % 5 % 04/01/18 12:00 Fluid Eosinophils % 0 % 04/01/18 12:00 Fluid Macrophages % 2 % 04/01/18 12:00 Fld Mesothelial Cell % 2 % 04/01/18 12:00 Ref Lab Test Result REPORT 04/01/18 12:00
--- NOTE | 2018-04-05 17:14 | PROVIDER PROGRESS NOTE ---
Assessment/Plan - Problem List (1) Bacteremia due to Staphylococcus aureus Assessment/Plan: Will try to get in contact with ID [facility], since Dr Rincon had reached out to them already, but still no call back. Continue with present antibiotics and plan. (2) Pleural effusion Assessment/Plan: Stable symptoms post-thoracentesis. Fluid has not grown any bacteria. (3) Pneumonia Qualifiers: Laterality: left Lung location: lower lobe of lung Assessment/Plan: Cont antibx and plan (4) Hyponatremia Assessment/Plan: Improving. (5) UTI (urinary tract infection) Qualifiers: Urinary tract infection type: acute cystitis Hematuria presence: without hematuria Qualified Code(s): N30.00 - Acute cystitis without hematuria Assessment/Plan: Cont antibx and plan. (6) Dementia Qualifiers: Dementia type: unspecified type Dementia behavioral disturbance: without behavioral disturbance Qualified Code(s): F03.90 - Unspecified dementia without behavioral disturbance Assessment/Plan: Stable on meds. - Current Meds Current Meds: Current Medications Generic Name Dose Route Start Last Admin Trade Name Freq PRN Reason Stop Dose Admin Acetaminophen 650 mg 03/29/18 10:44 04/01/18 20:33 Tylenol PO 650 mg Q4HR PRN Administration Pain 1 to 4 Albuterol/Ipratropium 3 ml 03/29/18 10:44 04/02/18 07:28 Duoneb INH 3 ml Q4HR PRN Administration Wheezing Amlodipine Besylate 2.5 mg 03/30/18 09:00 04/05/18 09:06 Norvasc PO 2.5 mg DAILY ZAY Administration Aspirin 81 mg 03/30/18 09:00 04/05/18 09:06 [facility] [place] Aspirin PO 81 mg DAILY ZAY Administration Atorvastatin Calcium 10 mg 03/29/18 21:00 04/04/18 20:47 Lipitor PO 10 mg QPM ZAY Administration Budesonide 0.5 mg 03/29/18 19:00 04/05/18 07:58 Pulmicort INH 0.5 mg RTBID ZAY Administration Cholecalciferol 400 unit 03/29/18 21:00 04/05/18 09:06 Vitamin D3 PO 400 unit BID ZAY Administration Donepezil HCl 10 mg 03/30/18 09:00 04/05/18 09:06 Aricept PO 10 mg DAILY ZAY Administration Enoxaparin Sodium 40 mg 03/30/18 09:00 04/05/18 09:05 Lovenox SUBQ 40 mg DAILY ZAY Administration Famotidine 20 mg 03/29/18 21:00 04/04/18 20:47 Pepcid PO 20 mg QPM ZAY Administration Sodium Chloride 1,000 mls @ 0 mls/hr 04/02/18 10:00 04/02/18 18:38 Normal Saline 0.9% IV Infused .Q0M ZAY Infusion TKO Cefazolin Sodium 1 gm/ Sodium 100 mls @ 200 mls/hr 04/05/18 12:00 04/05/18 13:40 Chloride IV Infused Q8H ZAY Infusion Ibuprofen 600 mg 03/29/18 10:44 04/02/18 02:55 Motrin PO 600 mg Q6HR PRN Administration Pain 1 to 4 Lisinopril 20 mg 03/29/18 21:00 04/05/18 09:06 Zestril PO 20 mg BID ZAY Administration Memantine 10 mg 03/30/18 09:00 04/05/18 09:05 Namenda PO 10 mg DAILY ZAY Administration Polyethylene Glycol 17 gm 03/30/18 09:00 04/05/18 09:06 Miralax PO Not Given DAILY ZAY Saccharomyces Boulardii 250 mg 03/29/18 17:00 04/05/18 16:39 Florastor PO 250 mg BIDWM ZAY Administration Sodium Chloride 10 ml 03/29/18 10:44 04/05/18 15:11 Normal Saline Flush 0.9% IVP 10 ml PRN PRN Administration NEEDED PER PROVIDER ORDERS Sodium Chloride 10 ml 03/29/18 17:00 04/05/18 16:39 Normal Saline Flush 0.9% IVP 10 ml 0100,0900,1700 ZAY Administration - Lab Result Fish Bone Diagrams: 04/05/18 05:48 04/05/18 05:48 - Additional Planning My Orders: My Active Orders 04/05/18 11:05 PICC Line Care [RC] Q1D PICC Line Insert [RC] .ONCE 04/05/18 12:00 ceFAZolin [Ancef] 1 gm Sodium Chloride 0.9% Minibag [Normal Saline 0.9% Minibag] 100 ml IV Q8H 04/05/18 12:21 Cervical Spine W/ [CT] Routine Lumbar Spine W/ [CT] Routine Thoracic Spine W/ [CT] Routine 04/05/18 12:22 NPO [DIET] 04/05/18 12:25 Lower Extremity Bilat W/ [CT] Routine Subjective - Subjective Patient Reports: No Complaints Objective Vital Signs: Vital Signs - 24 hr 04/04/18 04/04/18 04/05/18 20:30 23:03 07:55 Temperature 36.4 C L Heart Rate 68 80 Heart Rate [ 76 Brachial] Respiratory 16 16 14 Rate Blood Pressure 149/56 H [Left Brachial artery] Blood Pressure [Right Brachial artery] O2 Saturation 93 04/05/18 04/05/18 08:00 16:24 Temperature 36.3 C L 36.5 C Heart Rate Heart Rate [ 77 86 Brachial] Respiratory 18 20 Rate Blood Pressure [Left Brachial artery] Blood Pressure 156/53 H 148/59 H [Right Brachial artery] O2 Saturation 93 96 Oxygen O2 Source Room air I&O (Last 24 Hrs): Intake and Output Totals x24h 04/03/18 04/04/18 04/05/18 23:59 23:59 23:59 Intake Total 1110 1170 850 Output Total 2350 1850 800 Balance -1240 -680 50 General: Alert, Other (Disoriented) HEENT: Mucous membr. moist/pink Neck: Supple Neuro: Disoriented, Non Focal Cardiovascular: Regular rate, No murmurs Respiratory: No respiratory distress, Breath sounds nml Abdomen: Soft Extremities: No edema - Results Results: Laboratory Results WBC 9.5 x10^3/uL (4.8-10.8) 04/05/18 05:48 RBC 3.92 10^6/uL (4.20-5.40) L 04/05/18 05:48 Hgb 11.0 g/dL (12.0-16.0) L 04/05/18 05:48 Hct 33.8 % (37.0-47.0) L 04/05/18 05:48 MCV 86.0 fL (81.0-99.0) 04/05/18 05:48 MCH 27.9 pg (27.0-31.0) 04/05/18 05:48 MCHC 32.5 g/dL (32.0-36.0) 04/05/18 05:48 RDW 14.1 % (12.0-15.0) 04/05/18 05:48 Plt Count 381 10^3/uL (130-450) 04/05/18 05:48 MPV 7.1 fL (7.9-10.8) L 04/05/18 05:48 Neut # (Auto) Not Reportable 04/05/18 05:48 Lymph # (Auto) Not Reportable 04/05/18 05:48 [place] # (Auto) Not Reportable 04/05/18 05:48 Eos # (Auto) Not Reportable 04/05/18 05:48 Baso # (Auto) Not Reportable 04/05/18 05:48 Absolute Nucleated RBC Not Reportable 04/05/18 05:48 Total Counted 100 04/05/18 05:48 Band Neuts % (Manual) 6 % (0-10) 04/05/18 05:48 Abnorm Lymph % (Manual) 0 % 04/05/18 05:48 Metamyelocytes % 1 % (-0) H 04/05/18 05:48 Myelocytes % 1 % (-0) H 04/05/18 05:48 Nucleated RBC % Not Reportable 04/05/18 05:48 Neutrophils # (Manual) 7.1 10^3/uL (1.5-6.6) H 04/05/18 05:48 Lymphocytes # (Manual) 1.7 10^3/uL (1.5-3.5) 04/05/18 05:48 Monocytes # (Manual) 0.4 10^3/uL (0.0-1.0) 04/05/18 05:48 Eosinophils # (Manual) 0.1 10^3/uL (0-0.7) 04/05/18 05:48 Basophils # (Manual) 0.0 10^3/uL (0-0.1) 04/05/18 05:48 Differential Comment MANUAL DIFFERENTIAL 04/05/18 05:48 Platelet Estimate NORMAL (130-450,000) (NORMAL) 04/05/18 05:48 RBC Morph Micro Appear NORMAL APPEARANCE (NORMAL) 04/05/18 05:48 PT 14.7 secs (9.9-12.6) H 04/01/18 09:00 INR 1.3 (0.8-1.2) H 04/01/18 09:00 Sodium 131 mmol/L (135-145) L 04/05/18 05:48 Potassium 3.7 mmol/L (3.5-5.0) 04/05/18 05:48 Chloride 93 mmol/L (101-111) L 04/05/18 05:48 Carbon Dioxide 31 mmol/L (21-32) 04/05/18 05:48 Anion Gap 7.0 (6-13) 04/05/18 05:48 BUN 15 mg/dL (6-20) 04/05/18 05:48 Creatinine 0.8 mg/dL (0.4-1.0) 04/05/18 05:48 Estimated GFR (MDRD) 68 (>89) L 04/05/18 05:48 Glucose 136 mg/dL (70-100) H 04/05/18 05:48 Lactic Acid 1.5 mmol/L (0.5-2.2) 03/29/18 10:34 Calcium 9.0 mg/dL (8.5-10.3) 04/05/18 05:48 Ionized Calcium NO 04/05/18 05:48 Phosphorus 3.9 mg/dL (2.5-4.6) 04/05/18 05:48 Magnesium 1.7 mg/dL (1.7-2.8) 04/05/18 05:48 Total Bilirubin 0.4 mg/dL (0.2-1.0) 04/05/18 05:48 AST 39 IU/L (10-42) 04/05/18 05:48 ALT 40 IU/L (10-60) 04/05/18 05:48 Alkaline Phosphatase 59 IU/L (42-121) 04/05/18 05:48 Lactate Dehydrogenase 157 IU/L (91-225) 04/01/18 17:15 Total Protein 6.1 g/dL (6.7-8.2) L 04/05/18 05:48 Albumin 2.8 g/dL (3.2-5.5) L 04/05/18 05:48 Globulin 3.3 g/dL (2.1-4.2) 04/05/18 05:48 Albumin/Globulin Ratio 0.8 (1.0-2.2) L 04/05/18 05:48 Urine Color YELLOW 03/31/18 10:41 Urine Clarity CLEAR (CLEAR) 03/31/18 10:41 Urine pH 6.0 PH (5.0-7.5) 03/31/18 10:41 Ur Specific [place] 1.020 (1.002-1.030) 03/31/18 10:41 Urine Protein NEGATIVE mg/dL (NEGATIVE) 03/31/18 10:41 Urine Glucose (UA) NEGATIVE mg/dL (NEGATIVE) 03/31/18 10:41 Urine Ketones NEGATIVE mg/dL (NEGATIVE) 03/31/18 10:41 Urine Occult Blood TRACE-LYSE (NEGATIVE) 03/31/18 10:41 Urine Nitrite NEGATIVE (NEGATIVE) 03/31/18 10:41 Urine Bilirubin NEGATIVE (NEGATIVE) 03/31/18 10:41 Urine Urobilinogen 0.2 (NORMAL) E.U./dL (NORMAL) 03/31/18 10:41 Ur Leukocyte Esterase NEGATIVE (NEGATIVE) 03/31/18 10:41 Ur Microscopic Review NOT INDICATED 03/31/18 10:41 Urine Culture Comments NOT INDICATED 03/31/18 10:41 Fluid Source PLEURAL 04/01/18 12:00 Fluid Color YELLOW 04/01/18 12:00 Fluid Clarity HAZY 04/01/18 12:00 Fluid WBC 2492 /mm^3 04/01/18 12:00 Fluid RBC 6558 /mm^3 04/01/18 12:00 Fluid Neutrophils % 92 % 04/01/18 12:00 Fluid Lymphocytes % 4 04/01/18 12:00 Fluid Monocytes % 5 % 04/01/18 12:00 Fluid Eosinophils % 0 % 04/01/18 12:00 Fluid Macrophages % 2 % 04/01/18 12:00 Fld Mesothelial Cell % 2 % 04/01/18 12:00 Ref Lab Test Result REPORT 04/01/18 12:00
--- NOTE | 2018-04-05 21:16 | CT Report ---
Reason: Staph bacteremia, eval for spinal source Procedure Date: 04/05/2018 Accession Number: [id number] / [id number] Procedure: CT - Lumbar Spine W/ CPT Code: FULL RESULT: EXAM: CT LUMBAR SPINE WITH CONTRAST. EXAM DATE: 04/05/2018 03:40 PM. CLINICAL HISTORY: Staphylococcus bacteremia, evaluate for spinal source. COMPARISONS: CT abdomen and pelvis 03/31/2018. TECHNIQUE: Thin-section axial images were acquired of the lumbar spine from T10 to S1 after administration of intravenous contrast. Post-processing: Coronal and sagittal reformats. Other: None. IV contrast: 100 mL Optiray 320. In accordance with CT protocol optimization, one or more of the following dose reduction techniques were utilized for this exam: automated exposure control, adjustment of mA and/or KV based on patient size, or use of iterative reconstructive technique. FINDINGS: Alignment: Mild S-shaped thoracolumbar scoliosis with 12 degrees convex right component centered at L2-L3. 2-3 mm retrolisthesis at T12 on L1 and L1 on L2. 2 3 mm anterolisthesis at L2 on L3. Bones: Transitional lumbosacral anatomy with lumbarization of S1. 12 rib-bearing vertebral bodies visualized on CT thoracic spine. Osteopenia. No gross fracture or bone lesion. Cystic endplate changes with sclerosis present at T12-L1 through L5-S1. Evaluation for osseous erosions and osteomyelitis significantly limited on CT. Disk Levels/Facets: Moderate to severe disk height loss and vacuum formation throughout the lumbar spine. T12-L1: Moderate to large disk osteophyte complex. Mild facet hypertrophy. Mild to moderate central canal stenosis. Severe right and mild left neural foramen stenosis. L1-L2: Moderate disk osteophyte complex. Mild facet hypertrophy. Mild central canal stenosis. Severe right and moderate left neural foramen stenosis. L2-L3: Moderate disk osteophyte complex. Mild facet hypertrophy. Mild to moderate central canal stenosis. Moderate bilateral neural foramen stenosis. L3-L4: Moderate disk osteophyte complex. Moderate facet hypertrophy. Moderate to severe central canal stenosis. Moderate right and moderate to severe left neural foramen stenosis. L4-L5: Moderate to large disk osteophyte complex. Moderate facet hypertrophy. Moderate central canal stenosis. Moderate to severe bilateral neural foramen stenosis. L5-S1: Large disk osteophyte complex. Moderate to severe facet hypertrophy. Mild central canal stenosis. Severe bilateral neural foramen stenosis. Spinal Canal: Significantly limited evaluation for epidural abscess on CT. Musculature: Mild fatty atrophy in the posterior paraspinous musculature. Soft tissue swelling in the right quadratus lumborum muscle with ill-defined ovoid fluid collection with rim enhancement measuring 1.5 x 2.4 x 8.7 cm. Ill-defined patchy fat stranding at the inferior aspect of the site. Other: Consolidation and small right pleural effusion partially visualized. Small hiatal hernia. Moderate to severe atherosclerosis in the abdominal aorta. Multiple sigmoid diverticula. IMPRESSION: 1. Significantly limited evaluation for diskitis/osteomyelitis and epidural abscess on CT. If there is continued clinical concern for intraspinous extension of infection, MRI with IV contrast is the preferred exam. 2. Ill-defined 1.5 x 2.4 x 8.7 cm abscess in the right quadratus lumborum muscle. This may be due to extension of infection from the right lower lobe where there is consolidation and pleural effusion. 3. Moderate to severe degenerative disk and facet changes. 4. Varying degrees of central canal stenosis, moderate to severe at L3-L4. 5. Varying degrees of neural foramen stenosis, severe at L1-L2 on the right, L3-L4 on the left, and L5-S1 bilaterally. Findings discussed with Sharron Russ RN at 9:57 PM on 04/05/[address] Mendiola. [facility]
--- NOTE | 2018-04-05 21:24 | CT Report ---
Reason: Bilat knee replacements, eval for infection Procedure Date: 04/05/2018 Accession Number: [id number] / [id number] Procedure: CT - Lower Extremity Bilat W/ CPT Code: FULL RESULT: EXAM: BILATERAL KNEE CT WITH CONTRAST. EXAM DATE: 04/05/2018 03:40 PM. CLINICAL HISTORY: Bilateral knee replacements, eval for infection. COMPARISON: Radiographs 03/31/2018. TECHNIQUE: Thin-section axial images were acquired of the bilateral knees after administration of intravenous contrast. IV contrast: OPTIRAY 320 100 mL. Post-processing: Coronal and sagittal reformats. Other: None. In accordance with CT protocol optimization, one or more of the following dose reduction techniques were utilized for this exam: automated exposure control, adjustment of mA and/or KV based on patient size, or use of iterative reconstructive technique. FINDINGS: Right: Bones: No fracture or bone lesion. No gross erosive changes. Evaluation for osteomyelitis significantly limited on CT. Joints: Tricompartmental moderate to severe degenerative changes, most prominent at the medial compartment. Large joint effusion. Small focus of very low attenuation in the superior lateral aspect of the joint. This may be due to a small focus of air. Multiple punctate and linear ill-defined densities within the suprapatellar fluid. Some of these may be due to capsular calcifications. Musculature: Mild fatty atrophy in the semimembranosus muscle. Limited evaluation for muscle edema on CT. Other: Mild to moderate vascular calcifications. Patchy mild subcutaneous edema over the anterior and posterior aspects of the knee. No gross fluid collection. Left: Bones: Streak artifact from unicompartmental arthroplasty at the medial compartment. No gross adjacent lucency. No gross erosive changes. Evaluation for osteomyelitis significantly limited on CT. Joints: Moderate to severe degenerative change at the lateral and patellofemoral compartments. No joint effusion. Ill-defined punctate and linear densities in the joint of the suprapatellar region. These may be due to capsular calcifications. Musculature: Mild fatty atrophy in the semimembranosus muscle. Limited evaluation for muscle edema on CT. Other: Mild to moderate vascular calcifications. Patchy mild subcutaneous edema over the anterior and posterior aspects of the knee. No gross fluid collection. IMPRESSION: 1. Large right knee joint effusion with likely synovitis. This is nonspecific and may be related to degenerative change. Superimposed infection/septic joint not excluded. If not already performed, joint aspiration could be performed for further characterization. 2. Significantly limited evaluation for osteomyelitis on CT. If there is clinical concern for osteomyelitis, MRI with IV contrast recommended. 3. Possible subtle focus of air versus fat in the superior lateral aspect right knee joint. 4. No joint effusion of the left knee. 5. Unicompartmental prosthesis at the medial compartment left knee. Moderate to severe degenerative change lateral and patellofemoral compartments. [facility]
--- NOTE | 2018-04-05 22:15 | CT Report ---
Reason: Staph bacteremia, eval for spinal source Procedure Date: 04/05/2018 Accession Number: [id number] / [id number] Procedure: CT - Cervical Spine W/ CPT Code: FULL RESULT: EXAM: CT CERVICAL SPINE WITH CONTRAST. DATE: 04/05/2018 03:40 PM. HISTORY: Staphylococcus bacteremia, evaluate for spinal source. COMPARISONS: None. TECHNIQUE: Thin-section axial images were acquired of the cervical spine with IV contrast. IV contrast: 100 mL Optiray 320. Post-processing: Coronal and sagittal reformats. Other: None. In accordance with CT protocol optimization, one or more of the following dose reduction techniques were utilized for this exam: automated exposure control, adjustment of mA and/or KV based on patient size, or use of iterative reconstructive technique. FINDINGS: Alignment: Mild convex right curvature lower cervical spine. 4 mm anterolisthesis at C4 on C5. Bones: No gross fracture or bone lesion. No gross erosive changes. Evaluation for osteomyelitis significantly limited on CT. Interspace Levels/Facets: C1-C2: Moderate to severe degenerative change anteriorly with soft tissue thickening/pannus over the posterior aspect of the dens. This contributes to minimal central canal stenosis. C2-C3: Unremarkable. C3-C4: Minimal disk osteophyte complex. Mild right and severe left facet hypertrophy. Mild right and moderate left neural foramen stenosis. C4-C5: Small disk osteophyte complex. Mild right and severe left facet hypertrophy. Minimal central canal stenosis. Moderate bilateral neural foramen stenosis. C5-C6: Small to moderate disk osteophyte complex with focal central component. Mild facet and ligamentum flavum hypertrophy. Moderate central canal stenosis. Moderate right and mild left neural foramen stenosis. C6-C7: Small disk osteophyte complex. Mild facet hypertrophy. Minimal central canal stenosis. Moderate to severe right and mild left neural foramen stenosis. C7-T1: Small disk osteophyte complex. Mild facet hypertrophy. Minimal central canal stenosis. Mild right neural foramen stenosis. Musculature: Minimal fatty atrophy in the posterior paraspinous musculature. Evaluation for muscle edema limited on CT. Central Canal: Significantly limited evaluation of the soft tissues of the central canal on CT. Evaluation for epidural abscess significantly limited. Other: The paravertebral and prevertebral soft tissues are unremarkable. The lung apices are clear. IMPRESSION: 1. Significantly limited evaluation for diskitis/osteomyelitis and epidural abscess on CT. If there is continued clinical concern for spinal infection, MRI with IV contrast is the preferred exam. 2. Moderate to severe degenerative disk and facet changes. 3. Grade 1 anterolisthesis at C4 on C5. 4. Varying degrees of central canal stenosis, moderate at C5-C6. 5. Varying degrees of neural foramen stenosis, moderate to severe at C6-C7 on the right. [facility]
--- NOTE | 2018-04-05 22:30 | CT Report ---
Reason: Staph bacteremia, eval for spinal source Procedure Date: 04/05/2018 Accession Number: [id number] / [id number] Procedure: CT - Thoracic Spine W/ CPT Code: FULL RESULT: EXAM: CT THORACIC SPINE WITH CONTRAST. EXAM DATE: 04/05/2018 03:40 PM. CLINICAL HISTORY: Staphylococcus bacteremia, evaluate for spinal source. COMPARISONS: CT abdomen and pelvis 03/31/2018. TECHNIQUE: Thin-section axial images were acquired of the thoracic spine from C7 to L1 after administration of intravenous contrast. Post-processing: Coronal and sagittal reformats. Other: None. IV contrast: OPTIRAY 320 100 mL. In accordance with CT protocol optimization, one or more of the following dose reduction techniques were utilized for this exam: automated exposure control, adjustment of mA and/or KV based on patient size, or use of iterative reconstructive technique. FINDINGS: Alignment: Mild convex left curvature. No spondylolisthesis. Bones: No gross fracture or bone lesion. No gross erosive changes. Evaluation for osteomyelitis significantly limited on CT. Cystic endplate changes and sclerosis at T12-L1, likely degenerative. Disk Levels/Facets: Mild to moderate degenerative disk and facet changes throughout the thoracic spine. Disk osteophyte complexes at T2-T3 and T7-T8 results in minimal central canal stenosis. Varying degrees of neural foramen stenosis, moderate at T5-T6, T8-T9, and T9-T10 bilaterally. Spinal Canal: Significantly limited evaluation of the soft tissues of the central canal on CT. Evaluation for epidural abscess significantly limited. Musculature: Mild fatty atrophy in the posterior paraspinous musculature. Other: Mild to moderate atherosclerosis in the aortic arch and descending thoracic aorta. Cardiomegaly partially visualized. Coronary artery disease partially visualized. No lymphadenopathy. Prominent azygous vein noted. Small region of consolidation with air bronchograms posterior aspect right lower lobe with small pleural effusion. IMPRESSION: 1. Significantly limited evaluation for diskitis/osteomyelitis and epidural abscess on CT. If there is continued clinical concern, MRI with contrast is the examination of choice. 2. Mild to moderate degenerative disk and facet changes. 3. Minimal central canal stenosis at T2-T3 and T7-T8. 4. Patchy consolidation right lower lobe and small pleural effusion, concerning for infection. [facility]
[2018-04-05] MEDS: ATORVASTATIN 10 MG TABLET PO SCH (22:41)
[2018-04-05] MEDS: FAMOTIDINE 20 MG TABLET PO SCH (22:42)
[2018-04-05] MEDS: ACETAMINOPHEN 325 MG TABLET PO PRN (22:46)
[2018-04-06] MEDS: ceFAZolin 1 GM in SODIUM CHLORIDE 0.9% MINIBAG 100 ML IV SCH ×3 (05:01→19:27)
[2018-04-06 06:40] LABS: BASOPHILS % (AUTO) 0.5 %; EOSINOPHILS # (AUTO) 0.1 10^3/uL (0.0-0.7); EOSINOPHILS % (AUTO) 1.6 %; HGB - HEMOGLOBIN 10.7 g/dL (12.0-16.0); LYMPHOCYTES # (AUTO) 1.5 10^3/uL (1.5-3.5); LYMPHOCYTES % (AUTO) 15.6 %; MEAN CORPUSCULAR HEMOGLOBIN 28.2 pg (27.0-31.0); MEAN CORPUSCULAR VOLUME 85.4 fL (81.0-99.0); MEAN PLATELET VOLUME 6.7 fL (7.9-10.8); MONOCYTES % (AUTO) 10.7 %; NEUTROPHILS # (AUTO) 6.7 10^3/uL (1.5-6.6); NEUTROPHILS % (AUTO) 71.6 %; PLT - PLATELET COUNT 394 10^3/uL (130-450); RED BLOOD COUNT 3.81 10^6/uL (4.20-5.40); RED CELL DISTRIBUTION WIDTH 14.1 % (12.0-15.0); WHITE BLOOD COUNT 9.4 x10^3/uL (4.8-10.8)
[2018-04-06 06:49] LABS: CALCIUM 8.8 mg/dL (8.5-10.3); CREATININE 0.8 mg/dL (0.4-1.0)
[2018-04-06] MEDS: CHOLECALCIFEROL 400 UNIT TABLET PO SCH ×2 (08:22→20:29)
[2018-04-06] MEDS: DONEPEZIL 5 MG TABLET PO SCH (08:22)
[2018-04-06] MEDS: MEMANTINE 5 MG TABLET PO SCH (08:22)
[2018-04-06] MEDS: amLODIPine 5 MG TABLET PO SCH (08:22)
[2018-04-06] MEDS: LISINOPRIL 20 MG TABLET PO SCH ×2 (08:23→20:29)
[2018-04-06] MEDS: ACETAMINOPHEN 325 MG TABLET PO PRN ×2 (08:23→20:29)
[2018-04-06] MEDS: ASPIRIN CHEW 81 MG TABLET PO SCH (08:23)
[2018-04-06] MEDS: POLYETHYLENE GLYCOL 3350 17 GM PACKET PO SCH (08:25)
[2018-04-06] MEDS: ENOXAPARIN 40 MG/0.4 ML SYRINGE SUBQ SCH (08:25)
[2018-04-06] MEDS: SODIUM CHLORIDE FLUSH 0.9% 10 ML SYRINGE IVP SCH ×2 (08:25→11:28)
[2018-04-06] MEDS: BUDESONIDE 0.5 MG/2 ML NEB INH SCH (09:18)
[2018-04-06] MEDS ORDERED: ZINC OXIDE 20% OINT 28.35 GM TUBE TOP PRN (10:44)
[2018-04-06] MEDS ORDERED: MIN OIL/DIMETHICON/COCONUT OIL 92 GM TUBE TOP PRN (10:44)
[2018-04-06] MEDS: SACCHAROMYCES BOULARDII 250 MG CAPSULE PO SCH ×2 (10:49→17:10)
--- NOTE | 2018-04-06 14:24 | XRAY Report ---
Reason: LINE PLACEMENT Procedure Date: 04/06/2018 Accession Number: [id number] / [id number] Procedure: XR - Chest for Line Placement CPT Code: FULL RESULT: EXAM: CHEST RADIOGRAPHY EXAM DATE: 04/06/2018 02:11 PM. CLINICAL HISTORY: Line placement. COMPARISON: CHEST 1 VIEW 03/31/2018 8:55 AM. TECHNIQUE: 1 view. FINDINGS: Interval right PICC with the tip terminating at the cavoatrial junction. Lungs/Pleura: No focal opacities evident. No pleural effusion. No pneumothorax. Mediastinum: Within exam limitations, the cardiomediastinal contour is normal. Other: None. IMPRESSION: Interval PICC placement, appropriate position. [facility]
--- NOTE | 2018-04-06 16:58 | PROVIDER PROGRESS NOTE ---
Assessment/Plan - Problem List (1) Bacteremia due to Staphylococcus aureus Assessment/Plan: The patient had CT imaging of her entire spine and bothe knees. The findings are significant: Loculated effusion of the right knee and abscess in right lumbar muscle. I spoke to the ID Fellow, Dr Soraya Mcneal and will have all CT images pushed to and speak with her again about a potential transfer for higher level of care for knee aspiration and abscess drainage and also looking further for pockets of infection such as vegetations (she will need a KEYSHA) and brain imaging. (2) Abscess of paraspinal muscles Assessment/Plan: As in #1 (3) Knee effusion, right Assessment/Plan: As in #1 (4) Hyponatremia Assessment/Plan: Fluctuating. Will continue iv saline replacement. Monitor BMP daily. (5) UTI (urinary tract infection) Qualifiers: Urinary tract infection type: acute cystitis Hematuria presence: without hematuria Qualified Code(s): N30.00 - Acute cystitis without hematuria Assessment/Plan: No symptoms of dysuria and she remains on antibiotics. (6) Dementia Qualifiers: Dementia type: unspecified type Dementia behavioral disturbance: without behavioral disturbance Qualified Code(s): F03.90 - Unspecified dementia without behavioral disturbance Assessment/Plan: Stable on 2 meds. (7) Pneumonia Qualifiers: Laterality: left Lung location: lower lobe of lung Assessment/Plan: No respiratory complaints. (8) Pleural effusion Assessment/Plan: Resolved by CXR done today and without respiratory symptoms. - Current Meds Current Meds: Current Medications Generic Name Dose Route Start Last Admin Trade Name Freq PRN Reason Stop Dose Admin Acetaminophen 650 mg 03/29/18 10:44 04/06/18 08:23 Tylenol PO 650 mg Q4HR PRN Administration Pain 1 to 4 Albuterol/Ipratropium 3 ml 03/29/18 10:44 04/02/18 07:28 Duoneb INH 3 ml Q4HR PRN Administration Wheezing Amlodipine Besylate 2.5 mg 03/30/18 09:00 04/06/18 08:22 Norvasc PO 2.5 mg DAILY ZAY Administration Aspirin 81 mg 03/30/18 09:00 04/06/18 08:23 [facility] Is[place]ro Aspirin PO 81 mg DAILY ZAY Administration Atorvastatin Calcium 10 mg 03/29/18 21:00 04/05/18 22:41 Lipitor PO 10 mg QPM ZAY Administration Budesonide 0.5 mg 03/29/18 19:00 04/06/18 09:18 Pulmicort INH 0.5 mg RTBID ZAY Administration Cholecalciferol 400 unit 03/29/18 21:00 04/06/18 08:22 Vitamin D3 PO 400 unit BID ZAY Administration Donepezil HCl 10 mg 03/30/18 09:00 04/06/18 08:22 Aricept PO 10 mg DAILY ZAY Administration Enoxaparin Sodium 40 mg 03/30/18 09:00 04/06/18 08:25 Lovenox SUBQ 40 mg DAILY ZAY Administration Famotidine 20 mg 03/29/18 21:00 04/05/18 22:42 Pepcid PO 20 mg QPM ZAY Administration Sodium Chloride 1,000 mls @ 0 mls/hr 04/02/18 10:00 04/02/18 18:38 Normal Saline 0.9% IV Infused .Q0M ZAY Infusion TKO Cefazolin Sodium 1 gm/ Sodium 100 mls @ 200 mls/hr 04/05/18 12:00 04/06/18 14:08 Chloride IV Infused Q8H ZAY Infusion Ibuprofen 600 mg 03/29/18 10:44 04/02/18 02:55 Motrin PO 600 mg Q6HR PRN Administration Pain 1 to 4 Lisinopril 20 mg 03/29/18 21:00 04/06/18 08:23 Zestril PO 20 mg BID ZAY Administration Memantine 10 mg 03/30/18 09:00 04/06/18 08:22 Namenda PO 10 mg DAILY ZAY Administration Polyethylene Glycol 17 gm 03/30/18 09:00 04/06/18 08:25 Miralax PO 17 gm DAILY ZAY Administration Saccharomyces Boulardii 250 mg 03/29/18 17:00 04/06/18 10:49 Florastor PO 250 mg BIDWM ZAY Administration Sodium Chloride 10 ml 03/29/18 10:44 04/05/18 15:11 Normal Saline Flush 0.9% IVP 10 ml PRN PRN Administration NEEDED PER PROVIDER ORDERS Sodium Chloride 10 ml 03/29/18 17:00 04/06/18 11:28 Normal Saline Flush 0.9% IVP 20 ml 0100,0900,1700 ZAY Administration - Lab Result Fish Bone Diagrams: 04/06/18 06:24 04/06/18 06:24 - Additional Planning My Orders: My Active Orders 04/05/18 Dinner DIET [Regular Diet] [DIET] Subjective - Subjective Patient Reports: No Complaints, Other (I met the son today, who mentioned that the patient had complained of back pain 2 days ago and she has never had back pain.) Objective Vital Signs: Vital Signs - 24 hr 04/05/18 04/05/18 04/06/18 20:41 23:54 08:00 Temperature 36.6 C 36.8 C Heart Rate 90 Heart Rate [ 72 71 Brachial] Respiratory 16 20 22 Rate Blood Pressure 147/52 H 162/64 H [Left Brachial artery] O2 Saturation 97 96 04/06/18 04/06/18 09:17 15:43 Temperature 36.3 C L Heart Rate 80 Heart Rate [ 74 Brachial] Respiratory 22 20 Rate Blood Pressure 144/52 H [Left Brachial artery] O2 Saturation 96 Oxygen O2 Source Room air I&O (Last 24 Hrs): Intake and Output Totals x24h 04/04/18 04/05/18 04/06/18 23:59 23:59 23:59 Intake Total 1170 1610 780 Output Total 1850 800 Balance -680 810 780 General: Alert HEENT: Mucous membr. moist/pink Neck: Supple Neuro: Disoriented, Non Focal Cardiovascular: Regular rate, No murmurs Respiratory: No respiratory distress, Breath sounds nml Abdomen: Soft Extremities: No edema - Results Results: Laboratory Results WBC 9.4 x10^3/uL (4.8-10.8) 04/06/18 06:24 RBC 3.81 10^6/uL (4.20-5.40) L 04/06/18 06:24 Hgb 10.7 g/dL (12.0-16.0) L 04/06/18 06:24 Hct 32.6 % (37.0-47.0) L 04/06/18 06:24 MCV 85.4 fL (81.0-99.0) 04/06/18 06:24 MCH 28.2 pg (27.0-31.0) 04/06/18 06:24 MCHC 33.0 g/dL (32.0-36.0) 04/06/18 06:24 RDW 14.1 % (12.0-15.0) 04/06/18 06:24 Plt Count 394 10^3/uL (130-450) 04/06/18 06:24 MPV 6.7 fL (7.9-10.8) L 04/06/18 06:24 Neut # (Auto) 6.7 10^3/uL (1.5-6.6) H 04/06/18 06:24 Lymph # (Auto) 1.5 10^3/uL (1.5-3.5) 04/06/18 06:24 [place] # (Auto) 1.0 10^3/uL (0.0-1.0) 04/06/18 06:24 Eos # (Auto) 0.1 10^3/uL (0.0-0.7) 04/06/18 06:24 Baso # (Auto) 0.0 10^3/uL (0.0-0.1) 04/06/18 06:24 Absolute Nucleated RBC 0.00 x10^3/uL 04/06/18 06:24 Total Counted 100 04/05/18 05:48 Band Neuts % (Manual) 6 % (0-10) 04/05/18 05:48 Abnorm Lymph % (Manual) 0 % 04/05/18 05:48 Metamyelocytes % 1 % (-0) H 04/05/18 05:48 Myelocytes % 1 % (-0) H 04/05/18 05:48 Nucleated RBC % 0.0 /100WBC 04/06/18 06:24 Neutrophils # (Manual) 7.1 10^3/uL (1.5-6.6) H 04/05/18 05:48 Lymphocytes # (Manual) 1.7 10^3/uL (1.5-3.5) 04/05/18 05:48 Monocytes # (Manual) 0.4 10^3/uL (0.0-1.0) 04/05/18 05:48 Eosinophils # (Manual) 0.1 10^3/uL (0-0.7) 04/05/18 05:48 Basophils # (Manual) 0.0 10^3/uL (0-0.1) 04/05/18 05:48 Differential Comment MANUAL DIFFERENTIAL 04/05/18 05:48 Platelet Estimate NORMAL (130-450,000) (NORMAL) 04/05/18 05:48 RBC Morph Micro Appear NORMAL APPEARANCE (NORMAL) 04/05/18 05:48 PT 14.7 secs (9.9-12.6) H 04/01/18 09:00 INR 1.3 (0.8-1.2) H 04/01/18 09:00 Sodium 130 mmol/L (135-145) L 04/06/18 06:24 Potassium 3.5 mmol/L (3.5-5.0) 04/06/18 06:24 Chloride 94 mmol/L (101-111) L 04/06/18 06:24 Carbon Dioxide 30 mmol/L (21-32) 04/06/18 06:24 Anion Gap 6.0 (6-13) 04/06/18 06:24 BUN 14 mg/dL (6-20) 04/06/18 06:24 Creatinine 0.8 mg/dL (0.4-1.0) 04/06/18 06:24 Estimated GFR (MDRD) 68 (>89) L 04/06/18 06:24 Glucose 121 mg/dL (70-100) H 04/06/18 06:24 Lactic Acid 1.5 mmol/L (0.5-2.2) 03/29/18 10:34 Calcium 8.8 mg/dL (8.5-10.3) 04/06/18 06:24 Ionized Calcium NO 04/05/18 05:48 Phosphorus 3.9 mg/dL (2.5-4.6) 04/05/18 05:48 Magnesium 1.7 mg/dL (1.7-2.8) 04/05/18 05:48 Total Bilirubin 0.4 mg/dL (0.2-1.0) 04/05/18 05:48 AST 39 IU/L (10-42) 04/05/18 05:48 ALT 40 IU/L (10-60) 04/05/18 05:48 Alkaline Phosphatase 59 IU/L (42-121) 04/05/18 05:48 Lactate Dehydrogenase 157 IU/L (91-225) 04/01/18 17:15 Total Protein 6.1 g/dL (6.7-8.2) L 04/05/18 05:48 Albumin 2.8 g/dL (3.2-5.5) L 04/05/18 05:48 Globulin 3.3 g/dL (2.1-4.2) 04/05/18 05:48 Albumin/Globulin Ratio 0.8 (1.0-2.2) L 04/05/18 05:48 Urine Color YELLOW 03/31/18 10:41 Urine Clarity CLEAR (CLEAR) 03/31/18 10:41 Urine pH 6.0 PH (5.0-7.5) 03/31/18 10:41 Ur Specific [place] 1.020 (1.002-1.030) 03/31/18 10:41 Urine Protein NEGATIVE mg/dL (NEGATIVE) 03/31/18 10:41 Urine Glucose (UA) NEGATIVE mg/dL (NEGATIVE) 03/31/18 10:41 Urine Ketones NEGATIVE mg/dL (NEGATIVE) 03/31/18 10:41 Urine Occult Blood TRACE-LYSE (NEGATIVE) 03/31/18 10:41 Urine Nitrite NEGATIVE (NEGATIVE) 03/31/18 10:41 Urine Bilirubin NEGATIVE (NEGATIVE) 03/31/18 10:41 Urine Urobilinogen 0.2 (NORMAL) E.U./dL (NORMAL) 03/31/18 10:41 Ur Leukocyte Esterase NEGATIVE (NEGATIVE) 03/31/18 10:41 Ur Microscopic Review NOT INDICATED 03/31/18 10:41 Urine Culture Comments NOT INDICATED 03/31/18 10:41 Fluid Source PLEURAL 04/01/18 12:00 Fluid Color YELLOW 04/01/18 12:00 Fluid Clarity HAZY 04/01/18 12:00 Fluid WBC 2492 /mm^3 04/01/18 12:00 Fluid RBC 6558 /mm^3 04/01/18 12:00 Fluid Neutrophils % 92 % 04/01/18 12:00 Fluid Lymphocytes % 4 04/01/18 12:00 Fluid Monocytes % 5 % 04/01/18 12:00 Fluid Eosinophils % 0 % 04/01/18 12:00 Fluid Macrophages % 2 % 04/01/18 12:00 Fld Mesothelial Cell % 2 % 04/01/18 12:00 Ref Lab Test Result REPORT 04/01/18 12:00
[2018-04-06] MEDS: SODIUM CHLORIDE FLUSH 0.9% 10 ML SYRINGE IVP PRN ×2 (19:27→20:09)
[2018-04-06] MEDS: ATORVASTATIN 10 MG TABLET PO SCH (20:29)
[2018-04-06] MEDS: FAMOTIDINE 20 MG TABLET PO SCH (20:29)
[2018-04-07] MEDS: BUDESONIDE 0.5 MG/2 ML NEB INH SCH ×3 (02:25→21:10)
[2018-04-07] MEDS: ACETAMINOPHEN 325 MG TABLET PO PRN ×2 (04:22→15:57)
[2018-04-07] MEDS: ceFAZolin 1 GM in SODIUM CHLORIDE 0.9% MINIBAG 100 ML IV SCH ×3 (04:31→19:30)
[2018-04-07] MEDS: SODIUM CHLORIDE FLUSH 0.9% 10 ML SYRINGE IVP SCH ×3 (04:33→17:57)
[2018-04-07] MEDS: ASPIRIN CHEW 81 MG TABLET PO SCH (09:03)
[2018-04-07] MEDS: amLODIPine 5 MG TABLET PO SCH (09:03)
[2018-04-07] MEDS: DONEPEZIL 5 MG TABLET PO SCH (09:03)
[2018-04-07] MEDS: SACCHAROMYCES BOULARDII 250 MG CAPSULE PO SCH ×2 (09:04→17:54)
[2018-04-07] MEDS: ENOXAPARIN 40 MG/0.4 ML SYRINGE SUBQ SCH (09:04)
[2018-04-07] MEDS: MEMANTINE 5 MG TABLET PO SCH (09:04)
[2018-04-07] MEDS: CHOLECALCIFEROL 400 UNIT TABLET PO SCH ×2 (09:04→20:09)
[2018-04-07] MEDS: LISINOPRIL 20 MG TABLET PO SCH ×2 (09:04→20:09)
[2018-04-07] MEDS: POLYETHYLENE GLYCOL 3350 17 GM PACKET PO SCH (09:12)
[2018-04-07] MEDS: SODIUM CHLORIDE FLUSH 0.9% 10 ML SYRINGE IVP PRN ×3 (12:24→20:10)
--- NOTE | 2018-04-07 16:06 | MRI Report ---
Reason: LUMBAR ABCESS Procedure Date: 04/07/2018 Accession Number: [id number] / [id number] Procedure: MRI - Lumbar Spine W/O CPT Code: FULL RESULT: EXAM: MRI LUMBAR SPINE WITHOUT CONTRAST EXAM DATE: 04/07/2018 03:17 PM. CLINICAL HISTORY: 87-year-old female with severe pain, possible abscess. COMPARISON: CT thoracic spine 04/05/2018, CT lumbar spine 04/05/2018 TECHNIQUE: Multiplanar, multisequence T1-weighted and fluid-sensitive sequences of the lumbar spine from T12 to S1 without contrast. Other: None. FINDINGS: Spinal Canal: The conus terminates at T12-L1. The conus medullaris and cauda equina are unremarkable. Alignment: S-shaped thoracolumbar scoliosis with lower thoracic levoscoliosis and lumbar dextroscoliosis. The Deleon angle for the lower thoracic levoscoliosis measures 12 degrees and the Deleon angle for the lumbar dextroscoliosis measures 14 degrees. Grade 1 retrolisthesis T12 and L1 measuring 4 mm. Grade 1 retrolisthesis L1 on L2 measuring 4 mm. Grade 1 retrolisthesis L2 on L3 measuring 5 mm. Bone Marrow: Redemonstration transitional lumbosacral anatomy with lumbarized S1. . No evidence of acute fracture. The bone marrow is diffusely and markedly heterogeneous, nonspecific but favored to represent fatty replacement of the marrow. There is edema within the T12-L1 disk as well as within the adjacent endplates of T12 and L1 vertebral bodies. 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 The adjacent soft tissues demonstrate inflammatory change bilaterally (for example series 502 images 13 and 2). In addition, there is edema associated with the right T12-L1 facet joint (for example series 502 images 11 and 12), concerning for septic facet joint at this level. Small abscesses likely present within the paraspinal soft tissues adjacent to the right T12-L1 facet joint, measuring 13 x 5 mm (series 502 image 11) and slightly more inferiorly 12 x 9 mm (series 502 image 12). Modic type II degenerative endplate changes at the L4-L5 level. Modic type I degenerative endplate changes at L2-L3 level with endplate edema. Modic type I changes may represent a source of pain. Disk Levels/Facets: T12-L1: The level with likely diskitis osteomyelitis. Moderate posterior disk osteophyte complex with superimposed right subarticular protrusion measuring 3 mm. Mild bilateral facet arthropathy. Mild central canal narrowing. Mild right foraminal narrowing. No left foraminal narrowing. L1-L2: Severe disk height loss and desiccation. Moderate diffuse disk bulge with superimposed left far lateral protrusion. Mild bilateral facet arthropathy. Mild central canal narrowing. Severe right and mild left foraminal narrowing. L2-L3: Moderate disk height loss and desiccation. Moderate diffuse disk bulge. Moderate bilateral facet arthropathy and ligamentum flavum hypertrophy. Mild to moderate central canal narrowing. Moderate to severe right and moderate left foraminal narrowing. L3-L4: Moderate to severe disk height loss and desiccation. Large diffuse disk. It severe bilateral facet arthropathy and ligamentum flavum hypertrophy. Moderate to severe central canal narrowing. Moderate to severe left and mild right foraminal narrowing. L4-L5: Large diffuse disk bulge with superimposed bilateral far lateral protrusions. Severe bilateral facet arthropathy and ligamentum flavum hypertrophy. Moderate to severe central canal narrowing. Severe right and moderate to severe left foraminal narrowing.. L5-S1: Severe disk height loss and desiccation. Large diffuse disk bulge with superimposed bilateral far lateral protrusions. Moderate to severe bilateral facet arthropathy. Mild to moderate central canal narrowing. Severe bilateral foraminal narrowing. Musculature: Moderate fatty atrophy of the paraspinal musculature. Redemonstration likely intramuscular abscess within the right quadratus lumborum muscle measuring 27 x 9 mm in maximal transverse dimensions (series 601 image 19). Other: The partially visualized retroperitoneum is unremarkable. IMPRESSION: 1. Edema within the T12-L1 disk as well as within the adjacent endplates of T12 and L1 vertebral bodies. 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 The adjacent soft tissues demonstrate inflammatory change bilaterally (for example series 502 images 13 and 2). 2. In addition, there is edema associated with the right T12-L1 facet joint (for example series 502 images 11 and 12), concerning for septic facet joint at this level. Small abscesses likely present within the paraspinal soft tissues adjacent to the right T12-L1 facet joint, measuring 13 x 5 mm (series 502 image 11) and slightly more inferiorly 12 x 9 mm (series 502 image 12). 3. Redemonstration likely intramuscular abscess within the right quadratus lumborum muscle measuring 27 x 9 mm in maximal transverse dimensions (series 601 image 19). 4. Severe multilevel degenerative spondylosis, as detailed above and summarized below. No evidence of acute fracture. No cord signal abnormality. 5. T12-L1: Mild central canal narrowing. Mild right foraminal narrowing. No left foraminal narrowing. 6. L1-L2: Mild central canal narrowing. Severe right and mild left foraminal narrowing. Recommend correlation for right L1 radicular symptoms. 7. L2-L3: Mild to moderate central canal narrowing. Moderate to severe right and moderate left foraminal narrowing. Recommend correlation for bilateral L2 radicular symptoms. 8. L3-L4: Moderate to severe central canal narrowing. Moderate to severe left and mild right foraminal narrowing. Recommend correlation for left L3 radicular symptoms. 9. L4-L5: Moderate to severe central canal narrowing. Severe right and moderate to severe left foraminal narrowing. Recommend correlation for bilateral L4 radicular symptoms.. 10. L5-S1: Mild to moderate central canal narrowing. Severe bilateral foraminal narrowing. Recommend correlation for bilateral L5 radicular symptoms. Comment: The following findings are so common in adults without low back pain that while we report their presence, they must be interpreted with caution and in the context of the clinical situation. (Reference Jarvik et al, Spine 2001) Prevalence of findings in patients without low back pain: Disk degeneration (any evidence): 92% Disk desiccation/T2 signal loss: 83% Disk height loss: 56% Disk bulge: 64% Disk protrusion: 32% Annular tear/high intensity zone: 38% RADIA The above findings were discussed with Kristan Villanueva by Dr. Zoe Cardona at 16:04 hrs on 04/07/18.
[2018-04-07] MEDS: ATORVASTATIN 10 MG TABLET PO SCH (20:09)
[2018-04-07] MEDS: FAMOTIDINE 20 MG TABLET PO SCH (20:10)
[2018-04-08] MEDS ORDERED: ALBUTEROL NEB 2.5 MG/3 ML INH PRN (02:01)
[2018-04-08] MEDS: ceFAZolin 1 GM in SODIUM CHLORIDE 0.9% MINIBAG 100 ML IV SCH ×3 (06:18→20:22)
[2018-04-08] MEDS: SODIUM CHLORIDE FLUSH 0.9% 10 ML SYRINGE IVP SCH ×3 (06:22→20:22)
[2018-04-08] MEDS: SODIUM CHLORIDE FLUSH 0.9% 10 ML SYRINGE IVP PRN ×2 (06:22→20:22)
--- NOTE | 2018-04-08 07:25 | PROVIDER PROGRESS NOTE ---
Subjective - Prog Note Date Prog Note Date: 04/07/18 Prog Note Time: 20:20 - Subjective Pt reports feeling: No change Subjective: She has been stable throughout the day. No fever, no elevated white cell count. In reviewing the case she presented with fever and altered mental status and a lady with dementia. Her initial workup was completely negative with regards to lung source, abdominal source, and chest x-ray was negative with negative UA and a negative abdominal exam as well as CT abd. She had bilateral thoracentesis for diagnosis and her cultures were negative in the fuid. Her blood cultures grew out staph aureus for the , , and . She had an echo looking for vegetations. Because she has chronic back pain a CT of the spine was done on the neck, thoracic and lumbar spine on the . On the she was found to have a fluid collection that may be an abscess in the lumbar area. I then ordered an MRI today and found her to have possible osteomyelitis, discitis, and micro abscesses as well as large fluid collection per radiology report. I have spoken to [facility] transfer center over several phone calls. I have also spoken to Dr. Soraya Benitez who is infectious disease. The neurosurgeon there does not feel that she would be a case for their facility. He does not feel she has infection. He sees the fluid but not that he has abcess or osteo. But both infectious disease and neurosurgery feel the patient should be transferred to higher level of care, just not necessarily their facility. I then spoke to [facility] at [facility]. I spoke to their neurosurgeon who is very definitive that he would not operate on this unfortunate female. Her age and core morbidities would make surgery a higher risk and risk outweighs benefit. He is willing to consult on the case because he does feel that possibly a biopsy and a drainage of the fluid would be in order for her. I then spoke to the hospitalist on-call, and while she does agree that the patient should come to them, they are requesting that the patient stay here overnight and be transferred tomorrow morning. They have assured me that they will keep a bed open. I have let her son know. His name is Heber Small and I have spoken to him at [phone] through the course of the day to keep him apprised of the sit uation. Objective - Vital Signs/Intake & Output Reviewed Vital Signs: Yes Vital Signs: Vital Signs x48h Temp Pulse Pulse Resp BP Pulse Ox 04/08/18 01:51 36.8 C 77 20 96 04/07/18 23:58 36.8 C 77 20 151/60 H 96 Intake & Output: Intake & Output 04/05/18 04/06/18 04/07/18 04/08/18 23:59 23:59 23:59 23:59 Intake Total 1610 1230 1500 350 Output Total 800 Balance 810 1230 1500 350 - Objective General Appearance: positive: No acute distress, Alert Eyes Bilateral: positive: PERRL ENT: positive: Pharynx nml Neck: negative: Stiff neck, Carotid bruit Respiratory: positive: Chest non-tender. negative: Wheezes, Rales, Rhonchi Cardiovascular: positive: Regular rate & rhythm. negative: Gallop/S4, Friction rub Abdomen: positive: Non-tender, No organomegaly, Nml bowel sounds Extremities: positive: Non-tender, Full ROM, No pedal edema Neurologic/Psychiatric: positive: CN's nml (2-12) (Except she is deaf), Disoriented to place, Disoriented to time, Weakness (She is able to dangle at the side of the bed, stand, and walk with a gait belt. But at times she needs to sit in a wheelchair to be wheeled to the bathroom. There is no focal neurologic deficit or cauda equina syndrome right now.) - Lab Results Fish Bones: 04/06/18 06:24 04/06/18 06:24 ABX Reporting Has patient been on IV antibiotics over the past 48 hours?: Yes Assessment/Plan - Problem List (1) Abscess of paraspinal muscles Impression: The patient presented with fever on admission 10 days ago. Blood cultures positive for staph aureus sensitive to Ancef. Not MRSA. In searching for the source of infection, we have found her to have an abscess of the paraspinal musc les. Plan: Transfer to [facility] tomorrow. Hopefully interventional radiology will be able to drain fluid and send it off for analysis to prove one way or another if it is an abscess or inflammatory fluid collection. Also needs biopsy of the bone to prove if it is osteo which would require weeks of abx. Son is aware. If she does need abx, he requests that the be transferred to [facility] to complete the treatment once there is definitive diagnosis and treatment plan. This woman also still has a knee effusion. And may need a transesophageal echo looking for vegetations. Current transthoracic echo is normal. (2) Staph aureus bacteremia. Assessment/Plan: Source is ? back abcess but she may have other source that needs workup at [facility] including KEYSHA. Originally on vancomycin when she came in on the . Switched to Levaquin on March 31. After ID consult she was switched to Ancef April 05. Echocardiogram in March 29 shows left ventricle size is normal. Wall thickness normal. Ejection fraction 55-60%. Right ventricle normal in size and function. Mild tricuspid regurgitation. Right ventricular systolic pressure at rest is 52 mmHg. No mass or vegetations. Chest x-ray March 29 with right base atelectasis. Chest x-ray March 31 with interval development of airspace disease in the left infrahilar region, possibly pneumonia. Otherwise stable. Knee x-ray right and left knee shows postoperative changes on the left knee from knee replacement, degenerative changes bilaterally, calcific periarthritis on the right. Chondrocalcinosis compatible with pseudogout. Cervical spine CT with degenerative disc and facet changes, varying degrees of central canal stenosis and varying degrees of neural foraminal stenosis. Lumbar CT with disc osteophyte complexes at multiple levels. Soft tissue swelling in the right quadratus lumborum muscle with ovoid fluid collection anand uring 1.5 x 2.4 x 8.7 cm. Consolidation and small right pleural effusion partially visualized. Small hiatal hernia. Moderate to severe atherosclerosis in the MDM abdominal aorta. Multiple sigmoid diverticula. Thoracic spine CT with moderate degenerative disc and facet changes. Mild central canal stenosis. Patchy consolidation right lower lobe. Lower extremity CT with large right knee effusion with small focus of very low attenuation in the superior lateral aspect of the joint. A unicompartmental prosthesis in the medial compartment of left knee. Lumbar spine MRI today she has redemonstration of intramuscular abscess within the right quadratus lumborum muscle measuring 27 x 9 mm. Edema associated with the right T12-L1 facet joint concerning for septic facet joint. Small abscess likely present within the paraspinal soft tissues adjacent to the right and slightly more inferiorly. There is felt to be discitis osteomyelitis at T12-L1. Moderate protrusion and disc osteophyte complex with superimposed right subarticular protrusion measuring 3 mm. She has large disc bulges at multiple levels with severe bilateral facet arthropathy and ligamentum flavum hypertrophy. Moderate to severe central canal narrowing depending on which disc you look at. (3) Knee effusion, right Assessment/Plan: As in #1 (4) Hyponatremia Assessment/Plan: Fluctuating. Will continue iv saline replacement. Monitor BMP daily. (5) UTI (urinary tract infection) Qualifiers: Urinary tract infection type: acute cystitis Hematuria presence: without hematuria Qualified Code(s): N30.00 - Acute cystitis without hematuria Assessment/Plan: No symptoms of dysuria and she remains on antibiotics. she has completed therapy for a UTI. (6) Dementia Qualifiers: Dementia type: unspecified type Dementia behavioral disturbance: without behavioral disturbance Qualified Code(s): F03.90 - Unspecified dementia without behavioral disturbance Assessment/Plan: Stable on 2 meds. (7) Pneumonia Qualifiers: Laterality: left Lung location: lower lobe of lung Assessment/Plan: No respiratory complaints. 96% on room air. (8) Pleural effusion Assessment/Plan: Resolved by CXR and without respiratory symptoms. she is s/p bilateral thoracentesis of loculated pleural effusions on 04/01 and those cultures are negative.
[2018-04-08] MEDS: IPRATROPIUM/ALBUTEROL 3 ML NEB INH SCH ×2 (08:14→20:38)
[2018-04-08] MEDS: BUDESONIDE 0.5 MG/2 ML NEB INH SCH ×2 (08:14→20:38)
[2018-04-08] MEDS: DONEPEZIL 5 MG TABLET PO SCH (08:50)
[2018-04-08] MEDS: LISINOPRIL 20 MG TABLET PO SCH ×2 (08:50→20:21)
[2018-04-08] MEDS: SACCHAROMYCES BOULARDII 250 MG CAPSULE PO SCH ×2 (08:50→17:12)
[2018-04-08] MEDS: CHOLECALCIFEROL 400 UNIT TABLET PO SCH ×2 (08:50→20:21)
[2018-04-08] MEDS: MEMANTINE 5 MG TABLET PO SCH (08:50)
[2018-04-08] MEDS: amLODIPine 5 MG TABLET PO SCH (08:50)
[2018-04-08] MEDS: POLYETHYLENE GLYCOL 3350 17 GM PACKET PO SCH (08:51)
[2018-04-08] MEDS: ASPIRIN CHEW 81 MG TABLET PO SCH (08:51)
[2018-04-08] MEDS: ENOXAPARIN 40 MG/0.4 ML SYRINGE SUBQ SCH (08:51)
[2018-04-08] MEDS: ACETAMINOPHEN 325 MG TABLET PO PRN ×2 (08:51→20:21)
--- NOTE | 2018-04-08 13:35 | PROVIDER PROGRESS NOTE ---
Subjective - Prog Note Date Prog Note Date: 04/08/18 Prog Note Time: 13:36 - Subjective Pt reports feeling: No change Subjective: She is a delightful elderly woman. Sitting upright in her chair. Watching TV with a sound off. Has eaten breakfast and lunch without any difficulty. She really does not remember me from one visit to the next. I seen her 3 times a day and each time she greets me cheerfully and asked "where have I been" but cannot tell me my name. She says that the only thing that hurts is her back. But then she medicates that by saying "my back always hurts". She is still able to sit up and transfer and stand and walk to a chair, walk to bedside commode or commode. Needs a walker. Nursing help. There have been no fever, no rigors. Current Medications - Current Medications Current Medications: Active Medications Acetaminophen (Tylenol) 650 mg PO Q4HR PRN PRN Reason: Pain 1 to 4 Last Admin: 04/08/18 08:51 Dose: 650 mg Albuterol () 2.5 mg INH RTQ4H PRN PRN Reason: Wheezing Albuterol/Ipratropium (Duoneb) 3 ml INH RTBID [facility] Last Admin: 04/08/18 08:14 Dose: 3 ml Amlodipine Besylate (Norvasc) 2.5 mg PO DAILY [facility] Last Admin: 04/08/18 08:50 Dose: 2.5 mg Aspirin ([place] Isidro Aspirin) 81 mg PO DAILY [facility] Last Admin: 04/08/18 08:51 Dose: 81 mg Atorvastatin Calcium (Lipitor) 10 mg PO QPM [facility] Last Admin: 04/07/18 20:09 Dose: 10 mg Bacitracin (Bacitracin) 1 packet TOP PRN PRN PRN Reason: Skin Care Last Admin: 04/06/18 20:30 Dose: 1 packet Budesonide (Pulmicort) 0.5 mg INH RTBID [facility] Last Admin: 04/08/18 08:14 Dose: 0.5 mg Cholecalciferol (Vitamin D3) 400 unit PO BID [facility] Last Admin: 04/08/18 08:50 Dose: 400 unit Donepezil HCl (Aricept) 10 mg PO DAILY [facility] Last Admin: 04/08/18 08:50 Dose: 10 mg Enoxaparin Sodium (Lovenox) 40 mg SUBQ DAILY [facility] Last Admin: 04/08/18 08:51 Dose: 40 mg Famotidine (Pepcid) 20 mg PO QPM [facility] Last Admin: 04/07/18 20:10 Dose: 20 mg Sodium Chloride (Normal Saline 0.9%) 1,000 mls @ 0 mls/hr IV .Q0M [facility] Last Infusion: 04/02/18 18:38 Dose: Infused Cefazolin Sodium 1 gm/ Sodium (Chloride) 100 mls @ 200 mls/hr IV Q8H [facility] Last Admin: 04/08/18 12:10 Dose: 200 mls/hr Ibuprofen (Motrin) 600 mg PO Q6HR PRN PRN Reason: Pain 1 to 4 Last Admin: 04/02/18 02:55 Dose: 600 mg Lisinopril (Zestril) 20 mg PO BID [facility] Last Admin: 04/08/18 08:50 Dose: 20 mg Memantine (Namenda) 10 mg PO DAILY [facility] Last Admin: 04/08/18 08:50 Dose: 10 mg Mineral Oil (Cavilon) 1 applic TOP PRN PRN PRN Reason: Skin Care Multi-Ingredient Ointment (Zinc Oxide) 1 applic TOP PRN PRN PRN Reason: Skin Care Ondansetron HCl (Zofran Inj) 4 mg IVP Q6HR PRN PRN Reason: Nausea / Vomiting Polyethylene Glycol (Miralax) 17 gm PO DAILY [facility] Last Admin: 04/08/18 08:51 Dose: Not Given Prochlorperazine Edisylate (Compazine Inj) 10 mg IVP Q6HR PRN PRN Reason: Nausea / Vomiting Promethazine HCl (Phenergan Inj) 25 mg IM Q6HR PRN PRN Reason: Nausea / Vomiting Saccharomyces Boulardii (Florastor) 250 mg PO BIDWM [facility] Last Admin: 04/08/18 08:50 Dose: 250 mg Sodium Chloride (Normal Saline Flush 0.9%) 10 ml IVP PRN PRN PRN Reason: NEEDED PER PROVIDER ORDERS Last Admin: 04/08/18 06:22 Dose: 10 ml Sodium Chloride (Normal Saline Flush 0.9%) 10 ml IVP 0100,0900,1700 [facility] Last Admin: 04/08/18 08:50 Dose: 10 ml Aspirin 81 mg PO DAILY 03/28/18 Atorvastatin [Lipitor] 10 mg PO QPM 03/28/18 Donepezil [Aricept] 10 mg PO QPM 03/28/18 Ipratropium [Atrovent] 1 puffs INH BID 03/28/18 Memantine HCl 10 mg PO DAILY 03/28/18 Triamterene/Hydrochlorothiazid [Triamterene-Hctz 75-50 mg Tab] 1 tab PO DAILY 03/28/18 Albuterol Sulf [Ventolin Hfa Inhaler] 2 puffs INH QID PRN 03/29/18 Calcium Carbonate/Vitamin D3 [Calcium 500-Vit D3 200 Tablet] 1 tab PO TID Cholecalciferol (Vitamin D3) [Vitamin D3] 400 unit PO BID 03/29/18 Fluticasone 110 Mcg [Flovent] 2 puffs INH BID 03/29/18 Lisinopril 20 mg PO BID 03/29/18 amLODIPine [Norvasc] 2.5 mg PO DAILY 03/29/18 Objective - Vital Signs/Intake & Output Reviewed Vital Signs: Yes Vital Signs: Vital Signs x48h Temp Pulse Pulse Resp BP Pulse Ox 04/08/18 08:15 66 15 04/08/18 08:00 36.6 C 77 20 147/59 H 96 Intake & Output: Intake & Output 04/05/18 04/06/18 04/07/18 04/08/18 23:59 23:59 23:59 23:59 Intake Total 1610 1230 1500 1500 Output Total 800 Balance 810 1230 1500 1500 - Objective General Appearance: positive: No acute distress, Alert Eyes Bilateral: positive: PERRL ENT: positive: Pharynx nml Neck: positive: No JVD. negative: Stiff neck, Carotid bruit Respiratory: positive: Chest non-tender. negative: Wheezes, Rales, Rhonchi Cardiovascular: positive: Regular rate & rhythm, Systolic murmur. negative: Gallop/S4, Friction rub Abdomen: positive: Non-tender, No organomegaly, Nml bowel sounds, No distention Skin: positive: Warm, Dry Extremities: positive: No pedal edema, Other (right knee slightly contracted adn can't do full extension bc of effusion.) Neurologic/Psychiatric: positive: CN's nml (2-12), Motor nml (but shuffling gait, needs prompting on how to put feet down and move forward.), Disoriented to person, Disoriented to place, Disoriented to time. negative: Facial droop, Slurred/abnml speech - Lab Results Fish Bones: 04/06/18 06:24 04/06/18 06:24 ABX Reporting Has patient been on IV antibiotics over the past 48 hours?: Yes Assessment/Plan - Problem List (1) Abscess of paraspinal muscles Impression: The patient presented with fever on admission 10 days ago. Blood cultures po sitive for staph aureus sensitive to Ancef. Not MRSA. In searching for the source of infection, we have found her to have an abscess of the paraspinal muscles and osteomyelitis of T12. Plan: No transfer to [facility] today. New crew feels she does not need higher level of care. Interventional radiology does not feel need to drain fluid and send it off for analysis to prove one way or another if it is an abscess or inflammatory fluid collection. Also no need biopsy of the bone to prove if it is osteo which would require weeks of abx. Son is aware. He is accepting us treating as osteo and a bcess w abx and no transfer. This woman also still has a knee effusion. 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 Assessment/Plan: Source is ? back abcess but she may have other source that needs workup. After speaking to [facility] again today, they have declined taking the patient in transfer even though they accepted her last night. The current roundhouse firer/fireman is very apologetic. She says that Dr. Hinson and the roundhouse firer/fireman Irais Santa spoke out of turn. They should never have accepted the patient in transfer and then promise a bed today. I had our radiologist, Dr. Raygoza, speak to their interventional radiology, Dr. Rosado, and there is no procedure that he feels is required for this patient at this time (no draining of abcess or biopsy for osteo). Neurosurgery made it clear last night that he would not want to operate. The only thing left to prove is whether she has endocarditis and that would be a transesophageal echo. I spoke to [facility] launderette attendant on-call, Dr. Pulliam, and he cautiously feels that we do not need to prove endocarditis. With this woman's age and dementia, it would not be out of the realm of reasonableness to treat her presumptively as endocarditis and osteomyelitis with antibiotics for the next 6 weeks. I spoke to her son, Heber Small, and explained all of the above. I was apologetic and explained that between yesterday and today there have been many conflicting opinions. Many different conclusions and treatment plans from different neurosurgeons, different radiologist, but the upshot is that there are no facilities that have beds for her yesterday or today. It would be difficult to transfer her because they do not feel that they need to offer a higher level of care at this time. This is in contradistinction to previously being told that she did need a higher level of care. Mr. Small was very accommodating. He understood what I was saying. He said is acceptable to keep her here. As such, I will have a PICC line placed, prepare the patient to get antibiotics for the next 6-8 weeks. I called Starr Elizondo from Anesthesia and left message on her VM We will follow C-reactive protein on an every other day basis. I have also spoken to our radiologist, Dr. Raygoza, and he does not feel that the 2 x 8 cm abscess in the muscle needs to be drained. Originally on vancomycin when she came in on the . Switched to Levaquin on March 31. After ID consult she was switched to Ancef April 05. 6 weeks of IV abx would make it 05/16/2018. Echocardiogram in March 29 shows left ventricle size is normal. Wall thickness normal. Ejection fraction 55-60%. Right ventricle normal in size and function. Mild tricuspid regurgitation. Right ventricular systolic pressure at rest is 52 mmHg. No mass or vegetations. Chest x-ray March 29 with right base atelectasis. Chest x-ray March 31 with interval development of airspace disease in the left infrahilar region, possibly pneumonia. Otherwise stable. Knee x-ray right and left knee shows postoperative changes on the left knee from knee replacement, degenerative changes bilaterally, calcific periarthritis on the right. Chondrocalcinosis compatible with pseudogout. Cervical spine CT with degenerative disc and facet changes, varying degrees of central canal stenosis and varying degrees of neural foraminal stenosis. Lumbar CT with disc osteophyte complexes at multiple levels. Soft tissue swelling in the right quadratus lumborum muscle with ovoid fluid collection measuring 1.5 x 2.4 x 8.7 cm. Consolidation and small right pleural effusion partially visualized. Small hiatal hernia. Moderate to severe atherosclerosis in the MDM abdominal aorta. Multiple sigmoid diverticula. Thoracic spine CT with moderate degenerative disc and facet changes. Mild central canal stenosis. Patchy consolidation right lower lobe. Lower extremity CT with large right knee effusion with small focus of very low attenuation in the superior lateral aspect of the joint. A unicompartmental prosthesis in the medial compartment of left knee. Lumbar spine MRI today she has redemonstration of intramuscular abscess within the right quadratus lumborum muscle measuring 27 x 9 mm. Edema associated with the right T12-L1 facet joint concerning for septic facet joint. Small abscess likely present within the paraspinal soft tissues adjacent to the right and slightly more inferiorly. There is felt to be discitis osteomyelitis at T12-L1. Moderate protrusion and disc osteophyte complex with superimposed right subarticular protrusion measuring 3 mm. She has large disc bulges at multiple levels with severe bilateral facet arthropathy and ligamentum flavum hypertrophy. Moderate to severe central canal narrowing depending on which disc you look at. (3) Knee effusion, right Assessment/Plan: As in #1 (4) Hyponatremia Assessment/Plan: Fluctuating. will stop IVF today. Monitor BMP every other day. (5) UTI (urinary tract infection) Qualifiers: Urinary tract infection type: acute cystitis Hematuria presence: without hematuria Qualified Code(s): N30.00 - Acute cystitis without hematuria Assessment/Plan: No symptoms of dysuria and she remains on antibiotics. she has completed therapy for a UTI. (6) Dementia Qualifiers: Dementia type: unspecified type Dementia behavioral disturbance: without behavioral disturbance Qualified Code(s): F03.90 - Unspecified dementia without behavioral disturbance Assessment/Plan: Stable on 2 meds. (7) Pneumonia Qualifiers: Laterality: left Lung location: lower lobe of lung Assessment/Plan: No respiratory complaints. 96% on room air. (8) Pleural effusion Assessment/Plan: Resolved by CXR and without respiratory symptoms. she is s/p bilateral thoracentesis of loculated pleural effusions on 04/01 and those cultures are negative.
[2018-04-08] MEDS: ATORVASTATIN 10 MG TABLET PO SCH (20:21)
[2018-04-08] MEDS: FAMOTIDINE 20 MG TABLET PO SCH (20:21)
[2018-04-09] MEDS: ceFAZolin 1 GM in SODIUM CHLORIDE 0.9% MINIBAG 100 ML IV SCH ×2 (03:40→12:18)
[2018-04-09] MEDS: SODIUM CHLORIDE FLUSH 0.9% 10 ML SYRINGE IVP SCH ×3 (03:40→14:01)
[2018-04-09] MEDS: ACETAMINOPHEN 325 MG TABLET PO PRN (04:39)
[2018-04-09 07:52] LABS: BASOPHILS # (AUTO) 0.1 10^3/uL (0.0-0.1); BASOPHILS % (AUTO) 1.1 %; EOSINOPHILS # (AUTO) 0.1 10^3/uL (0.0-0.7); EOSINOPHILS % (AUTO) 1.3 %; LYMPHOCYTES % (AUTO) 17.9 %; MEAN CORPUSCULAR HEMOGLOBIN 27.6 pg (27.0-31.0); MEAN CORPUSCULAR HGB CONC 32.8 g/dL (32.0-36.0); MEAN CORPUSCULAR VOLUME 84.2 fL (81.0-99.0); MEAN PLATELET VOLUME 6.2 fL (7.9-10.8); MONOCYTES # (AUTO) 0.8 10^3/uL (0.0-1.0); MONOCYTES % (AUTO) 6.8 %; NEUTROPHILS # (AUTO) 8.3 10^3/uL (1.5-6.6); NEUTROPHILS % (AUTO) 72.9 %; PLT - PLATELET COUNT 491 10^3/uL (130-450); RED BLOOD COUNT 3.98 10^6/uL (4.20-5.40); WHITE BLOOD COUNT 11.3 x10^3/uL (4.8-10.8)
[2018-04-09] MEDS: IPRATROPIUM/ALBUTEROL 3 ML NEB INH SCH (08:22)
[2018-04-09] MEDS: BUDESONIDE 0.5 MG/2 ML NEB INH SCH (08:22)
[2018-04-09 08:29] LABS: ALBUMIN/GLOBULIN RATIO 0.8 (1.0-2.2); BILIRUBIN,TOTAL 0.4 mg/dL (0.2-1.0); CALCIUM 9.3 mg/dL (8.5-10.3); CREATININE 0.8 mg/dL (0.4-1.0); CRP HIGH SENSITIVITY 49.3 mg/L; TOTAL PROTEIN 6.9 g/dL (6.7-8.2)
[2018-04-09] MEDS ORDERED: ACETAMINOPHEN 325 MG TABLET PO SCH (09:00)
[2018-04-09] MEDS: LISINOPRIL 20 MG TABLET PO SCH (09:14)
[2018-04-09] MEDS: SACCHAROMYCES BOULARDII 250 MG CAPSULE PO SCH (09:14)
[2018-04-09] MEDS: DONEPEZIL 5 MG TABLET PO SCH (09:14)
[2018-04-09] MEDS: amLODIPine 5 MG TABLET PO SCH (09:14)
[2018-04-09] MEDS: ASPIRIN CHEW 81 MG TABLET PO SCH (09:14)
[2018-04-09] MEDS: MEMANTINE 5 MG TABLET PO SCH (09:14)
[2018-04-09] MEDS: CHOLECALCIFEROL 400 UNIT TABLET PO SCH (09:14)
[2018-04-09] MEDS: ENOXAPARIN 40 MG/0.4 ML SYRINGE SUBQ SCH (09:15)
[2018-04-09] MEDS: POLYETHYLENE GLYCOL 3350 17 GM PACKET PO SCH (09:15)
--- NOTE | 2018-04-09 11:07 | Discharge Plan ---
"Discharge Plan for SNF / [facility] - Discharge Plan And Transition Orders Disposition: 03 SNF DC/Xfer Condition: Stable Allergies and Adverse Reactions: Allergies Allergy/AdvReac Type Severity Reaction Status Date / Time No Known Drug Allergies Allergy Verified 03/28/18 16:27 - SNF / SNF Transition Orders Admit to (Facility): [facility] Under the care of (Name): Jayleen Maey is PCP/Kenney Nation MD Discharge Diagnosis: 1. Febrile metabolic encephalopathy resolved 2. Suspected endocarditis 3. Osteomyelitis of T-spine 4. Abscess of quadratus lumborum muscle 8 cm x 2 cm 5. Alzheimer's dementia without any behavioral disorder 6. Right knee effusion 7. UTI 8. Hyponatremia 9. Pneumonia with pleural effusion 10. History of breast cancer, status post mastectomy 11. Asthma 12. Hyperlipidemia 13. Nasal congestion 14. Hypertension 15. Chronic back pain Medicare Certification Statement: I certify that [facility] is medically necessary on a continuing basis for any of the conditions for which she/he is receiving care during hospitalization. Notify PCP of admission and forward orders to primary provider for signature. Weight on admission and: Weekly Call PCP immediately if weight increases by: 3 kg Other Notification Orders: Call PCP immediately if patient develops dyspnea, chest pain/tightness or edema. House Bowel Program: Yes Additional Bowel Program Orders: If no BM after 2 days, nurse may give M.O.M. 30ml PO PRN and/or ducolax Supp 1 [place] and/or EUNICE 250mg P.O., and/or senna 1-2 tabs PO. On day 3 nurse may give repeat above order until residents constipation is resolved. Annual Influenza Vaccine (between Jan 10 and August 09): Yes Two-step PPD per [facility] [id number] or approved exception documents: Yes Lab Tests or X-ray Orders: C-reactive protein every Friday Medication Orders: PLEASE REFER TO THE DISCHARGE MEDICATION LIST. Insulin Orders?: No - Medications New Prescriptions: Cefazolin Sodium in 0.9 % NaCl [Cefazolin 1 G/10 ml-Ns Syringe] 1 gm IV Q8H #120 syringe - Diet Type: Geriatric Texture: Regular Liquids: Thin May have monthly special meal: Yes - Therapies | Activity Therapy: Evaluation | Treat if indicated: PT, OT Rehabilitation Potential: Return to independent living (Family wants her to return to SNF where she was before after tx for infection) Activity: Activity as Tolerated (right knee effusion limits mobility endurance to walk far) Weight Bearing: Full Weight Assistance Devices: Walker (with gait belt)"
[2018-04-09] MEDS ORDERED: SODIUM CHLORIDE FLUSH 0.9% 10 ML SYRINGE ONE (12:12)
[2018-04-09 14:00] VITALS: BP 162/62
[2018-04-09] MEDS: SODIUM CHLORIDE FLUSH 0.9% 10 ML SYRINGE IVP PRN (14:01)
--- NOTE | 2018-04-09 17:44 | DISCHARGE SUMMARY ---
Physician: Kristan Villanueva MD DATE OF ADMISSION: 03/29/2018 DATE OF DISCHARGE: 04/09/2018 DISCHARGE DIAGNOSES 1. Febrile metabolic encephalopathy. 2. Suspected endocarditis. 3. Osteomyelitis of T-spine. 4. Abscess of quadratus lumborum muscle. 5. Right knee effusion. 6. Urinary tract infection. 7. Alzheimer's dementia without any behavioral disorder. 8. Hyponatremia. 9. Pneumonia with pleural effusion. 10. History of breast cancer, status post mastectomy. 11. Asthma. 12. Nasal congestion from allergic rhinitis. 13. Hypertension. 14. Hyperlipidemia. 15. Chronic back pain. DISCHARGE MEDICATIONS 1. Ibuprofen 600 mg p.o. q.6 hours p.r.n. pain. 2. Tylenol 650 mg p.o. t.i.d. not p.r.n. for pain. 3. Albuterol via nebulizer every 4 hours p.r.n. wheezing. 4. Norvasc 2.5 mg daily. 5. Aspirin 81 mg daily. 6. Lipitor 10 mg daily. 7. Calcium with vitamin D tablet 3 times a day. 8. Ancef 1 gram every 8 hours. 9. Vitamin D 400 units p.o. b.i.d. 10. Aricept 10 mg p.o. at night. 11. Flovent nasal spray 110 mcg 2 puffs each nostril twice a day for nasal congestion. 12. DuoNeb via nebulizer b.i.d. 13. Lisinopril 20 mg p.o. b.i.d. 14. Memantine 10 mg p.o. daily. 15. Triamterene with hydrochlorothiazide 75/50 mg p.o. daily. PRINCIPAL PROCEDURES 1. Chest x-ray compared to 03/28/2018 showed right base atelectasis. 2. Repeat chest x-rays 03/31/2018 and 04/06/2018 showed interval PICC line placement, no pneumonia. 3. Abdomen and pelvis CT with loculated predominantly right subpulmonic effusion with scant consolid ation. Periumbilical hernia containing a portion of bowel. 4. Knee x-rays of right and left knee. Right knee with 3 compartment joint space narrowing, worse i n the medial compartment, chondrocalcinosis compatible with pseudogout, and left knee had medial bianka arthroplasty. No definite effusion. 5. Thoracentesis of right and left pleural effusions. 6. Cervical spine CT with moderate to severe degenerative disk and facet changes diffusely, and vary ing degrees of central canal stenosis and neural foramen stenosis. 7. Lumbar spine CT with a 1.5 x 2.4 x 8.7 cm abscess in the right quadratus lumborum due to extensio n from infection, possibly from right lower lobe. Klyrffoy-ul-lycqjf degenerative disk and facet kimi nges. Varying degrees of canal stenosis. Varying degrees of neural foraminal stenosis. 8. Thoracic spine CT with patchy consolidation right lower lobe and small pleural effusion. Mild to moderate degenerative disk and facet changes. 9. Lower extremity CT of bilateral knees. Large right knee joint effusion with synovitis. No joint effusion, left knee. Unicompartmental prosthesis of the medial compartment of the left knee. Moder ate to severe degenerative changes. 10. Lumbar spine MRI with edema at T12-L1 disk as well as within the adjacent endplates of T12 and L 1 vertebral bodies concerning for diskitis, osteomyelitis. Adjacent soft tissues demonstrate inflamm atory changes bilaterally. Edema of the right T12-L1 facet joint concerning for septic facet joint. Small micro abscesses likely present within the paraspinal soft tissues adjacent to right T12-L1 fac et joint measuring 13 x 5 mm and slightly more inferiorly at 12 x 9 mm. Re-demonstration of intramus cular abscess within the right quadratus lumborum muscle measuring 27 x 9 in the maximal transverse d imensions and close to 9 cm longitudinally. 11. Echocardiogram showing a left ventricle that is normal in size and thickness with ejection fract ion 55-60%. Right ventricle normal in size and function. Mild tricuspid regurgitation. Moderately abnormal right heart pressures. Right ventricular systolic pressure at rest 52 mmHg. No valvular ve getations noted. 12. Blood cultures in both arms 03/28/2018, 03/29/2018, 03/30/2018, and 03/31/2018 all show methicil melina-sensitive Staph aureus. Blood cultures 04/01/2018, 04/02/2018, 04/03/2018, and 04/04/2018 are ne gative for any growth. 13. Pleural fluid cultures are negative. 14. Urine culture has less than 10,000 polymicrobial colonies of bacteria including potential pathog ens. HOSPITAL COURSE: The patient is a very exceedingly delightful demented 87-year-old who is a very poo r historian, lives in an assisted living facility, [facility]. She has a history of hypertension, hyper lipidemia, pericardial cyst, breast cancer with a mastectomy, and osteoarthritis with a knee replacem ent. She also has allergies and asthma. She was in her normal state of health until the day before admission, when she began appearing lethargic. She also had a fever to 103. She was sent from the [facility] to the emergency department. She had a leukocytosis of 16.6 but was afebrile , and lactic acid 1.5. Creatinine was 1.2 and BUN was 31. She had a UTI and therefore she was given a dose of IV antibiotics in the emergency room with IV fluids. She appeared to perk up and was disc harged back to [facility] with oral antibiotics. During that workup, she did have bloo d cultures done. On the day of admission, the lab called the ER physician to let them know that the blood cultures from the day before were positive for gram-positive cocci in clusters, most likely Sta phylococcus aureus. As such, the emergency room physician called [facility] and asked for the patient t o be brought back to the emergency department. On the morning of admission, the patient was slightly hypoxic with an oxygen saturation of 87% and wa s febrile. She did not know why she was here, she did not recognize that she was in the hospital, an d had no complaints. On review of systems she was negative. She had a temperature of 101.2, tachycardic at 100, slightly hypertensive with a blood pressure of 16 0/103. She underwent lab work and was found to have a leukocytosis of 12, mild hyponatremia of 132, hypokalemia with potassium 3.3, creatinine 1.1. Chest x-ray showed a right basilar atelectasis versu s fat pad. Urinalysis was felt to be possibly contaminated, but nevertheless sent for culture. HOSPITAL COURSE: The patient had daily blood cultures and grew out methicillin-sensitive Staphylococ cus aureus from the to the . Frequent exams were done in an effort to try and locate the ca use of this woman's infection. She was given vancomycin in the emergency room, and the workup for th e source of this infection continued. She was also treated as a UTI, but was felt to have a contamin ant on that culture. That was treated with ceftriaxone. She appeared to be mildly dehydrated and re ceived IV fluids for that creatinine of 1.1. Potassium was supplemented. Sodium of 132 was followed . Workup was extensive. Echocardiogram was done and showed no vegetations. She did have a pericardial cyst noted. Infectious disease was consulted at [facility]. Eventually, because the patient was describing back pain, imaging studies were done of the back. She was found to have an ab scess that is large at 2.8 cm and close to 2.9 cm. Probable evidence of osteomyelitis/diskitis and s oft tissue infection. Could this be a continuum of infection from the lung or could this be endocard itis? Her antibiotics were switched to Ancef per ID recommendation and she was continued on those fo r the rest of her stay. Many conversations were had between transfer centers at [facility] and [facility] over the course of 04/07/2018 and 04/08/2018. Infectious disease at [facility] felt that the patient should be transferred for higher level of care because of the severity of infection , signs of infection, and the fact that we needed to establish if she had endocarditis and needed a t ransesophageal echo. In speaking to neurosurgery at [facility] they felt that this pat ient was not a candidate for their services. They felt that while she did need a higher level of car e, it was not necessarily their facility she should go to. As such, I approached [facility]. After speaking to neurosurgery at [facility], that neurosurgeon also felt that she was not a surgical candidate. She did not need a bone biopsy to prove it was osteomyelitis, and he felt that interventional radiology could possibly do the drainage of the abscess. While he would be happy to consult if the patient was admitted to the medical service, neurosurgical services were not felt to b e appropriate for her. I then spoke to the development coordinator who had already spoken to Dr. Hinson, the triage hospitalist. They declined without speaking to me about the case. I then requested to sp jordyn to the hospitalist in person. Dr. Hinson felt that our facility, although it was a critical access hospital, could handle this case with no neurosurgical intervention required and Dr. Rosado, intervent ional radiology, declining to do an intervention, she felt no need for the patient to be transferred. Initially, she did agree that a higher level of care might be necessary, but said that they were ve ry busy, or boarding patients, had very few beds to offer us, and we could we please hold on to her o vernight. The development coordinator, Irais Santa, guaranteed a bed for me the next morning when I protested and said I would really like to transfer her that night because I knew they really could no t guarantee us a bed. Nevertheless, Ms. Santa reassured me that there would be a bed available for this patient. On the morning of 04/08/2018, I spoke to a new development coordinator who flatly said that there were n o beds available, and no they did not have a bed for this patient, even though I explained that MsMonique simon, the night before, stated there would be a bed held for this patient. I then spoke to the [place] [facility] again, and again the patient was declined. I spoke to Dr. Rosado, interventional radiology, a s well as Dr. Raygoza. our radiologist. They all felt that the back abscess did not necessarily need to be drained and could be handled medically through only antibiotics. As such, I reluctantly informed the family that the patient could not be transferred. I then spoke t o Dr. Atkinson, cardiology sexton helper for [facility], and Dr. Atkinson felt that the patient coul d be treated empirically for endocarditis. In essence the opinion was that this patient was elderly, had a lot of comorbidities, they were full and felt reluctant to give us beds for this lady, and that she could be managed medically in the big picture. Dr. Atkinson specifically said that we did not need to prove she had endocarditis and to just g jan her 6-8 weeks of IV antibiotic therapy. As such, the patient already had a PICC line placed. She was [facility] until approximately 05/16/2018. I would recommend C-reactive protein every week . If toward the end of therapy her C-reactive protein was too high, continue therapy until C-reactiv e protein became lower. Warm handoff was carefully done with Dr. Nation explaining why this woman with osteomyelitis and an a bscess, was transferred to his facility without a definitive diagnosis or treatment of the abscess wa s done. She was transferred in stable condition. This leonard, leonard lady is very chatty, a delight to be wi th. She regards all visitors to her room as good friends and loves nothing more than to sit down and speak to them. She has intermittent back pain during her stay. Pain was controlled with ibuprofen and Tylenol. PHYSICAL EXAMINATION Vital Signs: Temperature was 36.3, pulse was 72, blood pressure 162/62, respirations 18, 95% on room air. GENERAL: She is a short statured elderly female in no acute distress. Speech is normal, wearing eye glasses, loves to watch TV. Able to sit up in her bed and chair to eat breakfast. She is able to a mbulate with a walker and shuffling gait as long as a gait belt is held around her waist. LUNGS: Revealed diminished breath sounds at the bases. Occasional rhonchi that is not always presen t. No increased respiratory effort. No respiratory distress at all. HEART: PMI is normally placed with a regular rate and rhythm and a soft systolic ejection murmur at the left lower sternal border. ABDOMEN: Soft, nontender. No organomegaly. EXTREMITIES: Without clubbing, cyanosis or edema. When she first got to us, she had quite thick sca ling lower extremity skin that has improved tremendously over the course of her stay with bathing, an d creams. It is recommended that she get Vee cream. As she is not incontinent of urine, and is v agueda good letting at nursing know that she needs to get up to go to the bathroom. It is recommended that she get physical therapy at the custodial facility. Plan is to return h er to assisted living facility after completion of her treatment for the above infections. I do lobo mmend that if she developed any type of neurological disease stabilization, that she be immediately t ransferred to a higher level of care such as [place]. The main argument for not bringing her ther e for neurosurgical evaluation was lack of cauda equina or lower extremity weakness. Greater than 30 minutes was spent coordinating discharge. TD: 04/09/2018 17:00
== END 2018-04-09 14:43 | DRG 557 ==
LOC: EDUNIT# → ED 10:15 → MS2 10:44
PROVIDERS: ADMIT Internal Medicine; ATTEND Specialist
PROC: 0W9B3ZX Drainage of Left Pleural Cavity, Percutaneous Approach, Diagnostic (ICD-10-PCS; principal; 2018-04-01)
PROC: 0W993ZX Drainage of Right Pleural Cavity, Percutaneous Approach, Diagnostic (ICD-10-PCS; 2018-04-01)
PROC: 02HV33Z Insertion of Infusion Device into Superior Vena Cava, Percutaneous Approach (ICD-10-PCS; 2018-04-06)
DX: M60.08 Infective myositis, other site (principal); G93.41 Metabolic encephalopathy; J18.1 Lobar pneumonia, unspecified organism; F03.90 Unspecified dementia, unspecified severity, without behavioral disturbance, psychotic disturbance, mood disturbance, and anxiety; M46.25 Osteomyelitis of vertebra, thoracolumbar region; L98.9 Disorder of the skin and subcutaneous tissue, unspecified; R40.2412 Glasgow coma scale score 13-15, at arrival to emergency department; Z96.659 Presence of unspecified artificial knee joint; E87.1 Hypo-osmolality and hyponatremia; J91.8 Pleural effusion in other conditions classified elsewhere; I38 Endocarditis, valve unspecified; N30.00 Acute cystitis without hematuria; N17.9 Acute kidney failure, unspecified; R78.81 Bacteremia; M46.45 Discitis, unspecified, thoracolumbar region; B95.61 Methicillin susceptible Staphylococcus aureus infection as the cause of diseases classified elsewhere; M25.461 Effusion, right knee; E87.6 Hypokalemia; E86.0 Dehydration; E86.1 Hypovolemia; G30.9 Alzheimer's disease, unspecified; F02.80 Dementia in other diseases classified elsewhere, unspecified severity, without behavioral disturbance, psychotic disturbance, mood disturbance, and anxiety; J45.909 Unspecified asthma, uncomplicated; R09.02 Hypoxemia; I10 Essential (primary) hypertension; E78.5 Hyperlipidemia, unspecified; G89.29 Other chronic pain; M47.9 Spondylosis, unspecified; M48.02 Spinal stenosis, cervical region; M48.061 Spinal stenosis, lumbar region without neurogenic claudication; M48.07 Spinal stenosis, lumbosacral region; H91.90 Unspecified hearing loss, unspecified ear; Z66 Do not resuscitate; Z16.11 Resistance to penicillins; Z96.652 Presence of left artificial knee joint; Z90.10 Acquired absence of unspecified breast and nipple; Z85.3 Personal history of malignant neoplasm of breast; Z79.82 Long term (current) use of aspirin; Z79.899 Other long term (current) drug therapy; Z79.51 Long term (current) use of inhaled steroids
CPT/HCPCS: 32555; 36415; 71045; 72126; 72129; 72132; 72148; 73565; 73701; 74177; 80048; 80053; 80202; 81001; 81003; 81599; 83605; 83615; 83735; 84100; 85025; 85610; 86141; 87040; 87070; 87086; 87181; 87205; 89051; 93306; 94640; 99284

== ENCOUNTER 2018-04-20 08:00 | Outpatient (CLI) | payer MEDICARE, OTHER ==
[2018-04-20 13:34] LABS: BASOPHILS % (AUTO) 0.6 %; EOSINOPHILS # (AUTO) 0.1 10^3/uL (0.0-0.7); EOSINOPHILS % (AUTO) 0.8 %; HGB - HEMOGLOBIN 10.6 g/dL (12.0-16.0); LYMPHOCYTES # (AUTO) 1.4 10^3/uL (1.5-3.5); MEAN CORPUSCULAR HEMOGLOBIN 28.3 pg (27.0-31.0); MEAN CORPUSCULAR HGB CONC 33.9 g/dL (32.0-36.0); MEAN CORPUSCULAR VOLUME 83.7 fL (81.0-99.0); MEAN PLATELET VOLUME 7.1 fL (7.9-10.8); MONOCYTES # (AUTO) 0.5 10^3/uL (0.0-1.0); MONOCYTES % (AUTO) 6.5 %; NEUTROPHILS # (AUTO) 5.8 10^3/uL (1.5-6.6); NEUTROPHILS % (AUTO) 74.1 %; PLT - PLATELET COUNT 350 10^3/uL (130-450); RED BLOOD COUNT 3.74 10^6/uL (4.20-5.40); RED CELL DISTRIBUTION WIDTH 13.9 % (12.0-15.0); WHITE BLOOD COUNT 7.9 x10^3/uL (4.8-10.8)
[2018-04-20 14:00] LABS: CALCIUM 10.4 mg/dL (8.5-10.3); CREATININE 0.7 mg/dL (0.4-1.0); CRP - C-REACTIVE PROTEIN 5.6 mg/dL (0-1.0)
== END 2018-04-20 23:59 | disposition home or self-care (01) ==
LOC: LAB.R 08:00
DX: R79.89 Other specified abnormal findings of blood chemistry (principal); R68.3 Clubbing of fingers; R70.0 Elevated erythrocyte sedimentation rate; R79.82 Elevated C-reactive protein (CRP)
CPT/HCPCS: 80048; 85025; 85651; 86140

== ENCOUNTER 2018-04-26 16:00 | Outpatient (CLI) | payer MEDICARE, OTHER ==
[2018-04-26 01:03] LABS: BASOPHILS # (AUTO) 0.1 10^3/uL (0.0-0.1); BASOPHILS % (AUTO) 0.9 %; EOSINOPHILS # (AUTO) 0.2 10^3/uL (0.0-0.7); EOSINOPHILS % (AUTO) 2.2 %; HGB - HEMOGLOBIN 9.9 g/dL (12.0-16.0); LYMPHOCYTES # (AUTO) 1.7 10^3/uL (1.5-3.5); LYMPHOCYTES % (AUTO) 21.1 %; MEAN CORPUSCULAR HEMOGLOBIN 27.9 pg (27.0-31.0); MEAN CORPUSCULAR HGB CONC 32.5 g/dL (32.0-36.0); MEAN CORPUSCULAR VOLUME 85.7 fL (81.0-99.0); MEAN PLATELET VOLUME 7.4 fL (7.9-10.8); MONOCYTES # (AUTO) 0.8 10^3/uL (0.0-1.0); MONOCYTES % (AUTO) 9.9 %; NEUTROPHILS # (AUTO) 5.2 10^3/uL (1.5-6.6); NEUTROPHILS % (AUTO) 65.9 %; PLT - PLATELET COUNT 314 10^3/uL (130-450); RED BLOOD COUNT 3.55 10^6/uL (4.20-5.40); RED CELL DISTRIBUTION WIDTH 13.9 % (12.0-15.0); WHITE BLOOD COUNT 7.9 x10^3/uL (4.8-10.8)
[2018-04-26 01:11] LABS: CALCIUM 9.3 mg/dL (8.5-10.3); CREATININE 0.8 mg/dL (0.4-1.0); CRP - C-REACTIVE PROTEIN 5.4 mg/dL (0-1.0)
== END 2018-04-26 23:59 | disposition home or self-care (01) ==
LOC: LAB.R 16:00
DX: R79.82 Elevated C-reactive protein (CRP) (principal); R68.3 Clubbing of fingers; R70.0 Elevated erythrocyte sedimentation rate
CPT/HCPCS: 80048; 85025; 85651; 86140

== ENCOUNTER 2018-05-11 07:10 | Outpatient (CLI) | payer MEDICARE, OTHER ==
[2018-05-11 10:01] LABS: BASOPHILS % (AUTO) 0.5 %; EOSINOPHILS # (AUTO) 0.2 10^3/uL (0.0-0.7); EOSINOPHILS % (AUTO) 3.5 %; HGB - HEMOGLOBIN 9.9 g/dL (12.0-16.0); LYMPHOCYTES # (AUTO) 1.1 10^3/uL (1.5-3.5); LYMPHOCYTES % (AUTO) 16.1 %; MEAN CORPUSCULAR HEMOGLOBIN 27.5 pg (27.0-31.0); MEAN CORPUSCULAR HGB CONC 33.1 g/dL (32.0-36.0); MEAN CORPUSCULAR VOLUME 82.9 fL (81.0-99.0); MEAN PLATELET VOLUME 6.9 fL (7.9-10.8); MONOCYTES # (AUTO) 0.6 10^3/uL (0.0-1.0); MONOCYTES % (AUTO) 9.2 %; NEUTROPHILS # (AUTO) 4.9 10^3/uL (1.5-6.6); NEUTROPHILS % (AUTO) 70.7 %; PLT - PLATELET COUNT 314 10^3/uL (130-450); RED BLOOD COUNT 3.61 10^6/uL (4.20-5.40); RED CELL DISTRIBUTION WIDTH 14.1 % (12.0-15.0); WHITE BLOOD COUNT 6.9 x10^3/uL (4.8-10.8)
[2018-05-11 10:13] LABS: CALCIUM 8.9 mg/dL (8.5-10.3); CREATININE 0.8 mg/dL (0.4-1.0); CRP - C-REACTIVE PROTEIN 4.1 mg/dL (0-1.0)
== END 2018-05-11 07:11 | disposition home or self-care (01) ==
LOC: LAB.R 07:10
DX: K68.12 Psoas muscle abscess (principal)
CPT/HCPCS: 80048; 85025; 85651; 86140

== ENCOUNTER 2018-05-18 08:00 | Outpatient (CLI) | payer MEDICARE, OTHER ==
[2018-05-18 18:15] LABS: BASOPHILS % (AUTO) 0.4 %; EOSINOPHILS # (AUTO) 0.2 10^3/uL (0.0-0.7); HGB - HEMOGLOBIN 10.3 g/dL (12.0-16.0); LYMPHOCYTES # (AUTO) 1.8 10^3/uL (1.5-3.5); LYMPHOCYTES % (AUTO) 23.4 %; MEAN CORPUSCULAR VOLUME 84.3 fL (81.0-99.0); MEAN PLATELET VOLUME 7.4 fL (7.9-10.8); MONOCYTES # (AUTO) 0.7 10^3/uL (0.0-1.0); MONOCYTES % (AUTO) 9.6 %; NEUTROPHILS % (AUTO) 64.6 %; PLT - PLATELET COUNT 295 10^3/uL (130-450); RED CELL DISTRIBUTION WIDTH 14.4 % (12.0-15.0); WHITE BLOOD COUNT 7.7 x10^3/uL (4.8-10.8)
[2018-05-18 18:24] LABS: CALCIUM 9.3 mg/dL (8.5-10.3); CREATININE 0.7 mg/dL (0.4-1.0); CRP - C-REACTIVE PROTEIN 4.7 mg/dL (0-1.0)
== END 2018-05-18 23:59 | disposition home or self-care (01) ==
LOC: LAB.R 08:00
DX: R79.89 Other specified abnormal findings of blood chemistry (principal); R68.89 Other general symptoms and signs; R79.82 Elevated C-reactive protein (CRP); R70.0 Elevated erythrocyte sedimentation rate
CPT/HCPCS: 80048; 85025; 85651; 86140

== ENCOUNTER 2018-05-25 08:00 | Outpatient (CLI) | payer MEDICARE, OTHER ==
[2018-05-25 16:41] LABS: BASOPHILS # (AUTO) 0.1 10^3/uL (0.0-0.1); EOSINOPHILS # (AUTO) 0.1 10^3/uL (0.0-0.7); EOSINOPHILS % (AUTO) 1.8 %; HGB - HEMOGLOBIN 9.9 g/dL (12.0-16.0); LYMPHOCYTES # (AUTO) 1.4 10^3/uL (1.5-3.5); LYMPHOCYTES % (AUTO) 18.1 %; MEAN CORPUSCULAR HEMOGLOBIN 26.9 pg (27.0-31.0); MEAN CORPUSCULAR HGB CONC 31.8 g/dL (32.0-36.0); MEAN CORPUSCULAR VOLUME 84.7 fL (81.0-99.0); MEAN PLATELET VOLUME 7.3 fL (7.9-10.8); MONOCYTES # (AUTO) 0.7 10^3/uL (0.0-1.0); MONOCYTES % (AUTO) 9.8 %; NEUTROPHILS # (AUTO) 5.2 10^3/uL (1.5-6.6); NEUTROPHILS % (AUTO) 69.3 %; PLT - PLATELET COUNT 369 10^3/uL (130-450); RED BLOOD COUNT 3.67 10^6/uL (4.20-5.40); RED CELL DISTRIBUTION WIDTH 14.6 % (12.0-15.0); WHITE BLOOD COUNT 7.6 x10^3/uL (4.8-10.8)
[2018-05-25 16:58] LABS: CALCIUM 9.4 mg/dL (8.5-10.3); CREATININE 0.7 mg/dL (0.4-1.0); CRP - C-REACTIVE PROTEIN 2.9 mg/dL (0-1.0)
== END 2018-05-25 23:59 | disposition home or self-care (01) ==
LOC: LAB.R 08:00
DX: D64.9 Anemia, unspecified (principal); R68.89 Other general symptoms and signs; R79.82 Elevated C-reactive protein (CRP); R70.0 Elevated erythrocyte sedimentation rate
CPT/HCPCS: 80048; 85025; 85651; 86140

== ENCOUNTER 2018-05-27 14:47 | Outpatient (CLI) | payer MEDICARE, OTHER ==
[2018-05-27] MEDS ORDERED: IOVERSOL 320 100 ML VIAL IVP ONE ×2 (15:07→16:18)
--- NOTE | 2018-05-28 10:01 | CT Report ---
Reason: PSOAS MUSCLE ABSCESS Procedure Date: 05/27/2018 Accession Number: [id number] / [id number] Procedure: CT - Thoracic Spine W/ CPT Code: FULL RESULT: CT THORACIC SPINE WITH CONTRAST INDICATION: 88-year-old female with history of psoas abscess. Please reassess. TECHNIQUE: 90 mL of Optiray 320 contrast were injected intravenously. The thoracic spine was scanned helically and data was reconstructed into 2 mm axial images. In addition, sagittal and coronal reformations have been generated. This examination was performed using a bone algorithm. Images are available in bone and soft tissue windows. COMPARISON: 04/05/2018. FINDINGS: There has been interval development of significant pathology at T12-L1 disk level. New areas of bone destruction are identified in the inferior endplate of T12 and superior endplate of L1, on either side of the disk, concerning for the sequela of infectious spondylodiskitis. There is a partially calcified right paracentral extrusion at T12-L1, similar to the previous examination. It projects posteriorly into the spinal canal for roughly 5 mm with associated mass-effect on the ventral aspect of the dural sac. Evaluation is limited on CT; however, no definite epidural phlegmon or abscess is identified. The previously demonstrated abscess in the right quadratus lumborum muscle is not well assessed in field of view provided. There is paravertebral ossification on the right that appears similar to the previous study. No definite right-sided psoas abscess is identified in the field of view provided. No new area of bone destruction is identified elsewhere in the thoracic spine. Again demonstrated is a levoconvex scoliosis with apex at about the T11-T12 disk level, unchanged. In the sagittal plane, alignment is unremarkable. Again demonstrated is minimal anterior wedging of the T6 vertebral body, stable. The T1-T11 vertebral body heights are otherwise preserved. Evaluation for disk herniation/spinal stenosis is limited on this study performed without intrathecal contrast. Grossly the degree of spinal canal narrowing at T12-L1 appears unchanged. There continues to be potentially significant right subarticular zone stenosis at the T12-L1 level. Otherwise, grossly the spinal canal appears patent throughout the thoracic spine. There is relatively severe right-sided foraminal narrowing at T12-L1, unchanged or mildly progressed when compared to the previous study. No other high-grade foraminal stenosis is identified. There has been interval resolution of previously demonstrated right pleural effusion. There is pathology at the lung bases bilaterally, probably representing atelectasis or chronic scarring. No obvious findings of active pneumonia are demonstrated in lower lobe right lung at this time. Again demonstrated is calcified atherosclerotic plaque in the aortic arch and descending thoracic aorta. In addition, again demonstrated is ectasia of the ascending thoracic aorta. It measures up to about 3.5 cm diameter. Also again noted is coronary artery calcification. A right subclavian approach central venous catheter is demonstrated in place. The distal tip of the catheter appears to be at the cavoatrial junction or in upper right atrium. Evaluation is limited due to artifact from motion. No worrisome mediastinal lymphadenopathy is demonstrated. Advanced degenerative changes are noted at the left shoulder. IMPRESSION: 1. 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 There is significant bone destruction involving the inferior endplate of T12 and superior endplate of L1, most pronounced centrally and paracentrally to the right. This is new when compared to previous study 04/05/2018. Prominent paravertebral ossification again noted on the right, similar to the prior study. There is a new sagittally oriented fracture through a right-sided osteophyte, arising from the lateral aspect of the inferior T12 vertebral body (see image 78 of series #5). Again demonstrated is a partially calcified, right paracentral extrusion at T12-L1. This appears similar to the study of 04/05/2018. There continues to be significant right-sided subarticular zone narrowing. Evaluation is limited on CT. However, no definite enhancing epidural phlegmon is demonstrated and no definite epidural abscess is seen. This would be better assessed with MRI. There is significant right-sided foraminal stenosis at T12-L1 that appears to have progressed slightly since the previous examination. There certainly could be compromise of exiting right T12 nerve root. Recommend clinical correlation for possible right T12 radiculopathy. 2. The right-sided quadratus lumborum abscess demonstrated on previous lumbar spine CT is not imaged in the field of view provided. No definite right-sided psoas abscess is demonstrated. 3. Interval resolution of previously seen small right pleural effusion. There is pathology in the lower lobes bilaterally, probably representing atelectasis or chronic scarring. No convincing evidence of active infection in lower lobe right lung at this time. 4. Apart from new changes at T12-L1, imaging of the thoracic spine appears stable when compared to the previous examination of 04/05/2018.
--- NOTE | 2018-05-28 11:27 | CT Report ---
Reason: PSOAS MUSCLE ABSCESS Procedure Date: 05/27/2018 Accession Number: [id number] / [id number] Procedure: CT - Lumbar Spine W/ CPT Code: FULL RESULT: CT LUMBAR SPINE WITH CONTRAST INDICATION: 88-year-old female. Psoas muscle abscess recheck. TECHNIQUE: 90 mL of Optiray 320 contrast were injected intravenously. The lumbar spine was scanned helically and data was reconstructed into 2 mm axial images. In addition, sagittal and coronal reformations have been generated. This examination was performed using a bone algorithm. Images are available in bone and soft tissue windows. In accordance with CT protocol optimization, one or more of the following dose reduction techniques were utilized for this exam: automated exposure control, adjustment of mA and/or KV based on patient size, or use of iterative reconstructive technique. COMPARISON: 1. Lumbar spine CT 04/05/2018. 2. MR spine MRI study 04/07/2018. FINDINGS: There has been interval development of significant pathology at the T12-L1 disk level. The previous unenhanced MRI examination demonstrated findings concerning for probable infectious spondylodiscitis at T12-L1. New on this examination are areas of bone destruction, in the inferior half of the T12 vertebral body and upper third of the L1 vertebral body, most prominent, centrally and paracentrally to the right. These findings are concerning for osteomyelitis with associated bone destruction. Also demonstrated is a new, sagittally-oriented fracture through a lateral osteophyte, arising from the inferior endplate of T12 (see image 80 of series 7). There is asymmetric fullness of the paraspinous soft tissues on the right at this level, suggesting the possibility of paraspinal phlegmon. However, no discrete paraspinous abscess is demonstrated. Again demonstrated is a partially calcified, right paracentral extrusion. It appears to project posteriorly into the spinal canal for roughly 5 mm, essentially unchanged. There is associated right subarticular zone stenosis. No obvious new, epidural mass is identified, however, the possibility of an epidural abscess or phlegmon would be much better evaluated with MRI. There is severe right-sided foraminal narrowing that appears unchanged or minimally progressed when compared to the prior studies from March 2018. The left neural foramen remains patent. No new pathology is identified, elsewhere in the lumbar spine. In particular, no additional new area of infection/bone destruction is demonstrated. Again noted are advanced changes of degenerative disk and facet disease, as documented previously. There is associated, multilevel spinal canal narrowing, most prominent at L3-L4, better demonstrated on the previous MRI examination. There is significant-appearing foraminal narrowing at L1-L2 on the right and at L4-L5 and L5-S1 bilaterally, most pronounced and very severe at L5-S1. There is asymmetric fullness of the right quadratus lumborum muscle. However, the previously demonstrated, central, fluid density within the muscle is no longer seen and appears to have resolved. Degenerative changes again noted in the SI joints bilaterally. There is calcified atherosclerotic plaque in the abdominal aorta and both iliac arteries. No aneurysm is demonstrated. IMPRESSION: 1. There has been significant interval progression in changes of infectious spondylodiscitis at T12-L1. Significant bone destruction is now seen in the T12 and L1 vertebral bodies. In addition, there is a new, pathologic fracture through a marginal osteophyte, arising from the right side of the inferior T12 vertebral body. Again demonstrated is a partially calcified, right paracentral disk herniation at the T12-L1 level, projecting posteriorly into the spinal canal for roughly 5 mm. There is associated, right subarticular zone stenosis. Assessment is limited on this CT performed without intrathecal contrast, however, no obvious new pathology is seen in the epidural space at T12-L1. In particular, no definite new mass-like process is seen to confirm phlegmon or abscess. However, this would be better evaluated with contrast-enhanced MRI. There is severe right-sided foraminal stenosis at T12-L1, where there certainly could be compromise of the exiting right T12 nerve root. 2. There is asymmetric prominence of the right-sided paraspinous soft tissues in the upper lumbar spine, similar to previous CT study of 04/05/2018. However, no discrete psoas abscess is identified at this time. 3. There is mild asymmetric fullness of the right quadratus lumborum muscle when compared to the left. However, the size of the muscle has decreased significantly when compared to previous CT study 04/05/2018 and previously demonstrated, central hypodensity is no longer seen suggesting probable, complete resolution of previously demonstrated intramuscular abscess. COMMENTS: CT provides a poor evaluation of pathology in the spinal canal. Consider further assessment with repeat lumbar spine MRI. A preliminary report for this examination was called to Dr. Nation, following interpretation on 05/27/2018 at 10:05 AM. T
== END 2018-05-27 14:48 | disposition home or self-care (01) ==
LOC: DI 14:47
PROVIDERS: ATTEND Family Medicine
DX: K68.12 Psoas muscle abscess (principal); M46.24 Osteomyelitis of vertebra, thoracic region; M51.25 Other intervertebral disc displacement, thoracolumbar region; M48.05 Spinal stenosis, thoracolumbar region; M25.78 Osteophyte, vertebrae; M48.55XA Collapsed vertebra, not elsewhere classified, thoracolumbar region, initial encounter for fracture
CPT/HCPCS: 72129; 72132; Q9967

== ENCOUNTER 2018-06-01 08:00 | Outpatient (CLI) | payer MEDICARE, OTHER ==
[2018-06-01 18:05] LABS: BASOPHILS # (AUTO) 0.1 10^3/uL (0.0-0.1); BASOPHILS % (AUTO) 0.9 %; EOSINOPHILS # (AUTO) 0.1 10^3/uL (0.0-0.7); EOSINOPHILS % (AUTO) 1.9 %; HGB - HEMOGLOBIN 10.3 g/dL (12.0-16.0); LYMPHOCYTES # (AUTO) 1.2 10^3/uL (1.5-3.5); MEAN CORPUSCULAR HEMOGLOBIN 27.1 pg (27.0-31.0); MEAN CORPUSCULAR HGB CONC 32.3 g/dL (32.0-36.0); MEAN PLATELET VOLUME 7.3 fL (7.9-10.8); MONOCYTES # (AUTO) 0.5 10^3/uL (0.0-1.0); MONOCYTES % (AUTO) 8.8 %; NEUTROPHILS # (AUTO) 4.3 10^3/uL (1.5-6.6); NEUTROPHILS % (AUTO) 69.4 %; PLT - PLATELET COUNT 397 10^3/uL (130-450); RED BLOOD COUNT 3.79 10^6/uL (4.20-5.40); RED CELL DISTRIBUTION WIDTH 14.2 % (12.0-15.0); WHITE BLOOD COUNT 6.1 x10^3/uL (4.8-10.8)
[2018-06-01 18:31] LABS: BUN - BLOOD UREA NITROGEN 25 mg/dL (6-20); CALCIUM 9.2 mg/dL (8.5-10.3); CARBON DIOXIDE - CO2 29 mmol/L (21-32); CHLORIDE 99 mmol/L (101-111); CREATININE 0.8 mg/dL (0.4-1.0); GFR - MDRD 68 (>89); GLUCOSE 139 mg/dL (70-100); SODIUM 135 mmol/L (135-145)
[2018-06-01 18:47] LABS: CRP - C-REACTIVE PROTEIN < 1.0 mg/dL (0-1.0)
== END 2018-06-01 23:59 | disposition home or self-care (01) ==
LOC: LAB.R 08:00
DX: D64.9 Anemia, unspecified (principal); I10 Essential (primary) hypertension
CPT/HCPCS: 80048; 85025; 85651; 86140